=== PATIENT | female | born 1975 | race Caucasian/White ===

== ENCOUNTER → 2016-10-03 | Outpatient (CLI) | payer BC ==
[~2016-10-03] MED LIST: GLC/500 PO; LEVO88TA22 PO; LIOT5TAB9 PO; PRENTAB26
[2016-10-03 10:04] LABS: CHOLESTEROL/HDL RATIO 2.5; ESTIMATED AVERAGE GLUCOSE 100 mg/dl; HA1C FLAG Normal (Normal); THYROID STIMULATING HORMONE 3.8 uIu/ml (0.300-4.500)
== END | disposition home or self-care (01) ==
LOC: C.LAB 07:12
PROVIDERS: ATTEND Family Medicine
DX: E88.81 Metabolic syndrome and other insulin resistance (principal); E03.9 Hypothyroidism, unspecified

== ENCOUNTER → 2016-10-24 | Outpatient (CLI) | payer BC ==
--- NOTE | 2016-10-24 14:27 | MAMMOGRAPHY REPORT ---
BILATERAL FIRST EVER DIGITAL SCREENING MAMMOGRAM TOMOSYNTHESIS WITH CAD: 10/24/2016 CLINICAL HISTORY: Routine screening. Baseline exam. TECHNIQUE: Breast tomosynthesis in addition to standard 2D mammography was performed. Current study was also evaluated with a Computer Aided Detection (CAD) system. COMPARISON: No prior exams were available for comparison. BREAST COMPOSITION: The tissue of both breasts is heterogeneously dense, which may obscure small ma sses. FINDINGS: No suspicious masses, calcifications, or areas of architectural distortion are noted in e ither breast. IMPRESSION: ACR BI-RADS CATEGORY 1: NEGATIVE There is no mammographic evidence of malignancy. A 1 year screening mammogram is recommended. The p atient will receive written notification of the results. Approximately 10% of breast cancers are not detected with mammography. A negative mammographic repor t should not delay biopsy if a clinically suggestive mass is present. Mercedes Betancourt M.D. ah/:10/24/2016 10:33:57 Bus Driver: Gregory PEDRAZA(Pooja)(Boy), [facility] letter sent: Normal 1/2 BI-RADS Code: ACR BI-RADS Category 1: Negative
== END | disposition home or self-care (01) ==
LOC: C.MAMM 09:45
PROVIDERS: ATTEND Obstetrics & Gynecology
DX: Z12.31 Encounter for screening mammogram for malignant neoplasm of breast (principal)

== ENCOUNTER → 2016-11-26 | Outpatient (CLI) | payer BC ==
[2016-11-26 19:32] LABS: THYROID STIMULATING HORMONE 0.203 uIu/ml (0.300-4.500)
== END | disposition home or self-care (01) ==
LOC: C.LAB 18:13
PROVIDERS: ATTEND Family Medicine
DX: E03.9 Hypothyroidism, unspecified (principal)

== ENCOUNTER → 2017-01-28 | Outpatient (CLI) | payer BC | END | disposition home or self-care (01) | LOC: C.LAB 18:19 | PROVIDERS: ATTEND Family Medicine | DX: E03.9 Hypothyroidism, unspecified (principal) ==

== ENCOUNTER → 2017-03-29 | Outpatient (CLI) | payer BC ==
[2017-03-29 10:13] LABS: ALT/SGPT 53 U/L (12-78); AST/SGOT 25 U/L (15-37); BLOOD UREA NITROGEN 14 mg/dl (7-18); BUN/CREATININE RATIO 16.6 (10-20); CALCIUM 8.2 mg/dl (8.5-10.1); CARBON DIOXIDE 29 mmol/L (21-32); CHLORIDE 107 mmol/L (98-107); CREATININE 0.82 mg/dl (0.60-1.20); GLUCOSE 89 mg/dl (70-99); POTASSIUM 3.7 mmol/L (3.5-5.1); SODIUM 139 mmol/L (136-145)
[2017-03-29 10:22] LABS: ALKALINE PHOSPHATASE 90 U/L (45-117); CHOLESTEROL 202 mg/dl (0-200); CHOLESTEROL/HDL RATIO 2.7; HDL CHOLESTEROL 74 mg/dl; LDL CHOLESTEROL CALCULATED 116 mg/dl; THYROID STIMULATING HORMONE 0.304 uIu/ml (0.300-4.500); TRIGLYCERIDES 59 mg/dl (0-150); VERY LOW DENSITY LIPOPROT CALC 12 mg/dl
[2017-03-29 12:28] LABS: ESTIMATED AVERAGE GLUCOSE 103 mg/dl; HA1C FLAG Normal (Normal)
== END | disposition home or self-care (01) ==
LOC: C.LAB 07:28
PROVIDERS: ATTEND Family Medicine
DX: E88.81 Metabolic syndrome and other insulin resistance (principal)

== ENCOUNTER → 2017-04-04 | Outpatient (CLI) | payer BC ==
[2017-04-04 09:39] LABS: URINE APPEARANCE CLEAR (CLEAR); URINE BILIRUBIN NEG (NEG); URINE COLOR YELLOW; URINE NITRITE NEG (NEG); URINE PH 8.5 (4.5-7.5); URINE SPECIFIC GRAVITY 1.016 (1.000-1.030); UROBILINOGEN NEG (NEG)
[2017-04-04 09:50] LABS: MANUAL MICROSCOPIC REQUIRED? NO; REVIEW REQ? NO
[2017-04-09 23:56] LABS: ANTI-CENTROMERE AB <1.0 NEG AI (<1.0 NEG); ANTI-SS-A <1.0 NEG AI (<1.0 NEG); ANTI-SS-B <1.0 NEG AI (<1.0 NEG); DNA ds CRITHIDIA NEGATIVE (NEGATIVE); Sm Antibody <1.0 NEG AI (<1.0 NEG)
== END ==
LOC: C.LAB 08:07
PROVIDERS: ATTEND Family Medicine
DX: R76.8 Other specified abnormal immunological findings in serum (principal)

== ENCOUNTER → 2017-06-25 | Outpatient (CLI) | payer BC | END | disposition home or self-care (01) | LOC: C.LAB 08:30 | PROVIDERS: ATTEND Family Medicine | DX: E03.9 Hypothyroidism, unspecified (principal); M19.90 Unspecified osteoarthritis, unspecified site ==

== ENCOUNTER → 2017-08-30 | Outpatient (CLI) | payer BC | END | disposition home or self-care (01) | LOC: C.PAPS 15:17 | PROVIDERS: ATTEND Obstetrics & Gynecology | DX: Z01.419 Encounter for gynecological examination (general) (routine) without abnormal findings (principal) ==

== ENCOUNTER → 2017-10-18 | Outpatient (CLI) | payer BC, OTHER | END | disposition home or self-care (01) | LOC: C.LAB 07:45 | PROVIDERS: ATTEND Family Medicine | DX: E03.9 Hypothyroidism, unspecified (principal); E55.9 Vitamin D deficiency, unspecified ==

== ENCOUNTER → 2017-11-28 | Outpatient (CLI) | payer BC ==
--- NOTE | 2017-12-02 08:06 | MAMMOGRAPHY REPORT ---
BILATERAL DIGITAL SCREENING MAMMOGRAM TOMOSYNTHESIS WITH CAD: 11/28/2017 CLINICAL HISTORY: Routine screening. Patient has no complaints. TECHNIQUE: Breast tomosynthesis in addition to standard 2D mammography was performed. Current study was also evaluated with a Computer Aided Detection (CAD) system. COMPARISON: Comparison is made to exam dated: 10/24/2016 mammogram - [facility]. BREAST COMPOSITION: The tissue of both breasts is heterogeneously dense, which may obscure small mas ses. FINDINGS: There are two adjacent partially circumscribed and partially obscured 5 mm masses seen with in the left medial breast on the CC tomosynthesis images, not clearly evident on the MLO views. Tony mmend ultrasound and possible additional spot compression views for further evaluation. These may re present cysts or intramammary lymph nodes. The remainder of both breasts demonstrate no suspicious ma sses, calcifications, or areas of architectural distortion. IMPRESSION: ACR BI-RADS CATEGORY 0: INCOMPLETE EVALUATION: NEED ADDITIONAL IMAGING EVALUATION Two medial left breast masses, for which additional imaging evaluation is recommended. The patient w ill be called to schedule an appointment. Approximately 10% of breast cancers are not detected with mammography. A negative mammographic report should not delay biopsy if a clinically suggestive mass is present. Mercedes Betancourt M.D. ah/:11/28/2017 16:28:46 Public Address Systems Mechanic: Pooja Small M, [facility] letter sent: Addl Imaging 0 BI-RADS Code: ACR BI-RADS Category 0: Incomplete Evaluation: Need Additional Imaging Evaluation
== END | disposition home or self-care (01) ==
LOC: C.MAMM 11:25
PROVIDERS: ATTEND Obstetrics & Gynecology
DX: Z12.31 Encounter for screening mammogram for malignant neoplasm of breast (principal); N63.20 Unspecified lump in the left breast, unspecified quadrant

== ENCOUNTER → 2017-12-10 | Outpatient (CLI) | payer BC ==
--- NOTE | 2017-12-10 12:47 | MAMMOGRAPHY REPORT ---
UNILATERAL LEFT DIGITAL DIAGNOSTIC MAMMOGRAM TOMOSYNTHESIS AND TARGETED LEFT ULTRASOUND: 12/10/2017 CLINICAL HISTORY: 42-year-old woman called back from screening mammography for 2 medial breast masses measuring 5 mm. TECHNIQUE: Spot compression left CC and MLO tomosynthesis images were obtained. COMPARISON: Comparison is made to exams dated: 11/28/2017 mammogram and 10/24/2016 mammogram - [facility]. BREAST COMPOSITION: The tissue of the left breast is extremely dense, which lowers the sensitivity o f mammography. FINDINGS: The spot compression tomosynthesis left CC view demonstrates 1 persistent oval circumscribe d 5.7 x 3.6 mm mass in the medial, middle one third of the breast. The other nodularity in the middl e to anterior medial breast may correspond with tortuous blood vessels, which are best appreciated on the tomosynthesis images. There is no evidence of a spiculated or irregular mass, area of solution architect ural distortion or suspicious calcifications. Further evaluation with ultrasound was performed throu ghout the medial left breast. Targeted ultrasound was performed throughout the medial left breast. There are numerous anechoic hanna ign cysts seen throughout the upper inner quadrant. No suspicious solid or cystic mass is seen throu ghout the left lower inner quadrant. The largest benign simple cysts are seen in the 9:00 left breas t, 3 cm from the nipple, measuring 6.1 x 3.3 x 4.9 mm. This cyst is thought to correspond with the pe rsistent circumscribed 5 mm mammographic mass. In the 11:00 left breast, 5 cm from the nipple, measur ing 6.5 x 3.8 x 5.9 mm, and in the 10:00 left breast, 2 cm from the nipple, measuring 5.8 mm. No sánchez picious solid mass is definitely seen. IMPRESSION: ACR BI-RADS CATEGORY 2: BENIGN, TARGETED ULTRASOUND ACR BI-RADS CATEGORY 2: BENIGN The spot compression tomosynthesis images of the left breast demonstrate only one definitive oval cir cumscribed 5 mm mass in the medial, middle one third of the left breast, thought to correlate with a benign simple cyst on ultrasound. Additional mammographic nodularity could represent tortuous and ec tatic vascular structures. Targeted ultrasound performed throughout the medial left breast demonstra farhan numerous benign cysts compatible with fibrocystic changes. There is no mammographic or targeted sonographic evidence of malignancy in the left breast. Recommend routine screening tomosynthesis joan mography in 1 year. Approximately 10% of breast cancers are not detected with mammography. A negative mammographic report should not delay biopsy if a clinically suggestive mass is present. Nery Deshpande M.D. ay/:12/10/2017 12:13:53 Inspector Tubes: Sheridan PACHECO)(Boy), [facility] letter sent: Normal 1/2 BI-RADS Code: ACR BI-RADS Category 2: Benign Ultrasound BI-RADS: ACR BI-RADS Category 2: Benign
== END | disposition home or self-care (01) ==
LOC: C.MAMM 11:11
PROVIDERS: ATTEND Obstetrics & Gynecology
DX: N63.20 Unspecified lump in the left breast, unspecified quadrant (principal); N60.02 Solitary cyst of left breast

== ENCOUNTER 2023-01-09 21:41 | Inpatient (IN) ==
[2023-01-09] MEDS ORDERED: SODIUM CHLORIDE 0.9% 1000ML 1,000 ML IV SCH ×2 (22:00→23:15)
--- NOTE | 2023-01-09 22:06 | Emergency Department Note ---
History of Present Illness General Chief complaint: Tachycardia Stated complaint: FAST HEART RATE, Time Seen by Provider: 01/09/23 21:49 History of Present Illness Maximum Pain Intensity: 4 This is a 47-year-old female presenting to the emergency department for evaluation of elevated heart rate for the past 2 days. Patient has a complicated medical history including breast cancer. She is on chemotherapy, and has been on treatment for roughly 2 years. She previously has undergone ra diation treatment. There is history of thyroid disease as well. The patient has not had known fevers or chills. No chest pain or chest tightness. She feels like she is using the bathroom as normal. She has had some intermittent palpitations throughout her cancer experience, but never to this extent and for this length of time. She has been drinking increased water. She does not have any URI or distinct fever. She may have had chills the other day. She does have a port available for access rates her current discomfort a 4/10. There is an old history of DVT, and she is not currently on any blood thinners. Home Medications Medication Instructions Recorded Confirmed Type venlafaxine 150 mg 150 mg PO QAM 02/06/19 01/09/23 History capsule,extended release 24 hr albuterol sulfate 90 mcg/actuation 2 puffs inhalation Q4H PRN 02/08/20 01/09/23 Rx aerosol inhaler shortness of breath or wheezing #1 g cholecalciferol (vitamin D3) 125 5,000 units PO DAILY 02/08/20 01/09/23 History mcg (5,000 unit) tablet meloxicam 15 mg tablet 15 mg PO DAILY PRN pain #30 tabs 02/08/20 01/09/23 Rx AMINO ACID SUPREME 1 tab PO QAM 12/29/20 01/09/23 History YOLANDE MAG 1 tab PO QAM 12/29/20 01/09/23 History PROBIOTIC SUPREME 1 tab PO QAM 12/29/20 01/09/23 History THYROMIN 1 tab PO QAM 12/29/20 01/09/23 History cetirizine 10 mg tablet 10 mg PO DAILY 12/29/20 01/09/23 History sertraline 50 mg tablet 75 mg PO QAM 11/07/21 01/09/23 History medical marijuana 1 dose inhalation DIRECTED PRN 03/19/22 01/09/23 History NEEDED xpowwhdcod-[id number]-skklycet 1 tab PO Q4H PRN migraine headache 04/24/22 01/09/23 History 50 mg-325 mg-40 mg tablet loratadine 10 mg tablet (Claritin) 10 mg PO DAILY 04/24/22 01/09/23 History pantoprazole 40 mg tablet,delayed 40 mg PO DAILY 04/24/22 01/09/23 History release anastrozole 1 mg tablet 1 mg PO DAILY 10/05/22 01/09/23 History multivitamin 1 tab PO DAILY 10/05/22 01/09/23 History ondansetron HCl 8 mg tablet 8 mg PO Q8H PRN NAUSEA/VOMITING 10/05/22 01/09/23 History prochlorperazine maleate 10 mg 10 mg PO Q6H PRN NAUSEA/VOMITING 10/05/22 01/09/23 History tablet (Compazine) sennosides 8.6 mg tablet (Senokot) 8.6 mg PO DAILY 10/05/22 01/09/23 History levothyroxine 100 mcg tablet 100 mcg PO DAILY #30 tabs 12/19/22 01/09/23 Rx liothyronine 5 mcg tablet 5 mcg PO QAM #90 tabs 01/08/23 01/09/23 Rx goserelin 3.6 mg subcutaneous 0 mg subcut MONTHLY 01/09/23 01/09/23 History implant (Zoladex) Allergies Allergy/AdvReac Type Severity Reaction Status Date / Time animal dander Allergy Intermediate NASAL Verified 01/09/23 22:50 CONGESTION house dust AdvReac Intermediate NASAL Verified 01/09/23 22:50 CONGESTION Past Med/Surg History Medical History Allergic rhinitis TAMERA positive mixed connective disorder Arthritis Depression, major DVT (deep venous thrombosis) Right subclavian 11/2021 Dysmetabolic syndrome X GERD without esophagitis Jagjit's thyroiditis Hiatal hernia Hypercholesterolemia Hyperlipidemia Hypothyroidism Irregular menstrual cycle Low back pain Migraine headache Multilevel degenerative disc disease Psoriasis Raynaud's disease Reactive airway disease Tinnitus Surgical History H/O bilateral mastectomy (04/03/22) w/ reconstruction H/O dilation and curettage 2010 History of History of eye surgery History of wisdom tooth extraction Port-A-Cath in place (11/20/21) Port placement with fluoroscopy. Dr. Hebert 11/20/2021 Family History Mother Hypertension Dyslipidemia Grandfather Cancer Colorectal cancer Grandfather (Maternal) Myocardial infarction Prostate cancer Heart disease Stroke Father Hypertension Grandfather (Paternal) Pancreatic cancer Other Environmental allergies No family history of adverse response to anesthesia No family history of bleeding disorder Denies family history of Ovarian cancer Breast cancer Social History Smoking Status: Never smoker Second Hand Exposure: No; Do You Dip or Chew Tobacco: No; Hx Alcohol Use: No (no alcohol for year and a half) Hx Substance Use: No Preferred Language: Burundian Communication Ability: Effective Visual Impairment: No Limitations Hearing Ability: Normal Commercial Lending Assistant Required: No Beliefs That Will Affect Care: None marital status: Current Living Situation: Spouse current occupational status: employed 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 How many Children do You have: 4 Feels Safe at Home: Yes Childhood Exposure to Second-Hand Smoke: Yes Diet Comment: paleo diet caffeine: Yes during the past year weight has: remained stable Dental Care, Regularly: Yes Physical Activity Frequency: Daily Seatbelt Use: always Sunscreen Use: Yes Assistive Devices: Glasses Review of Systems A total of 10 systems reviewed and were otherwise negative Physical Exam Vital Signs Vital Signs - 24 hr 01/10/23 00:00 01/10/23 00:30 01/10/23 00:55 Pulse Rate 107 H 98 H Pulse Rate from SpO2 Sensor 106 H 98 H Respiratory Rate 14 23 Blood Pressure 106/66 Blood Pressure Mean 79 Pulse Oximetry 94 94 96 Oxygen Delivery Method Room Air Room Air Room Air 01/10/23 01:00 Pulse Rate 92 H Pulse Rate from SpO2 Sensor 93 H Respiratory Rate 18 Blood Pressure 91/61 L Blood Pressure Mean 71 Pulse Oximetry 94 Oxygen Delivery Method Room Air VITALS: Vitals are noted on the nurse's note and reviewed by myself. Vital sig ns with notable tachycardia. GENERAL: Well-developed, well-nourished, white female, who is in no acute distress and resting comfortably. Patient is cooperative with the examination. HEAD: Normocephalic atraumatic. NECK: Supple without nuchal rigidity. No lymphadenopathy. No thyromegaly. Cervical spine is nontender. HEART: Tachycardic rate with regular rhythm LUNGS: Clear to auscultation bilaterally without wheezes, rales or rhonchi. No retractions or accessory muscle use. ABDOMEN: Positive normal bowel sounds x 4. Soft, nontender, without masses or organomegaly. No guarding or rebound tenderness. MUSCULOSKELETAL: No muscle atrophy, erythema, or edema noted. Full range of motion in all extremities. NEURO: Patient was alert and oriented to person place and time. CN II through XII grossly intact. No focal neurological deficits. GCS 15. Course Administered Medications Acetaminophen (Acetaminophen 325 Mg Tab) 650 mg PO Q4H PRN PRN Reason: Pain or Fever Stop: 02/09/23 02:18 Last Admin: 01/10/23 20:44 Dose: 650 mg Documented By: Admin: 01/10/23 16:27 Dose: 650 mg Documented By: Admin: 01/10/23 11:54 Dose: 650 mg Documented By: ALENA Anastrozole (Anastrozole 1 Mg Tab) 1 mg PO DAILY [facility] Stop: 02/09/23 08:59 Last Admin: 01/10/23 08:05 Dose: 1 mg Documented By: ALENA Co-signed By: Aspirin (Aspirin 81 Mg Ectab) [facility] [place]: 01/11/23 09:01 Last Admin: 01/10/23 09:43 Dose: 81 mg Documented By: ALENA Heparin Sodium (Porcine) (Heparin Sod 5,000 Unit/0.5 Ml Vial) 5,000 units SQ Q12 [facility] Stop: 02/09/23 08:59 Last Admin: 01/10/23 19:57 Dose: 5,000 units Documented By: Admin: 01/10/23 08:06 Dose: 5,000 units Documented By: ALENA Vancomycin HCl 1,000 mg/ (Sodium Chloride) 270 mls @ 200 mls/hr IV Q12H [facility]; Protocol Stop: 01/12/23 04:59 Last Infusion: 01/10/23 17:48 Dose: 0 mls/hr Documented By: Admin: 01/10/23 16:27 Dose: 200 mls/hr Documented By: Infusion: 01/10/23 06:52 Dose: 0 mls/hr Documented By: Admin: 01/10/23 05:31 Dose: 200 mls/hr Documented By: LUCERO Lactobacillus Acidophilus (Advanced Probiotic 1250 Mg Capsule) 2 cap PO QAM [facility] Stop: 02/09/23 08:59 Last Admin: 01/10/23 08:06 Dose: 2 cap Documented By: ALENA Levothyroxine Sodium (Levothyroxine Sodium 100 Mcg Tablet) 100 mcg PO DAILYBB LES Stop: 02/09/23 06:29 Last Admin: 01/10/23 05:29 Dose: 100 mcg Documented By: LUCERO Liothyronine Sodium (Liothyronine Sodium 5 Mcg Tab) 5 mcg PO DAILYBB LES Stop: 02/09/23 06:29 Last Admin: 01/10/23 05:29 Dose: 5 mcg Documented By: LUCERO Multivitamins (Multivitamin Tab) 1 tab PO DAILY [facility] Stop: 02/09/23 08:59 Last Admin: 01/10/23 08:06 Dose: 1 tab Documented By: ALENA Pantoprazole Sodium (Pantoprazole 40 Mg Tab) 40 mg PO DAILY [facility] Stop: 02/09/23 08:59 Last Admin: 01/10/23 09:43 Dose: 40 mg Documented By: ALENA Sennosides (Senna 8.6 Mg Tab) 8.6 mg PO DAILY [facility]ES Stop: 02/09/23 08:59 Last Admin: 01/10/23 08:06 Dose: 8.6 mg Documented By: ALENA Sertraline HCl (Sertraline Hcl 50 Mg Tablet) 75 mg PO QAM LES Stop: 02/09/23 08:59 Last Admin: 01/10/23 08:05 Dose: 75 mg Documented By: ALENA Venlafaxine HCl (Venlafaxine Hcl Xr 150 Mg Capxr) 150 mg PO QAM LES Stop: 02/09/23 08:59 Last Admin: 01/10/23 08:05 Dose: 150 mg Documented By: ALENA Vitamin D (Cholecalciferol 5,000 Units 125 Mcg Tab) 5,000 units PO DAILY LES Stop: 02/09/23 08:59 Last Admin: 01/10/23 08:05 Dose: 5,000 units Documented By: ALENA Discontinued Medications Acetaminophen (Acetaminophen 500 Mg Tab) 1,000 mg PO NOW STA Stop: 01/09/23 22:57 Last Admin: 01/09/23 23:23 Dose: 1,000 mg Documented By: IVON Sodium Chloride (Nss 1000ml) 1,000 mls @ 999 mls/hr IV .Q1H1M LES Stop: 01/09/23 23:00 Last Infusion: 01/10/23 00:45 Dose: 0 mls/hr Documented By: Admin: 01/09/23 23:25 Dose: 999 mls/hr Documented By: IVON Sodium Chloride (Nss 1000ml) 1,000 mls @ 999 mls/hr IV .Q1H1M LES Stop: 01/10/23 00:15 Last Infusion: 01/10/23 00:45 Dose: 0 mls/hr Documented By: Admin: 01/09/23 23:28 Dose: 999 mls/hr Documented By: IVON Vancomycin HCl 1,250 mg/ (Sodium Chloride) 525 mls @ 200 mls/hr IV NOW ONE Stop: 01/10/23 01:38 Last Admin: 01/10/23 00:37 Dose: 200 mls/hr Documented By: IVON Piperacillin Sod/Tazobactam Sod (Zosyn) 4.5 gm in 120 mls @ 240 mls/hr IV NOW ONE Stop: 01/09/23 23:30 Last Infusion: 01/10/23 00:18 Dose: 0 mls/hr Documented By: Admin: 01/09/23 23:28 Dose: 240 mls/hr Documented By: IVON Pantoprazole Sodium 40 mg/ (Syringe) 10 mls @ 5 mls/min IV NOW ONE Stop: 01/10/23 00:24 Last Admin: 01/10/23 00:40 Dose: 5 mls/min Documented By: IVON Sodium Chloride (Nss 1000ml) 1,000 mls @ 100 mls/hr IV .Q10H LES Stop: 01/10/23 10:59 Last Infusion: 01/10/23 10:59 Dose: 0 mls/hr Documented By: Admin: 01/10/23 01:47 Dose: 100 mls/hr Documented By: IVON Piperacillin Sod/Tazobactam (Sod 4.5 gm/ Dextrose) 120 mls @ 30 mls/hr IV Q8H LES; Protocol Stop: 01/12/23 05:59 Last Infusion: 01/10/23 14:28 Dose: 0 mls/hr Documented By: Admin: 01/10/23 13:49 Dose: 30 mls/hr Documented By: Infusion: 01/10/23 09:30 Dose: 0 mls/hr Documented By: Admin: 01/10/23 05:30 Dose: 30 mls/hr Documented By: LUCERO Ibuprofen (Ibuprofen 600 Mg Tab) 600 mg PO NOW STA Stop: 01/09/23 22:57 Last Admin: 01/09/23 23:23 Dose: 600 mg Documented By: IVON Ioversol (Optiray 320 500ml) 125 ml IV ONCE ONE Stop: 01/09/23 23:51 Last Admin: 01/09/23 23:51 Dose: 112 ml Documented By: KENNY Potassium Chloride (Potassium Chloride Crtab 20 Meq Tabcr) 20 meq PO NOW STA Stop: 01/10/23 18:15 Last Admin: 01/10/23 18:42 Dose: 20 meq Documented By: ALENA Medical Decision Making Differential Diagnosis Differential diagnosis includes, but is not limited to: Myocardial infarction, dysrhythmia, pericarditis, pneumothorax, aortic aneurysm/dissection, DVT/PE, anxiety, GERD, PUD, electrolyte imbalance, thyroid disorder, pneumonia, bronchitis, pancreatitis, and others Laboratory Data 01/09/23 22:24 01/10/23 08:41 Lab Results 01/09/23 01/09/23 01/09/23 Range/Units 22:24 22:24 22:24 WBC 7.06 (4.8-10.8) K/ul RBC 4.14 L (4.20-5.40) M/uL Hgb 12.0 (12.0-16.0) g/dl Hct 34.7 L (37.0-47.0) % MCV 83.8 (80.0-100.0) fL MCH 29.0 (25.0-34.0) pg MCHC 34.6 (32.0-36.0) g/dL RDW Std Deviation 44.5 (36.4-46.3) fL RDW Coeff of Nichole 14.6 H (11.5-14.5) % Plt Count 72 L (130-400) K/uL MPV 10.2 (9.4-12.4) fL Immature Gran % (Auto) 0.6 % Neut % (Auto) 88.9 % Lymph % (Auto) 3.8 % Weston % (Auto) 6.4 % Eos % (Auto) 0.0 % Baso % (Auto) 0.3 % Neut # (Auto) 6.28 (1.40-6.50) K/uL Lymph # (Auto) 0.27 L (1.2-3.4) K/uL Weston # (Auto) 0.45 (0.11-0.59) K/uL Eos # (Auto) 0.00 (0-0.50) K/uL Baso # (Auto) 0.02 (0-0.2) K/uL Immature Gran # (Auto) 0.04 (0.01-0.20) K/uL Platelet Estimate Decreased L (Normal) Polychromasia 1+ PT 10.6 (9.0-12.0) Seconds INR 1.0 (0.9-1.1) APTT 29.4 (21.0-31.0) Seconds PTT Ratio 1.0 Sodium 128 L (136-145) mmol/L Potassium 3.7 (3.5-5.1) mmol/L Chloride 93 L (98-107) mmol/L Carbon Dioxide 26 (21-32) mmol/L Anion Gap 9 (3-11) BUN 12 (6-23) mg/dl Creatinine 0.79 (0.6-1.2) mg/dl Est Cr Clr Drug Dosing 77.3 ml/min Est GFR ( Amer) 104.0 ml/min Est GFR (Non-Af Amer) 89.8 ml/min BUN/Creatinine Ratio 15.2 (10-20) Glucose 126 H (70-99(Fasting)) mg/dl Lactate (0.4-2.0) mmol/L Calcium 8.4 L (8.6-10.3) mg/dl Total Bilirubin 0.6 (0.2-1.0) mg/dl AST 291 H (13-39) U/L ALT 171 H (7-52) U/L Alkaline Phosphatase 538 H (34-104) U/L Troponin I High Sens 25.7 H (0-14) pg/ml Total Protein 7.3 (6.0-8.3) gm/dl Albumin 3.5 (3.4-5.0) gm/dl Globulin 3.8 (2.5-4.0) gm/dl Albumin/Globulin Ratio 0.9 (0.9-2) Lipase 14 (11-82) U/L TSH (0.300-4.500) uIu/ml Urine Color Urine Appearance (Clear) Urine pH (4.5-7.5) Ur Specific [place] (1.000-1.030) Urine Protein (Negative) Urine Glucose (UA) (Negative) Urine Ketones (Negative) Urine Blood (Negative) Urine Nitrite (Negative) Urine Bilirubin (Negative) Urine Urobilinogen (Negative) Ur Leukocyte Esterase (Negative) Urine WBC (Auto) (0-5) /hpf Urine RBC (Auto) (0-4) /hpf U Hyaline Cast (Auto) (0-5) /lpf U Epithel Cells (Auto) (0-5) /lpf Urine Bacteria (Auto) (Negative) Adenovirus (PCR) (NotDetected) B. pertussis DNA (PCR) (NotDetected) B.parapertussis DNA PCR (NotDetected) C. pneumoniae DNA (PCR) (NotDetected) Coronavirus OC43 (PCR) (NotDetected) Coronavirus HKU1 (PCR) (NotDetected) Coronavirus 229E (PCR) (NotDetected) SARS-CoV-2 (PCR) (NotDetected) Coronavirus NL63 (PCR) (NotDetected) Human Metapneumovir PCR (NotDetected) Influenza Type A (PCR) (NotDetected) Influenza Type B (PCR) (NotDetected) M. pneumoniae (PCR) (NotDetected) Parainfluenza 1 (PCR) (NotDetected) Parainfluenza 2 (PCR) (NotDetected) Parainfluenza 3 (PCR) (NotDetected) Parainfluenza 4 (PCR) (NotDetected) RSV (PCR) (NotDetected) Entero/Rhino (PCR) (NotDetected) Streptococcus sp PCR (NotDetected) Bld Cult ID Panel PCR (NotDetected) 01/09/23 01/09/23 01/09/23 Range/Units 22:24 22:24 22:24 WBC (4.8-10.8) K/ul RBC (4.20-5.40) M/uL Hgb (12.0-16.0) g/dl Hct (37.0-47.0) % MCV (80.0-100.0) fL MCH (25.0-34.0) pg MCHC (32.0-36.0) g/dL RDW Std Deviation (36.4-46.3) fL RDW Coeff of Nichole (11.5-14.5) % Plt Count (130-400) K/uL MPV (9.4-12.4) fL Immature Gran % (Auto) % Neut % (Auto) % Lymph % (Auto) % Weston % (Auto) % Eos % (Auto) % Baso % (Auto) % Neut # (Auto) (1.40-6.50) K/uL Lymph # (Auto) (1.2-3.4) K/uL Weston # (Auto) (0.11-0.59) K/uL Eos # (Auto) (0-0.50) K/uL Baso # (Auto) (0-0.2) K/uL Immature Gran # (Auto) (0.01-0.20) K/uL Platelet Estimate (Normal) Polychromasia PT (9.0-12.0) Seconds INR (0.9-1.1) APTT (21.0-31.0) Seconds PTT Ratio Sodium (136-145) mmol/L Potassium (3.5-5.1) mmol/L Chloride (98-107) mmol/L Carbon Dioxide (21-32) mmol/L Anion Gap (3-11) BUN (6-23) mg/dl Creatinine (0.6-1.2) mg/dl Est Cr Clr Drug Dosing ml/min Est GFR ( Amer) ml/min Est GFR (Non-Af Amer) ml/min BUN/Creatinine Ratio (10-20) Glucose (70-99(Fasting)) mg/dl Lactate 3.1 H* (0.4-2.0) mmol/L Calcium (8.6-10.3) mg/dl Total Bilirubin (0.2-1.0) mg/dl AST (13-39) U/L ALT (7-52) U/L Alkaline Phosphatase (34-104) U/L Troponin I High Sens (0-14) pg/ml Total Protein (6.0-8.3) gm/dl Albumin (3.4-5.0) gm/dl Globulin (2.5-4.0) gm/dl Albumin/Globulin Ratio (0.9-2) Lipase (11-82) U/L TSH 1.052 (0.300-4.500) uIu/ml Urine Color Urine Appearance (Clear) Urine pH (4.5-7.5) Ur Specific [place] (1.000-1.030) Urine Protein (Negative) Urine Glucose (UA) (Negative) Urine Ketones (Negative) Urine Blood (Negative) Urine Nitrite (Negative) Urine Bilirubin (Negative) Urine Urobilinogen (Negative) Ur Leukocyte Esterase (Negative) Urine WBC (Auto) (0-5) /hpf Urine RBC (Auto) (0-4) /hpf U Hyaline Cast (Auto) (0-5) /lpf U Epithel Cells (Auto) (0-5) /lpf Urine Bacteria (Auto) (Negative) Adenovirus (PCR) (NotDetected) B. pertussis DNA (PCR) (NotDetected) B.parapertussis DNA PCR (NotDetected) C. pneumoniae DNA (PCR) (NotDetected) Coronavirus OC43 (PCR) (NotDetected) Coronavirus HKU1 (PCR) (NotDetected) Coronavirus 229E (PCR) (NotDetected) SARS-CoV-2 (PCR) (NotDetected) Coronavirus NL63 (PCR) (NotDetected) Human Metapneumovir PCR (NotDetected) Influenza Type A (PCR) (NotDetected) Influenza Type B (PCR) (NotDetected) M. pneumoniae (PCR) (NotDetected) Parainfluenza 1 (PCR) (NotDetected) Parainfluenza 2 (PCR) (NotDetected) Parainfluenza 3 (PCR) (NotDetected) Parainfluenza 4 (PCR) (NotDetected) RSV (PCR) (NotDetected) Entero/Rhino (PCR) (NotDetected) Streptococcus sp PCR DETECTED A (NotDetected) Bld Cult ID Panel PCR See PCR Comment (NotDetected) 01/09/23 01/10/23 01/10/23 Range/Units 23:50 00:42 00:50 WBC (4.8-10.8) K/ul RBC (4.20-5.40) M/uL Hgb (12.0-16.0) g/dl Hct (37.0-47.0) % MCV (80.0-100.0) fL MCH (25.0-34.0) pg MCHC (32.0-36.0) g/dL RDW Std Deviation (36.4-46.3) fL RDW Coeff of Nichole (11.5-14.5) % Plt Count (130-400) K/uL MPV (9.4-12.4) fL Immature Gran % (Auto) % Neut % (Auto) % Lymph % (Auto) % Weston % (Auto) % Eos % (Auto) % Baso % (Auto) % Neut # (Auto) (1.40-6.50) K/uL Lymph # (Auto) (1.2-3.4) K/uL Weston # (Auto) (0.11-0.59) K/uL Eos # (Auto) (0-0.50) K/uL Baso # (Auto) (0-0.2) K/uL Immature Gran # (Auto) (0.01-0.20) K/uL Platelet Estimate (Normal) Polychromasia PT (9.0-12.0) Seconds INR (0.9-1.1) APTT (21.0-31.0) Seconds PTT Ratio Sodium (136-145) mmol/L Potassium (3.5-5.1) mmol/L Chloride (98-107) mmol/L Carbon Dioxide (21-32) mmol/L Anion Gap (3-11) BUN (6-23) mg/dl Creatinine (0.6-1.2) mg/dl Est Cr Clr Drug Dosing ml/min Est GFR ( Amer) ml/min Est GFR (Non-Af Amer) ml/min BUN/Creatinine Ratio (10-20) Glucose (70-99(Fasting)) mg/dl Lactate 1.0 (0.4-2.0) mmol/L Calcium (8.6-10.3) mg/dl Total Bilirubin (0.2-1.0) mg/dl AST (13-39) U/L ALT (7-52) U/L Alkaline Phosphatase (34-104) U/L Troponin I High Sens (0-14) pg/ml Total Protein (6.0-8.3) gm/dl Albumin (3.4-5.0) gm/dl Globulin (2.5-4.0) gm/dl Albumin/Globulin Ratio (0.9-2) Lipase (11-82) U/L TSH (0.300-4.500) uIu/ml Urine Color Yellow Urine Appearance Clear (Clear) Urine pH 7.5 (4.5-7.5) Ur Specific [place] > 1.045 H (1.000-1.030) Urine Protein 2+ H (Negative) Urine Glucose (UA) Negative (Negative) Urine Ketones Negative (Negative) Urine Blood 1+ H (Negative) Urine Nitrite Negative (Negative) Urine Bilirubin Negative (Negative) Urine Urobilinogen Negative (Negative) Ur Leukocyte Esterase Negative (Negative) Urine WBC (Auto) 1-5 (0-5) /hpf Urine RBC (Auto) 10-30 H (0-4) /hpf U Hyaline Cast (Auto) 1-5 (0-5) /lpf U Epithel Cells (Auto) 5-10 H (0-5) /lpf Urine Bacteria (Auto) Negative (Negative) Adenovirus (PCR) Not Detected (NotDetected) B. pertussis DNA (PCR) Not Detected (NotDetected) B.parapertussis DNA PCR Not Detected (NotDetected) C. pneumoniae DNA (PCR) Not Detected (NotDetected) Coronavirus OC43 (PCR) Not Detected (NotDetected) Coronavirus HKU1 (PCR) Not Detected (NotDetected) Coronavirus 229E (PCR) Not Detected (NotDetected) SARS-CoV-2 (PCR) Not Detected (NotDetected) Coronavirus NL63 (PCR) Not Detected (NotDetected) Human Metapneumovir PCR Not Detected (NotDetected) Influenza Type A (PCR) Not Detected (NotDetected) Influenza Type B (PCR) Not Detected (NotDetected) M. pneumoniae (PCR) Not Detected (NotDetected) Parainfluenza 1 (PCR) Not Detected (NotDetected) Parainfluenza 2 (PCR) Not Detected (NotDetected) Parainfluenza 3 (PCR) Not Detected (NotDetected) Parainfluenza 4 (PCR) Not Detected (NotDetected) RSV (PCR) Not Detected (NotDetected) Entero/Rhino (PCR) Not Detected (NotDetected) Streptococcus sp PCR (NotDetected) Bld Cult ID Panel PCR (NotDetected) ECG Data Attestation: I personally reviewed and interpreted this ECG as follows: Indication: + tachycardia Additional Comments: Sinus tachycardia @[address] and T wave abnormality Anterior leads Abnormal ECG No previous ECGs available MDM Narrative Physical exam and history were performed. Nursing notes, EMR, and Medication List were personally reviewed. No social concerns were identified as barriers to patients care. Patient appears to have elevated heart rate symptoms for the past 2 days bringing her to the ER. Her medical history is complicated as she has breast cancer and is on chemotherapy. She has had difficulty with recurrent left breast infections and had to have her spacers removed relatively recently. She is afebrile here in the department. IV access was established and labs were obtained. She was hydrated with 2 L normal saline. Blood cultures and lactic were performed. An order was placed for continuous cardiac monitoring. The monitor shows a rate of 98 with normal sinus rhythm after 2 L normal saline. Patient's blood work is as above and was reviewed. She does not have a significantly elevated white blood cell count, gross anemia, bandemia, or significant electrolyte imbalance. Her LFTs are elevated of unknown etiology. Lactic is 3.1 concerning for sepsis. She was empirically started on vancomycin and Zosyn as we are unsure of the source. Urine is not with obvious infection. Because of the elevated LFTs and tachycardia with likely sepsis CT scans of the chest and belly were performed. CT scans were reviewed by myself and radiology showing no acute process. Case was discussed with the on-call hospitalist team for ongoing care. Patient is hemodynamically stable and vital signs have started to normalize after fluids and antibiotics. She does have a port which may be possible source. The patient was comfortable with staying in the hospital. Bio fire was negative. Please see the hospitalist team dictations for ongoing care and evaluation. The chart was completed utilizing [employer] Speech Voice Recognition Software. Grammatical errors, random word insertions, pronoun errors, and incomplete sentences are an occasional consequence of this system due to software limit ations, ambient noise, and hardware issues. Any formal questions or concerns about the content, text, or information contained within the body of this dictation should be directly addressed to the provider for clarification. . Impression & Plan Sepsis, Tachycardia, Immunocompromised state Discharge Plan Visit Data Chief Complaint: Tachycardia Stated Complaint: FAST HEART RATE, ED Provider: Alfredo Palacio ED Midlevel Provider: Mohan Brink Discharge Problem: Sepsis, Tachycardia, Immunocompromised state Patient Disposition: Admitted As Inpatient Discharge Instructions Interventions: ED Discharge Assessment Last Done: 01/10/23 02:19
[2023-01-09] MEDS ORDERED: ACETAMINOPHEN 500 MG TAB PO STA (22:56)
[2023-01-09] MEDS ORDERED: IBUPROFEN 600 MG TAB PO STA (22:56)
[2023-01-09] MEDS ORDERED: VANCOMYCIN HCL 1,250 MG in SODIUM CHLORIDE 0.9% 500 ML IV ONE (23:01)
[2023-01-09] MEDS ORDERED: PIPERACILLIN/TAZOBACTAM 4.5 GM/120 ML BAG IV ONE (23:01)
[2023-01-09] MEDS ORDERED: VANCOMYCIN CONSULT ACTIVE PRN (23:01)
[2023-01-09 23:19] LABS: Albumin Globulin Ratio 0.9 (0.9-2); Albumin Level 3.5 gm/dl (3.4-5.0); BUN Creatinine Ratio 15.2 (10-20); Bilirubin,Total 0.6 mg/dl (0.2-1.0); Calcium 8.4 mg/dl (8.6-10.3); Creatinine Clr Calc Pharmacy 77.3 ml/min; Est GFR (Non-African American) 89.8 ml/min; Globulin 3.8 gm/dl (2.5-4.0); Potassium 3.7 mmol/L (3.5-5.1); Total Protein 7.3 gm/dl (6.0-8.3)
[2023-01-09 23:24] LABS: Troponin I High Sensitivity 25.7 pg/ml (0-14)
[2023-01-09 23:41] LABS: Basophils # (auto) 0.02 K/uL (0-0.2); Basophils % (auto) 0.3 %; Hematocrit (blood only) 34.7 % (37.0-47.0); Immature Granulocytes # (auto) 0.04 K/uL (0.01-0.20); Immature Granulocytes % (auto) 0.6 %; Lymphocytes # (auto) 0.27 K/uL (1.2-3.4); Lymphocytes % (auto) 3.8 %; Mean Corpuscular Hgb Conc 34.6 g/dL (32.0-36.0); Mean Corpuscular Volume 83.8 fL (80.0-100.0); Mean Platelet Volume 10.2 fL (9.4-12.4); Monocytes # (auto) 0.45 K/uL (0.11-0.59); Monocytes % (auto) 6.4 %; Neutrophils # (auto) 6.28 K/uL (1.40-6.50); Neutrophils % (auto) 88.9 %; Platelet Count 72 K/uL (130-400); Platelet Estimate Decreased (Normal); Polychromasia 1+; RDW Coefficient of Variation 14.6 % (11.5-14.5); RDW Standard Deviation 44.5 fL (36.4-46.3); Red Blood Count 4.14 M/uL (4.20-5.40); White Blood Count 7.06 K/ul (4.8-10.8)
[2023-01-09] MEDS ORDERED: OPTIRAY 320 500ml IV ONE (23:50)
[2023-01-09 23:51] LABS: Partial Thromboplastin Time 29.4 Seconds (21.0-31.0); Prothrombin Time 10.6 Seconds (9.0-12.0)
--- NOTE | 2023-01-10 00:16 | CT Scan Report ---
Exam(s): CTA CHEST IV Amt: 112 ml optiray 320 EXAM: CT Angiography Chest With Intravenous Contrast CLINICAL HISTORY: Reason for exam: Tachy, Hx Breast Ca. TECHNIQUE: Axial computed tomographic angiography images of the chest with intravenous contrast. CTDI is 15.8 mGy and DLP is 502.2 mGy-cm. Automated exposure control was utilized for the study. A dose lowering technique was utilized adhering to the principles of ALARA. MIP reconstructed images were created and reviewed. COMPARISON: No relevant prior studies available. FINDINGS: Pulmonary arteries: Unremarkable. No pulmonary embolism. Aorta: No acute findings. No thoracic aortic aneurysm. Lungs: There is mild to moderate peribronchial thickening of the central and peripheral bronchi. No mass. No consolidation. Pleural space: Unremarkable. No significant effusion. No pneumothorax. Heart: Unremarkable. No cardiomegaly. No significant pericardial effusion. No evidence of RV dysfunction. Bones/joints: No acute fracture. No dislocation. Soft tissues: Splenomegaly. Hepatic steatosis. Status post left mastectomy with expected postsurgical changes. There is a right subclavian approach Port-A-Cath in the right chest wall. Lymph nodes: Prominent mediastinal and hilar left nodes. IMPRESSION: No evidence of pulmonary emboli. Findings concerning for bronchitis, which may be of infectious or inflammatory etiologies. Prominent mediastinal and hilar left nodes. No consolidation. Splenomegaly. Hepatic steatosis. Status post left mastectomy with expected postsurgical changes. Electronically signed by: Dari Hernandez MD 01/10/23 00:15 AM
--- NOTE | 2023-01-10 00:21 | CT Scan Report ---
Exam(s): CT ABDOMEN + PELVIS With Contrast IV Amt: 112 ml optiray 320 EXAM: CT Abdomen and Pelvis With Intravenous Contrast CLINICAL HISTORY: Reason for exam: Sepsis, cancer pt, elevated lft's. TECHNIQUE: Axial computed tomography images of the abdomen and pelvis with intravenous contrast. CTDI is 10.75 mGy and DLP is 529.73 mGy-cm. Automated exposure control was utilized for the study. A dose lowering technique was utilized adhering to the principles of ALARA. CONTRAST: Patient received 112 ml optiray 320 of IV contrast COMPARISON: Comparison made to prior CT scan of abdomen pelvis from November 16, 2021. FINDINGS: Lung bases: Unremarkable. No mass. No consolidation. ABDOMEN: Liver: Hepatic steatosis. No mass. Gallbladder and bile ducts: Unremarkable. No calcified stones. No ductal dilation. Pancreas: Unremarkable. No mass. No ductal dilation. Spleen: Splenomegaly. Adrenals: Unremarkable. No mass. Kidneys and ureters: Unremarkable. No solid mass. No hydronephrosis. Stomach and bowel: There is thickening and edema of the gastric antrum. PELVIS: Appendix: No findings to suggest acute appendicitis. Bladder: Unremarkable. No mass. Reproductive: Unremarkable as visualized. ABDOMEN and PELVIS: Intraperitoneal space: Unremarkable. No free air. No significant fluid collection. Bones/joints: There is a single sclerotic lesion within the L1 vertebral body. No acute fracture. No dislocation. Soft tissues: Unremarkable. Vasculature: Unremarkable. No abdominal aortic aneurysm. Lymph nodes: Unremarkable. No enlarged lymph nodes. IMPRESSION: Findings concerning for gastritis. Splenomegaly. Hepatic steatosis. Electronically signed by: Dari Hernandez MD 01/10/23 00:20 AM
[2023-01-10] MEDS ORDERED: PANTOprazole 40 MG in SYRINGE 0 ML IV ONE (00:23)
[2023-01-10 00:55] LABS: Adenovirus PCR Not Detected (NotDetected); Bordetella parapertussis PCR Not Detected (NotDetected); Bordetella pertussis PCR Not Detected (NotDetected); Chlamydia pneumoniae PCR Not Detected (NotDetected); Coronavirus 229E PCR Not Detected (NotDetected); Coronavirus CoV-2 (COVID19)PCR Not Detected (NotDetected); Coronavirus HKU1 PCR Not Detected (NotDetected); Coronavirus NL63 PCR Not Detected (NotDetected); Coronavirus OC43PCR Not Detected (NotDetected); Human Metapneumovirus PCR Not Detected (NotDetected); Influenza A PCR Not Detected (NotDetected); Influenza B PCR Not Detected (NotDetected); Mycoplasma pneumoniae PCR Not Detected (NotDetected); Parainfluenza Virus 1 PCR Not Detected (NotDetected); Parainfluenza Virus 2 PCR Not Detected (NotDetected); Parainfluenza Virus 3 PCR Not Detected (NotDetected); Parainfluenza Virus 4 PCR Not Detected (NotDetected); Respiratory Syncytial VirusPCR Not Detected (NotDetected); Rhinovirus/Enterovirus PCR Not Detected (NotDetected)
[2023-01-10] MEDS ORDERED: SODIUM CHLORIDE 0.9% 1000ML 1,000 ML IV SCH (01:00)
[2023-01-10 01:36] LABS: Appearance Urine Clear (Clear); Bacteria Urine Automated Negative (Negative); Bilirubin Urine Negative (Negative); Blood Urine 1+ (Negative); Color Urine Yellow; Glucose Urine UA Negative (Negative); Ketones Urine Negative (Negative); Leukocyte Esterase Urine Negative (Negative); Nitrite Urine Negative (Negative); Specific Gravity Urine > 1.045 (1.000-1.030); Urobilinogen Urine Negative (Negative); pH Urine 7.5 (4.5-7.5)
[2023-01-10 01:47] LABS: Protein Urine 2+ (Negative)
[2023-01-10] MEDS ORDERED: BUTALBITAL/ACETAMIN/CAFFEINE TAB PO PRN (02:19)
[2023-01-10] MEDS ORDERED: POLYETHYLENE (MIRALAX) 17 GM PACK PO PRN (02:19)
[2023-01-10] MEDS ORDERED: ALBUTEROL HFA 8 GM INHALER INH PRN (02:19)
[2023-01-10] MEDS ORDERED: GOSERELIN 3.6 MG SQ SCH (02:19)
[2023-01-10] MEDS ORDERED: ONDANSETRON 4 MG OD TAB PO PRN (02:47)
[2023-01-10] MEDS: LIOTHYRONINE SODIUM 5 MCG TAB PO SCH (05:29)
[2023-01-10] MEDS: LEVOTHYROXINE SODIUM 100 MCG TABLET PO SCH (05:29)
[2023-01-10] MEDS: PIPERACILLIN/TAZOBACTAM 4.5 GM CI (over 4 hours) IV SCH ×2 (05:30→13:49)
[2023-01-10] MEDS: VANCOMYCIN HCL 1,000 MG in SODIUM CHLORIDE 0.9% 250 ML IV SCH ×2 (05:31→16:27)
--- NOTE | 2023-01-10 05:39 | History & Physical Report ---
Date of Service January 10, 2023 Assessment & Plan (1) Lactic acidosis: Plan: Patient presents to ED with complaints of sustained palpitations has been present over the past 2 days. Patient also found to have elevated lactic acid of 3.1 in the ED. Presently on chemotherapy regimen for invasive ductal breast cancer patient is immunosuppressed Hence started on IV fluid bolus along with empiric antibiotic coverage with vancomycin and Zosyn in the ED Follow blood culture results and adjust antibiotics based on sensitivity results Follow lactic acid level and CBC in a.m. UA pending (2) Abnormal LFTs: Plan: Patient found to have elevated AST level of 291 and ALT 171 along with elevated alk phos levels recheck LFTs in a.m. and if remains elevated consider abdominal ultrasound/CT to rule out biliary cause. Obtain heme-onc input to see if LFT abnormality is a side effect of the present chemotherapy regimen (3) Palpitations: Plan: Patient presents with complaints of palpitations over the past 2 days Initial high sensitive troponin 25.7. Will follow trend No acute ST changes reported in ED Patient also presently on levothyroxine and Cytomel for thyroid supplementation. Check TSH level Patient also takes thyronine that is qlkx-klj-dzbiyja thyroid supplementation that could interfere with the thyroid function. Check transthoracic echo (4) Hyponatremia: Plan: Serum sodium level 129 in the ED Patient appears slightly dehydrated . Monitor I's and O's closely Check urine studies including urine sodium and osmolality Recheck sodium level in a.m. (5) Malignant neoplasm of lower-outer quadrant of left breast of female, estrogen receptor positive: Plan: Patient diagnosed with invasive ductal breast cancer presently on Kadcyla and anastrozole Zoladex combination chemotherapy regimen Patient reported to be ER/[place] and HER2 positive Followed by Dr. lyn and presently on chemotherapy regimen. Obtain oncology input (6) Hypothyroidism: Plan: Patient with history of Jagjit thyroiditis and being treated with levothyroxine and Cytomel for thyroid replacement. Patient also takes awsl-usi-rhwvptn supplement thyronine -and these could interfere with the thyroid studies check TSH level and free T4 level to see if this plays a role in patient's presenting symptoms. Admission and Anticipated Discharge Date Admission Date: January 10, 2023 History of Present Illness Chief Complaint: Patient presents to ED with complaints of palpitations Primary Care Provider: Meghann Fraire, This is a 47-year-old female with past medical history significant history of invasive ductal breast cancer on active chemotherapy regimen with anastrozole and Zoladex, hypothyroidism on thyroid replacement therapy, DVT of right subclavian vein treated with a 6-month course of Eliquis who presents to the emergency department with complaints of intermittent palpitation over the past 2 days. Patient reports that she was able to feel better heart rate was elevated over the past 2 days but she denies any chest pain or shortness of breath. Patient reports that she had experienced episodes of palpitations during her chemotherapy regimen over the past 2 years intermittently but this episode patient feels has been more sustained and hence patient became concerned and presents to ED for further evaluation. Patient otherwise denies any fevers but reports possible chills few days ago. Patient has a Mediport for access for chemotherapy regimen. Patient has a prior history of DVT of right subclavian vein treated with a course of Eliquis for 6 months and this has been discontinued. Patient has seen her oncologist Dr Lyn about 2 weeks ago. Patient evaluated in ED and noted labs indicate that her white count was not elevated, sodium level is 128 and a lactate level was elevated at 3.1. Patient also found to have elevated transaminases with AST being 291 and ALT being 171 and alk phos was elevated at 538 Given the elevated lactic acid level patient was started on IV fluids and has been admitted for further management given underlying immunocompromise state as patient is on active chemotherapy. Patient was given a dose of IV vancomycin and Zosyn in the ED for empiric coverage Allergies Allergy/AdvReac Type Severity Reaction Status Date / Time animal dander Allergy Intermediate NASAL Verified 01/09/23 22:50 CONGESTION house dust AdvReac Intermediate NASAL Verified 01/09/23 22:50 CONGESTION Home Medications Medication Instructions Recorded Confirmed Type venlafaxine 150 mg 150 mg PO QAM 02/06/19 01/09/23 History capsule,extended release 24 hr albuterol sulfate 90 mcg/actuation 2 puffs inhalation Q4H PRN 02/08/20 01/09/23 Rx aerosol inhaler shortness of breath or wheezing #1 g cholecalciferol (vitamin D3) 125 5,000 units PO DAILY 02/08/20 01/09/23 History mcg (5,000 unit) tablet meloxicam 15 mg tablet 15 mg PO DAILY PRN pain #30 tabs 02/08/20 01/09/23 Rx AMINO ACID SUPREME 1 tab PO QAM 12/29/20 01/09/23 History YOLANDE MAG 1 tab PO QAM 12/29/20 01/09/23 History PROBIOTIC SUPREME 1 tab PO QAM 12/29/20 01/09/23 History THYROMIN 1 tab PO QAM 12/29/20 01/09/23 History cetirizine 10 mg tablet 10 mg PO DAILY 12/29/20 01/09/23 History sertraline 50 mg tablet 75 mg PO QAM 11/07/21 01/09/23 History medical marijuana 1 dose inhalation DIRECTED PRN 03/19/22 01/09/23 History NEEDED mkpietjhom-tyowpaqzyiyxx-jbiriusd 1 tab PO Q4H PRN migraine headache 04/24/22 01/09/23 History 50 mg-325 mg-40 mg tablet loratadine 10 mg tablet (Claritin) 10 mg PO DAILY 04/24/22 01/09/23 History pantoprazole 40 mg tablet,delayed 40 mg PO DAILY 04/24/22 01/09/23 History release anastrozole 1 mg tablet 1 mg PO DAILY 10/05/22 01/09/23 History multivitamin 1 tab PO DAILY 10/05/22 01/09/23 History ondansetron HCl 8 mg tablet 8 mg PO Q8H PRN NAUSEA/VOMITING 10/05/22 01/09/23 History prochlorperazine maleate 10 mg 10 mg PO Q6H PRN NAUSEA/VOMITING 10/05/22 01/09/23 History tablet (Compazine) sennosides 8.6 mg tablet (Senokot) 8.6 mg PO DAILY 10/05/22 01/09/23 History levothyroxine 100 mcg tablet 100 mcg PO DAILY #30 tabs 12/19/22 01/09/23 Rx liothyronine 5 mcg tablet 5 mcg PO QAM #90 tabs 01/08/23 01/09/23 Rx goserelin 3.6 mg subcutaneous 0 mg subcut MONTHLY 01/09/23 01/09/23 History implant (Zoladex) Past Med/Surg History Medical History Allergic rhinitis TAMERA positive mixed connective disorder Arthritis Depression, major DVT (deep venous thrombosis) Right subclavian 11/2021 Dysmetabolic syndrome X GERD without esophagitis Jagjit's thyroiditis Hiatal hernia Hypercholesterolemia Hyperlipidemia Hypothyroidism Irregular menstrual cycle Low back pain Migraine headache Multilevel degenerative disc disease Psoriasis Raynaud's disease Reactive airway disease Tinnitus Surgical History H/O bilateral mastectomy (04/03/22) w/ reconstruction H/O dilation and curettage 2010 History of History of eye surgery History of wisdom tooth extraction Port-A-Cath in place (11/20/21) Port placement with fluoroscopy. Dr. Hebert 11/20/2021 Family History Mother Hypertension Dyslipidemia Grandfather Cancer Colorectal cancer Grandfather (Maternal) Myocardial infarction Prostate cancer Heart disease Stroke Father Hypertension Grandfather (Paternal) Pancreatic cancer Other Environmental allergies No family history of adverse response to anesthesia No family history of bleeding disorder Denies family history of Ovarian cancer Breast cancer Social History Smoking Status: Never smoker Second Hand Exposure: No; Do You Dip or Chew Tobacco: No; Hx Alcohol Use: No (no alcohol for year and a half) Hx Substance Use: No Preferred Language: [place] Communication Ability: Effective Visual Impairment: No Limitations Hearing Ability: Normal Stock Or Delivery Clerk Required: No Beliefs That Will Affect Care: None marital status: Current Living Situation: Spouse current occupational status: employed 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 No wheezing Cardiac-patient reports palpitations, no chest pain, GI-no nausea, vomiting, diarrhea, -no urinary retention, no urinary incontinence, Musculoskeletal-no joint pain, no muscle tenderness Skin-no bruising, no rashes, no pruritus Neuro-no isolated weakness, Physical Exam Physical Exam: Head and ENT no thyroid enlargement trachea midline Cardiovascular S1-S2 are normal no S3 Lungs bilateral air entry fair no wheezing Abdomen soft nondistended positive bowel sounds no rebound tenderness Extremity shows trace edema Neurologically no focal deficits Skin shows no rash no cyanosis Results & Data Results & Data Vital Signs (Past 12 Hours) Vital Signs Temp Pulse Pulse Resp BP BP Pulse Ox 01/10/23 03:30 86 01/10/23 03:39 36.4 C L 90 18 90/67 L 96 01/10/23 02:30 84 19 95 01/10/23 02:00 89 22 90/61 L 96 01/10/23 01:57 87 01/10/23 01:30 89 24 94 01/10/23 01:00 92 H 18 91/61 L 94 01/10/23 00:55 96 01/10/23 00:30 98 H 23 94 01/10/23 00:00 107 H 14 106/66 94 01/09/23 23:00 119 H 17 112/73 93 01/09/23 23:57 108 H 24 103/67 94 01/09/23 21:59 131 H 01/09/23 21:44 37.0 C 137 H 20 110/72 97 O2 Del Method 01/10/23 03:30 01/10/23 03:39 Room Air 01/10/23 02:30 Room Air 01/10/23 02:00 Room Air 01/10/23 01:57 01/10/23 01:30 01/10/23 01:00 Room Air 01/10/23 00:55 Room Air 01/10/23 00:30 Room Air 01/10/23 00:00 Room Air 01/09/23 23:00 Room Air 01/09/23 23:57 Room Air 01/09/23 21:59 01/09/23 21:44 Room Air Laboratory Results Short CBC 01/09/23 Range/Units 22:24 WBC 7.06 (4.8-10.8) K/ul Hgb 12.0 (12.0-16.0) g/dl Hct 34.7 L (37.0-47.0) % Plt Count 72 L (130-400) K/uL BMP 01/09/23 22:24 Sodium 128 L Potassium 3.7 Chloride 93 L Carbon Dioxide 26 BUN 12 Creatinine 0.79 Glucose 126 H Calcium 8.4 L Liver Function 01/09/23 Range/Units 22:24 Total Bilirubin 0.6 (0.2-1.0) mg/dl AST 291 H (13-39) U/L ALT 171 H (7-52) U/L Alkaline Phosphatase 538 H (34-104) U/L Albumin 3.5 (3.4-5.0) gm/dl Urine 01/10/23 Range/Units 00:50 Urine Color Yellow Urine Appearance Clear (Clear) Urine pH 7.5 (4.5-7.5) Ur Specific [place] > 1.045 H (1.000-1.030) Urine Protein 2+ H (Negative) Urine Glucose (UA) Negative (Negative) Diagnostic Findings Chest CTA 01/09/23 21:59 Exam(s): CTA CHEST IV Amt: 112 ml optiray 320 EXAM: CT Angiography Chest With Intravenous Contrast CLINICAL HISTORY: Reason for exam: Tachy, Hx Breast Ca. TECHNIQUE: Axial computed tomographic angiography images of the chest with intravenous contrast. CTDI is 15.8 mGy and DLP is 502.2 mGy-cm. Automated exposure control was utilized for the study. A dose lowering technique was utilized adhering to the principles of ALARA. MIP reconstructed images were created and reviewed. COMPARISON: No relevant prior studies available. FINDINGS: Pulmonary arteries: Unremarkable. No pulmonary embolism. Aorta: No acute findings. No thoracic aortic aneurysm. Lungs: There is mild to moderate peribronchial thickening of the central and peripheral bronchi. No mass. No consolidation. Pleural space: Unremarkable. No significant effusion. No pneumothorax. Heart: Unremarkable. No cardiomegaly. No significant pericardial effusion. No evidence of RV dysfunction. Bones/joints: No acute fracture. No dislocation. Soft tissues: Splenomegaly. Hepatic steatosis. Status post left mastectomy with expected postsurgical changes. There is a right subclavian approach Port-A-Cath in the right chest wall. Lymph nodes: Prominent mediastinal and hilar left nodes. IMPRESSION: No evidence of pulmonary emboli. Findings concerning for bronchitis, which may be of infectious or inflammatory etiologies. Prominent mediastinal and hilar left nodes. No consolidation. Splenomegaly. Hepatic steatosis. Status post left mastectomy with expected postsurgical changes. Electronically signed by: Dari Hernandez MD 01/10/23 00:15 AM Abdomen/Pelvis CT 01/09/23 23:21 Exam(s): CT ABDOMEN + PELVIS With Contrast IV Amt: 112 ml optiray 320 EXAM: CT Abdomen and Pelvis With Intravenous Contrast CLINICAL HISTORY: Reason for exam: Sepsis, cancer pt, elevated lft's. TECHNIQUE: Axial computed tomography images of the abdomen and pelvis with intravenous contrast. CTDI is 10.75 mGy and DLP is 529.73 mGy-cm. Automated exposure control was utilized for the study. A dose lowering technique was utilized adhering to the principles of ALARA. CONTRAST: Patient received 112 ml optiray 320 of IV contrast COMPARISON: Comparison made to prior CT scan of abdomen pelvis from November 16, 2021. FINDINGS: Lung bases: Unremarkable. No mass. No consolidation. ABDOMEN: Liver: Hepatic steatosis. No mass. Gallbladder and bile ducts: Unremarkable. No calcified stones. No ductal dilation. Pancreas: Unremarkable. No mass. No ductal dilation. Spleen: Splenomegaly. Adrenals: Unremarkable. No mass. Kidneys and ureters: Unremarkable. No solid mass. No hydronephrosis. Stomach and bowel: There is thickening and edema of the gastric antrum. PELVIS: Appendix: No findings to suggest acute appendicitis. Bladder: Unremarkable. No mass. Reproductive: Unremarkable as visualized. ABDOMEN and PELVIS: Intraperitoneal space: Unremarkable. No free air. No significant fluid collection. Bones/joints: There is a single sclerotic lesion within the L1 vertebral body. No acute fracture. No dislocation. Soft tissues: Unremarkable. Vasculature: Unremarkable. No abdominal aortic aneurysm. Lymph nodes: Unremarkable. No enlarged lymph nodes. IMPRESSION: Findings concerning for gastritis. Splenomegaly. Hepatic steatosis. Electronically signed by: Dari Hernandez MD 01/10/23 00:20 AM Code Status & VTE Plan VTE Prophylaxis Plan VTE Prophylaxis will be ordered: Yes PG Care Time/CCT Total # of Minutes Spent Total Time Spent with Patient: Total time spent is greater than 50% in coordination of care (as documented) at patient's floor/unit and/or counseling patient: Coding Level of Care Code 77897 INT INP/OBS CARE 2/55MIN Diagnoses Lactic acidosis E87.20 Abnormal LFTs R79.89 Palpitations R00.2 Hyponatremia E87.1 Malignant neoplasm of lower-outer quadrant of left breast of female, estrogen receptor positive C50.512; Z17.0 Hypothyroidism E03.9
[2023-01-10] MEDS: CHOLECALCIFEROL 5,000 UNITS 125 MCG TAB PO SCH (08:05)
[2023-01-10] MEDS: VENLAFAXINE HCL XR 150 MG CAPXR PO SCH (08:05)
[2023-01-10] MEDS: SERTRALINE HCL 50 MG TABLET PO SCH (08:05)
[2023-01-10] MEDS: ANASTROZOLE 1 MG TAB PO SCH (08:05)
[2023-01-10] MEDS: MULTIVITAMIN TAB PO SCH (08:06)
[2023-01-10] MEDS: ADVANCED PROBIOTIC 1250 MG CAPSULE PO SCH (08:06)
[2023-01-10] MEDS: SENNA 8.6 MG TAB PO SCH (08:06)
[2023-01-10] MEDS: HEPARIN SOD 5,000 UNIT/0.5 ML VIAL SQ SCH ×2 (08:06→19:57)
--- NOTE | 2023-01-10 08:13 | Hospitalist Progress Note ---
Date of Service January 10, 2023 Assessment & Plan (1) Lactic acidosis: Plan: Patient presents to ED with complaints of sustained palpitations has been present over the past 2 days. Cardiac evaluation is without recommendation for invasive or increased risk assessment testing Patient also found to have elevated lactic acid of 3.1 in the ED. Presently on chemotherapy regimen for invasive ductal breast cancer patient is immunosuppressed Has transaminitis without elevation of bilirubin, this can be a reaction to Kadcyla chemotherapy for breast cancer also worsened by likely sepsis and bacteremia Regarding her sepsis and bacteremia preliminarily is a gram-positive organism antibiotics streamlined to vancomycin therapy will gain additional cultures on January 11 and have her Mediport removed based upon cultures and sensitivity we may involve infectious disease versus if a fairly easily sensitive organism coordinate intravenous and outpatient antibiotic regimens (2) Palpitations: Plan: Patient presents with complaints of palpitations over the past 2 days Initial high sensitive troponin 25.7. No acute ST changes reported in ED echocardiography is without remark Patient also presently on levothyroxine and Cytomel for thyroid supplementation. Check TSH level Patient also takes thyronine that is [id number] thyroid supplementation that could interfere with the thyroid function. tsh in the ER is within normal range (3) Hyponatremia: Plan: Resolved (4) Malignant neoplasm of lower-outer quadrant of left breast of female, estrogen receptor positive: Plan: Patient diagnosed with invasive ductal breast cancer presently on Kadcyla and anastrozole Zoladex combination chemotherapy regimen Patient reported to be ER/[place] and HER2 positive Followed by Dr. haynes and presently on chemotherapy (5) Hypothyroidism: Admission and Anticipated Discharge Date Admission Date: January 10, 2023 Subjective Patient feels improved over when she came in she was hydrated and some of her transaminitis might be from her chemotherapeutic medications however we were notified that she had positive blood cultures 1 of 2 for gram-positive organism possibly in the enterococcal family. Transthoracic echocardiogram does not show any valvular abnormalities however this case was discussed with oncology and patient likely will need her Mediport removed at some point during hospital stay Physical Exam Physical Exam: Patient awake alert appropriate no apparent distress. 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 and changes from radiation therapy there is no evidence of fluctuance or active infection at this time Results & Data Results & Data Vital Signs (Past 12 Hours) Vital Signs Temp Pulse Pulse Resp BP BP Pulse Ox 01/10/23 08:07 95 H 19 102/67 97 01/10/23 07:37 81 01/10/23 03:30 86 01/10/23 03:39 97.5 F L 90 18 90/67 L 96 01/10/23 02:30 84 19 95 01/10/23 02:00 89 22 90/61 L 96 01/10/23 01:57 87 01/10/23 01:30 89 24 94 01/10/23 01:00 92 H 18 91/61 L 94 01/10/23 00:55 96 01/10/23 00:30 98 H 23 94 01/10/23 00:00 107 H 14 106/66 94 01/09/23 23:00 119 H 17 112/73 93 01/09/23 23:57 108 H 24 103/67 94 01/09/23 21:59 131 H 01/09/23 21:44 98.6 F 137 H 20 110/72 97 O2 Del Method 01/10/23 08:07 Room Air 01/10/23 07:37 01/10/23 03:30 01/10/23 03:39 Room Air 01/10/23 02:30 Room Air 01/10/23 02:00 Room Air 01/10/23 01:57 01/10/23 01:30 01/10/23 01:00 Room Air 01/10/23 00:55 Room Air 01/10/23 00:30 Room Air 01/10/23 00:00 Room Air 01/09/23 23:00 Room Air 01/09/23 23:57 Room Air 01/09/23 21:59 01/09/23 21:44 Room Air Laboratory Results Reviewed CBC reviewed chemistry reviewed culture results PG Care Time/CCT Total # of Minutes Spent Total Time Spent with Patient: Total time spent is greater than 50% in coordination of care (as documented) at patient's floor/unit and/or counseling patient: Coding Level of Care Code 80012 SUB INP/OBS CARE 2/35MIN Diagnoses Lactic acidosis E87.20 Palpitations R00.2 Hyponatremia E87.1 Malignant neoplasm of lower-outer quadrant of left breast of female, estrogen receptor positive C50.512; Z17.0 Hypothyroidism E03.9
--- NOTE | 2023-01-10 08:32 | Oncology Consultation ---
Date of Consultation January 10, 2023 Assessment & Plan (1) Gram positive sepsis: (2) Malignant neoplasm of lower-outer quadrant of left breast of female, estrogen receptor positive: (3) Abnormal LFTs: Plan Very pleasant female with triple positive breast cancer for which she is current ly on adjuvant therapy with Kadcyla infusions IV every 3 weeks (last received on 12/18/2022), she is also on AI plus ovarian suppression. Presented with palpitations and was found to have gram-positive sepsis/bacteremia (from peripheral blood draw as well as from Mediport) -Agree with broad-spectrum antibiotics pending final blood culture results/sensitivity. -Would recommend considering Mediport removal. Does not need Mediport for treatment purposes as she can receive last 2 treatments of Kadcyla peripherally -She has had elevated LFTs since September,. Discussed abdominal imaging with radiology and is no evidence suggest recurrent disease in the liver or biliary dilatation. Suspect that elevated LFTs most likely multifactorial due to Kadcyla, mild fatty liver disease as well as infection. Would recommend continued monitoring. May consider dose reducing Kadcyla depending on LFTs prior to next treatment Thank you for this consult. Oncology continue following patient while in the hospital. Please feel free to call if you have any further questions History of Present Illness Reason for Consultation: Breast cancer on chemo regimen Attending Physician: Ricardo Moya MD History of Present Illness Ms. Moffett is a pleasant 47-year-old female with history of stage Ib triple positive left breast cancer for which she is s/p neoadjuvant systemic therapy with TCHP completed on 03/09/2022 followed by bilateral mastectomy with reconstruction on 04/03/2022 with pathology revealing residual disease. She was subsequently started on adjuvant Kadcyla on 04/20/2022 which she remains on at this time. She last received Kadcyla on 12/18/2022. She is also on ovarian suppression with monthly goserelin in combination with daily anastrozole. 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 yesterday after presenting with progressively worsening palpitations. Labs obtained in the ED revealed elevated lactic acid level of 3.1, she was also noted to have transaminitis with ALT of 171, AST of 291 and alkaline phosphatase of 538. CTA chest revealed no evidence of PE but was concerning for bronchitis possibly infectious/inflammatory as well as prominent mediastinal and hilar lymph nodes. CT abdomen and pelvis was concerning for gastritis and also revealed hepatic steatosis with mild splenomegaly. Blood cultures from [facility] revealed gram- positive cocci in chains for which identification and sensitivities are pending. 2D echocardiogram obtained today revealed stable ejection fraction of 55 to 60%, mild concentric LVH, mild mitral regurgitation.She is currently on IV vancomycin States that she is doing a lot better with improvement in palpitations. Complains of mild fatigue but otherwise feels well. Denies fever, chills, weight loss or any other issues Allergies Allergy/AdvReac Type Severity Reaction Status Date / Time animal dander Allergy Intermediate NASAL Verified 01/09/23 22:50 CONGESTION house dust AdvReac Intermediate NASAL Verified 01/09/23 22:50 CONGESTION Home Medications Medication Instructions Recorded Confirmed Type venlafaxine 150 mg 150 mg PO QAM 02/06/19 01/09/23 History capsule,extended release 24 hr albuterol sulfate 90 mcg/actuation 2 puffs inhalation Q4H PRN 02/08/20 01/09/23 Rx aerosol inhaler shortness of breath or wheezing #1 g cholecalciferol (vitamin D3) 125 5,000 units PO DAILY 02/08/20 01/09/23 History mcg (5,000 unit) tablet meloxicam 15 mg tablet 15 mg PO DAILY PRN pain #30 tabs 02/08/20 01/09/23 Rx AMINO ACID SUPREME 1 tab PO QAM 12/29/20 01/09/23 History YOLANDE MAG 1 tab PO QAM 12/29/20 01/09/23 History PROBIOTIC SUPREME 1 tab PO QAM 12/29/20 01/09/23 History THYROMIN 1 tab PO QAM 12/29/20 01/09/23 History cetirizine 10 mg tablet 10 mg PO DAILY 12/29/20 01/09/23 History sertraline 50 mg tablet 75 mg PO QAM 11/07/21 01/09/23 History medical marijuana 1 dose inhalation DIRECTED PRN 03/19/22 01/09/23 History NEEDED shsubjmygy-hwmnciiriaelz-mkbdephm 1 tab PO Q4H PRN migraine headache 04/24/22 01/09/23 History 50 mg-325 mg-40 mg tablet loratadine 10 mg tablet (Claritin) 10 mg PO DAILY 04/24/22 01/09/23 History pantoprazole 40 mg tablet,delayed 40 mg PO DAILY 04/24/22 01/09/23 History release anastrozole 1 mg tablet 1 mg PO DAILY 10/05/22 01/09/23 History multivitamin 1 tab PO DAILY 10/05/22 01/09/23 History ondansetron HCl 8 mg tablet 8 mg PO Q8H PRN NAUSEA/VOMITING 10/05/22 01/09/23 History prochlorperazine maleate 10 mg 10 mg PO Q6H PRN NAUSEA/VOMITING 10/05/22 01/09/23 History tablet (Compazine) sennosides 8.6 mg tablet (Senokot) 8.6 mg PO DAILY 10/05/22 01/09/23 History levothyroxine 100 mcg tablet 100 mcg PO DAILY #30 tabs 12/19/22 01/09/23 Rx liothyronine 5 mcg tablet 5 mcg PO QAM #90 tabs 01/08/23 01/09/23 Rx goserelin 3.6 mg subcutaneous 0 mg subcut MONTHLY 01/09/23 01/09/23 History implant (Zoladex) Patient History Medical History Allergic rhinitis TAMERA positive mixed connective disorder Arthritis Depression, major DVT (deep venous thrombosis) Right subclavian 11/2021 Dysmetabolic syndrome X GERD without esophagitis Jagjit's thyroiditis Hiatal hernia Hypercholesterolemia Hyperlipidemia Hypothyroidism Irregular menstrual cycle Low back pain Migraine headache Multilevel degenerative disc disease Psoriasis Raynaud's disease Reactive airway disease Tinnitus Surgical History H/O bilateral mastectomy (04/03/22) w/ reconstruction H/O dilation and curettage 2010 History of History of eye surgery History of wisdom tooth extraction Port-A-Cath in place (11/20/21) Port placement with fluoroscopy. Dr. Hebert 11/20/2021 Family History Mother Hypertension Dyslipidemia Grandfather Cancer Colorectal cancer Grandfather (Maternal) Myocardial infarction Prostate cancer Heart disease Stroke Father Hypertension Grandfather (Paternal) Pancreatic cancer Other Environmental allergies No family history of adverse response to anesthesia No family history of bleeding disorder Denies family history of Ovarian cancer Breast cancer Social History Smoking Status: Never smoker Second Hand Exposure: No; Do You Dip or Chew Tobacco: No; Hx Alcohol Use: No (no alcohol for year and a half) Hx Substance Use: No Preferred Language: Slovak Communication Ability: Effective Visual Impairment: No Limitations Hearing Ability: Normal Superintendent Pipelines Required: No Beliefs That Will Affect Care: None marital status: Current Living Situation: Spouse current occupational status: employed 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/[employer] How many Children do You have: 4 Feels Safe at Home: Yes Childhood Exposure to Second-Hand Smoke: Yes Diet Comment: paleo diet caffeine: Yes during the past year weight has: remained stable Dental Care, Regularly: Yes Physical Activity Frequency: Daily Seatbelt Use: always Sunscreen Use: Yes Assistive Devices: Glasses Results & Data Vital Signs (Past 12 Hours) Vital Signs Temp Pulse Pulse Resp BP BP Pulse Ox 01/10/23 08:07 95 H 19 102/67 97 01/10/23 07:37 81 01/10/23 03:30 86 01/10/23 03:39 36.4 C L 90 18 90/67 L 96 01/10/23 02:30 84 19 95 01/10/23 02:00 89 22 90/61 L 96 01/10/23 01:57 87 01/10/23 01:30 89 24 94 01/10/23 01:00 92 H 18 91/61 L 94 01/10/23 00:55 96 01/10/23 00:30 98 H 23 94 01/10/23 00:00 107 H 14 106/66 94 01/09/23 23:00 119 H 17 112/73 93 01/09/23 23:57 108 H 24 103/67 94 01/09/23 21:59 131 H 01/09/23 21:44 37.0 C 137 H 20 110/72 97 O2 Del Method 01/10/23 08:07 Room Air 01/10/23 07:37 01/10/23 03:30 01/10/23 03:39 Room Air 01/10/23 02:30 Room Air 01/10/23 02:00 Room Air 01/10/23 01:57 01/10/23 01:30 01/10/23 01:00 Room Air 01/10/23 00:55 Room Air 01/10/23 00:30 Room Air 01/10/23 00:00 Room Air 01/09/23 23:00 Room Air 01/09/23 23:57 Room Air 01/09/23 21:59 01/09/23 21:44 Room Air
--- NOTE | 2023-01-10 08:56 | Electrocardiogram Report ---
Test Reason : Blood Pressure : / mmHG Vent. Rate : 134 BPM Atrial Rate : 134 BPM P-R Int : 124 ms QRS Dur : 066 ms QT Int : 280 ms P-R-T Axes : 045 066 045 degrees QTc Int : 418 ms Sinus tachycardia Nonspecific ST and T wave abnormality Anterior leads Abnormal ECG No previous ECGs available Confirmed by Werner Tolentino ([id number]) on 01/10/2023 8:56:18 AM Referred By: REFERRED SELF Confirmed By:Werner Tolentino
[2023-01-10] MEDS ORDERED: LIOTHYRONINE SODIUM 5 MCG TAB PO SCH (09:00)
[2023-01-10 09:36] LABS: Albumin Globulin Ratio 0.9 (0.9-2); BUN Creatinine Ratio 10.3 (10-20); Bilirubin,Total 0.5 mg/dl (0.2-1.0); Calcium 8.3 mg/dl (8.6-10.3); Creatinine Clr Calc Pharmacy 79.1 ml/min; Est GFR (African American) 105.7 ml/min; Est GFR (Non-African American) 91.2 ml/min; Globulin 3.5 gm/dl (2.5-4.0); Potassium 3.4 mmol/L (3.5-5.1); Total Protein 6.5 gm/dl (6.0-8.3)
[2023-01-10 09:41] LABS: Troponin I High Sensitivity 12.1 pg/ml (0-14)
[2023-01-10] MEDS: PANTOprazole 40 MG TAB PO SCH (09:43)
[2023-01-10] MEDS: ASPIRIN 81 MG ECTAB PO SCH (09:43)
--- NOTE | 2023-01-10 09:58 | Pharmacy Report ---
Pharmacy PK ABX Note - Date of Service January 10, 2023 - Assessment and Plan Assessment 47 year old F receiving vancomycin and Zosyn empirically. Immunocompromised at baseline, with elevated lactate and tachycardia. Blood cultures pending. Renal function stable. Day # 1 of antimicrobial therapy. Plan Vancomycin * Loading dose: 1250 mg IV x 1 * Maintenance dose: 1000 mg IV every 12 hours * Regimen is predicted to achieve target AUC/MARGA of 400-600 mg/L.hr * Will obtain a level after 48h of therapy if vancomycin continued. Pharmacy will continue to follow and will adjust dose/frequency as necessary. Thank you. Pharmacy has transitioned to AUC monitoring for vancomycin. AUC/MARGA is the preferred PK/PD target and is associated with decreased risk of nephrotoxicity compared to traditional trough targets.
[2023-01-10] MEDS: ACETAMINOPHEN 325 MG TAB PO PRN ×3 (11:54→20:44)
--- NOTE | 2023-01-10 12:15 | Cardiology Consultation ---
Date of Consultation January 10, 2023 Assessment & Plan (1) Palpitations: (2) Sinus tachycardia: (3) Elevated troponin: (4) Lactic acidosis: (5) Malignant neoplasm of lower-outer quadrant of left breast of female, estrogen receptor positive: Plan 47-year-old woman with history of breast carcinoma undergoing chemotherapy with Kadcyla (ado-trastuzumab emtansine), which can cause reductions in left ventricular systolic function. Her periods of palpitations seem secondary to sinus tachycardia. Gradual resolution of tachycardia weighs against a paroxysmal phenomenon, most likely she had a is having a physiologic response to mild lactic acidosis due to early sepsis syndrome or general inflammatory response related to her medical regimen. Minimal troponin elevation likely demand ischemia secondary to tachycardia with borderline hypotension in patient receiving a medication that presumably could increase susceptibility of myocardium to hemodynamic stressors. Prompt troponin return to normal level and the absence of any echocardiographic abnormalities weigh against any major pathologic phenomenon. Would be reluctant to use beta-coy to blunt a physiologic response, but if this were to be a more frequent/bothersome occurrence could try a very low dose therapy (metoprolol succinate 12.5 mg daily). Patient was reassured that her tachycardia is likely a normal response to physiologic stresses and that her cardiac function was very favorable. History of Present Illness Reason for Consultation: palpitations, pt on chemo and elevated trop Requesting Physician: Marvin Louis MD Attending Physician: Ricardo Moya MD History of Present Illness 47-year-old woman with breast cancer for which she is actively receiving chemotherapy, no significant cardiac history, admitted with mild lactic acidosis and concern for sepsis on 01/09/23, noted to have borderline troponin and complained of recent palpitations. She does note a history of tachycardia from time to time related to transient hyperthyroidism from Jagjit's disease but does not appear to have a formal diagnosis of any dysrhythmia. Over the past 2 days she noted 2 separate episodes of tachypalpitations, both of which occurred in the context of feeling a "chill" and generalized fatigue. She had some fullness or anxiety type sensation associated with the palpitations but did not experience any chest discomfort temporally from the palpitations. ECG on admission yesterday showed sinus tachycardia at 134 bpm with nonspecific anterior ST-T wave abnormalities. No prior study for comparison. Initial troponin 25.7, repeat 12.1. Echocardiogram showed mild LVH with normal wall motion and systolic function, mild mitral regurgitation. Compared with 12/04/2022 study, no significant change. Telemetry showed sinus tachycardia 130 bpm range initially, decreasing gradually to the current 90-100 bpm range. No significant ectopy and no paroxysmal dysrhythmias. At recent baseline as well as during the day today, she notes that she can walk about with no chest discomfort or dyspnea. At the time of my evaluation, she had no somatic complaints. Allergies Allergy/AdvReac Type Severity Reaction Status Date / Time animal dander Allergy Intermediate NASAL Verified 01/09/23 22:50 CONGESTION house dust AdvReac Intermediate NASAL Verified 01/09/23 22:50 CONGESTION Home Medications Medication Instructions Recorded Confirmed Type venlafaxine 150 mg 150 mg PO QAM 02/06/19 01/09/23 History capsule,extended release 24 hr albuterol sulfate 90 mcg/actuation 2 puffs inhalation Q4H PRN 02/08/20 01/09/23 Rx aerosol inhaler shortness of breath or wheezing #1 g cholecalciferol (vitamin D3) 125 5,000 units PO DAILY 02/08/20 01/09/23 History mcg (5,000 unit) tablet meloxicam 15 mg tablet 15 mg PO DAILY PRN pain #30 tabs 02/08/20 01/09/23 Rx AMINO ACID SUPREME 1 tab PO QAM 12/29/20 01/09/23 History YOLANDE MAG 1 tab PO QAM 12/29/20 01/09/23 History PROBIOTIC SUPREME 1 tab PO QAM 12/29/20 01/09/23 History THYROMIN 1 tab PO QAM 12/29/20 01/09/23 History cetirizine 10 mg tablet 10 mg PO DAILY 12/29/20 01/09/23 History sertraline 50 mg tablet 75 mg PO QAM 11/07/21 01/09/23 History medical marijuana 1 dose inhalation DIRECTED PRN 03/19/22 01/09/23 History NEEDED ihjcvzdkse-imvhdlksqutso-bhitozrc 1 tab PO Q4H PRN migraine headache 04/24/22 01/09/23 History 50 mg-325 mg-40 mg tablet loratadine 10 mg tablet (Claritin) 10 mg PO DAILY 04/24/22 01/09/23 History pantoprazole 40 mg tablet,delayed 40 mg PO DAILY 04/24/22 01/09/23 History release anastrozole 1 mg tablet 1 mg PO DAILY 10/05/22 01/09/23 History multivitamin 1 tab PO DAILY 10/05/22 01/09/23 History ondansetron HCl 8 mg tablet 8 mg PO Q8H PRN NAUSEA/VOMITING 10/05/22 01/09/23 History prochlorperazine maleate 10 mg 10 mg PO Q6H PRN NAUSEA/VOMITING 10/05/22 0 01/09/23 History tablet (Compazine) sennosides 8.6 mg tablet (Senokot) 8.6 mg PO DAILY 10/05/22 01/09/23 History levothyroxine 100 mcg tablet 100 mcg PO DAILY #30 tabs 12/19/22 01/09/23 Rx liothyronine 5 mcg tablet 5 mcg PO QAM #90 tabs 01/08/23 01/09/23 Rx goserelin 3.6 mg subcutaneous 0 mg subcut MONTHLY 01/09/23 01/09/23 History implant (Zoladex) Patient History Medical History Allergic rhinitis TAMERA positive mixed connective disorder Arthritis Depression, major DVT (deep venous thrombosis) Right subclavian 11/2021 Dysmetabolic syndrome X GERD without esophagitis Jagjit's thyroiditis Hiatal hernia Hypercholesterolemia Hyperlipidemia Hypothyroidism Irregular menstrual cycle Low back pain Migraine headache Multilevel degenerative disc disease Psoriasis Raynaud's disease Reactive airway disease Tinnitus Surgical History H/O bilateral mastectomy (04/03/22) w/ reconstruction H/O dilation and curettage 2010 History of History of eye surgery History of wisdom tooth extraction Port-A-Cath in place (11/20/21) Port placement with fluoroscopy. Dr. Hebert 11/20/2021 Family History Mother Hypertension Dyslipidemia Grandfather Cancer Colorectal cancer Grandfather (Maternal) Myocardial infarction Prostate cancer Heart disease Stroke Father Hypertension Grandfather (Paternal) Pancreatic cancer Other Environmental allergies No family history of adverse response to anesthesia No family history of bleeding disorder Denies family history of Ovarian cancer Breast cancer Social History Smoking Status: Never smoker Second Hand Exposure: No; Do You Dip or Chew Tobacco: No; Hx Alcohol Use: No (no alcohol for year and a half) Hx Substance Use: No Preferred Language: Yakut Communication Ability: Effective Visual Impairment: No Limitations Hearing Ability: Normal 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 Beliefs That Will Affect Care: None marital status: Current Living Situation: Spouse current occupational status: employed 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 BP normotensive. Pulse 108 bpm and regular. Respirations 20 but unlabored. Skin: no ecchymoses or generalized lesions. HEENT: unremarkable. Neck: JVP at the clavicle at 90 degrees, no carotid bruits. Chest wall: Xtuwho-y-Dies right subclavian region. Lungs: clear. Cardiac: regular rhythm, normal S1-2, no murmur. Abdomen: benign. Extremities: no edema, pulses intact. Neurologic: normal affect and conversation, nonfocal. Results & Data Laboratory Results Potassium 3.4, BUN 8, creatinine 0.78. Magnesium not measured. Normal WBC and hemoglobin, platelet count 72,000. TSH 1.052 with free T4 1.38. PG Care Time/CCT Total # of Minutes Spent Total Time Spent with Patient: Total time spent is greater than 50% in coordination of care (as documented) at patient's floor/unit and/or counseling patient: Coding Level of Care Code 53626 IN/OBS CONSULT LVL 3,45M Diagnoses Palpitations R00.2 Sinus tachycardia R00.0 Elevated troponin R77.8 Lactic acidosis E87.20 Malignant neoplasm of lower-outer quadrant of left breast of female, estrogen receptor positive C50.512; Z17.0
--- NOTE | 2023-01-10 13:46 | XCELERA ---
[id number]
[2023-01-10 14:05] LABS: A calco-baum cmplx NotReported Not Detected (NotDetected); Bact fragilis Not Reported Not Detected (NotDetected); C auris Not Reported Not Detected (NotDetected); Calbicans Not Reported Not Detected (NotDetected); Candida glabrata Not Reported Not Detected (NotDetected); Candida krusei Not Reported Not Detected (NotDetected); Cneoformans/gatti Not Reported Not Detected (NotDetected); Cparapsilosis Not Reported Not Detected (NotDetected); Ctropicalis Not Reported Not Detected (NotDetected); E cloacae compx Not Reported Not Detected (NotDetected); Efaecalis Not Reported Not Detected (NotDetected); Efaecium Not Reported Not Detected (NotDetected); Enterobacterales Not Reported Not Detected (NotDetected); Escherichia coli Not Reported Not Detected (NotDetected); H influenzae Not Reported Not Detected (NotDetected); K aerogenes Not Reported Not Detected (NotDetected); Koxytoca Not Reported Not Detected (NotDetected); Kpneumoniae grp Not Reported Not Detected (NotDetected); Lmonocyt Not Reported Not Detected (NotDetected); N meningitidis Not Reported Not Detected (NotDetected); P aeruginosa Not Reported Not Detected (NotDetected); Proteus spp Not Reported Not Detected (NotDetected); Salmonella spp Not Reported Not Detected (NotDetected); Smarcescens Not Reported Not Detected (NotDetected); Staph lugdunensis Not Reported Not Detected (NotDetected); Staph spp. Not Reported Not Detected (NotDetected); Staphaureus Not Reported Not Detected (NotDetected); Staphepi Not Reported Not Detected (NotDetected); Stenmaltophilia Not Reported Not Detected (NotDetected); Strep agal(GrpB) Not Reported Not Detected (NotDetected); Strep pneum Not Reported Not Detected (NotDetected); Strep pyog (GrpA) Not Reported Not Detected (NotDetected); Strep spp Not Reported DETECTED (NotDetected)
[2023-01-10 14:13] LABS: Streptococcus spp DETECTED (NotDetected)
[2023-01-10] MEDS ORDERED: POTASSIUM CHLORIDE CRTAB 20 MEQ TABCR PO STA (18:14)
[2023-01-11] MEDS: ACETAMINOPHEN 325 MG TAB PO PRN ×3 (00:59→17:37)
[2023-01-11] MEDS: LIOTHYRONINE SODIUM 5 MCG TAB PO SCH (05:02)
[2023-01-11] MEDS: LEVOTHYROXINE SODIUM 100 MCG TABLET PO SCH (05:02)
[2023-01-11] MEDS: VANCOMYCIN HCL 1,000 MG in SODIUM CHLORIDE 0.9% 250 ML IV SCH (05:03)
[2023-01-11 07:22] LABS: Hematocrit (blood only) 33.3 % (37.0-47.0); Hemoglobin 11.4 g/dl (12.0-16.0); Mean Corpuscular Hemoglobin 29.1 pg (25.0-34.0); Mean Corpuscular Hgb Conc 34.2 g/dL (32.0-36.0); Mean Corpuscular Volume 84.9 fL (80.0-100.0); Mean Platelet Volume 9.8 fL (9.4-12.4); Platelet Count 80 K/uL (130-400); RDW Standard Deviation 46.1 fL (36.4-46.3); Red Blood Count 3.92 M/uL (4.20-5.40); White Blood Count 6.32 K/ul (4.8-10.8)
[2023-01-11 07:40] LABS: Albumin Globulin Ratio 0.8 (0.9-2); Albumin Level 3.1 gm/dl (3.4-5.0); BUN Creatinine Ratio 8.2 (10-20); Bilirubin,Total 0.6 mg/dl (0.2-1.0); C Reactive Protein 15.51 mg/dl (0-0.5); Calcium 8.5 mg/dl (8.6-10.3); Creatinine Clr Calc Pharmacy 101.5 ml/min; Est GFR (Non-African American) 108.7 ml/min; Globulin 3.8 gm/dl (2.5-4.0); Potassium 3.4 mmol/L (3.5-5.1); Total Protein 6.9 gm/dl (6.0-8.3)
[2023-01-11] MEDS: ANASTROZOLE 1 MG TAB PO SCH (08:34)
[2023-01-11] MEDS: ASPIRIN 81 MG ECTAB PO SCH (08:34)
[2023-01-11] MEDS: HEPARIN SOD 5,000 UNIT/0.5 ML VIAL SQ SCH ×2 (08:35→20:02)
[2023-01-11] MEDS: CHOLECALCIFEROL 5,000 UNITS 125 MCG TAB PO SCH (08:35)
[2023-01-11] MEDS: PANTOprazole 40 MG TAB PO SCH (08:36)
[2023-01-11] MEDS: ADVANCED PROBIOTIC 1250 MG CAPSULE PO SCH (08:36)
[2023-01-11] MEDS: MULTIVITAMIN TAB PO SCH (08:36)
[2023-01-11] MEDS: SERTRALINE HCL 50 MG TABLET PO SCH (08:37)
[2023-01-11] MEDS: SENNA 8.6 MG TAB PO SCH (08:37)
[2023-01-11] MEDS: VENLAFAXINE HCL XR 150 MG CAPXR PO SCH (08:38)
[2023-01-11] MEDS: cefTRIAXone SODIUM 2,000 MG in DEXTROSE 5% 50 ML IV SCH (11:14)
--- NOTE | 2023-01-11 12:13 | Cardiology Progress Note ---
Date of Service January 11, 2023 Assessment & Plan (1) Palpitations: (2) Sinus tachycardia: (3) Elevated troponin: (4) Malignant neoplasm of lower-outer quadrant of left breast of female, estrogen receptor positive: (5) Streptococcal bacteremia: Plan As noted in consultation, feel palpitations are secondary to sinus tachycardia, which in turn is likely a response to her bacteremia/sepsis syndrome. No specific treatment, would avoid beta-blockers in the context of physiologic heart rate response to inflammatory stress. Will sign off, please contact if additional cardiac issues arise. Thank you. Admission and Anticipated Discharge Date Admission Date: January 10, 2023 Subjective Uneventful night. Does have gram-positive bacteremia. Denies any chest pain, dyspnea, recurrence of palpitations. Rhythm remains sinus/mild sinus tachycardia (range 90-120 bpm). Physical Exam Physical Exam: No distress. BP mildly hypotensive (99/67 mmHg currently). Pulse 92 bpm and regular. Respirations 18 and unlabored. Skin: no ecchymoses or generalized lesions. HEENT: unremarkable. Neck: JVP at the clavicle at 90 degrees, no carotid bruits. Chest wall: Ekgbat-j-Asze right subclavian region. Lungs: clear. Cardiac: regular rhythm, normal S1-2, no murmur. Abdomen: benign. Extremities: no edema, pulses intact. Neurologic: normal affect and conversation, nonfocal. Results & Data Vital Signs (Past 12 Hours) Vital Signs Temp Pulse Resp BP Pulse Ox O2 Del Method 01/11/23 11:12 98.6 F 92 H 18 99/67 L 95 Room Air 01/11/23 08:10 100.1 F H 18 108/68 96 Room Air 01/11/23 04:05 98.4 F 96 H 20 104/69 96 Room Air Laboratory Results Group B beta-hemolytic strep growing from 1 blood culture. Sodium 136, potassium 3.4, BUN 5, creatinine 0.61. PG Care Time/CCT Total # of Minutes Spent Total Time Spent with Patient: Total time spent is greater than 50% in coordination of care (as documented) at patient's floor/unit and/or counseling patient: Coding Level of Care Code 05846 SUB INP/OBS CARE 1/25MIN Diagnoses Palpitations R00.2 Sinus tachycardia R00.0 Elevated troponin R77.8 Malignant neoplasm of lower-outer quadrant of left breast of female, estrogen receptor positive C50.512; Z17.0 Streptococcal bacteremia R78.81; B95.5
--- NOTE | 2023-01-11 13:22 | Surgery Consultation ---
Date of Consultation January 11, 2023 Assessment & Plan (1) Streptococcal bacteremia: This is a 47yF with a PMH of bilateral breast mastectomy 03/2022 on chemotherapy since 04/2022, hypothyroid, depression, depression, h/o DVT treated for 6mos of eliquis, who presents to the [facility] on 01/09/23 with complaints of palpitations. Upon workup she was found to have + blood cultures for group g beta strep, prompting consultation to us for possible mediport removal. Oncology recommending removal of the port as she only has two chemo treatments left to go, of which she could receive peripherally. Cardiology has signed off patient as sinus tachycardia likely related to her response to bacteremia infection. ID has been consulted for abx guidance moving forward. Today WBC 6, last lactate was normal at 1.5. She had a low grade temp of 100F this AM, otherwise vitals have been stable. We will make patient NPO at midnight and plan on mediport removal in the OR tomorrow with Dr. Hsu given recommendations for removal in the setting of + bacteremia. After ID performed their consultation we were asked to evaluate patient for R breast redness. Patient reports it has been there since she was admitted. She endorses no tenderness in the area. She has a history of seroma's/infection of the L breast resulting multiple I&D's and ultimately removal of the L tissue collar closer lockstitch [address] chest on admission without noted abnormalities of R breast. May consider US for further evaluation. For now recommend ongoing abx per ID. If any fluid collections noted may need to consider aspiration at our breast center and if anything more invasive regarding tissue collar closer lockstitch is needed be referred to her surgeons at [facility]. My attending will evaluate her tomorrow for further recs. History of Present Illness Attending Physician: Ricardo Moya MD History of Present Illness This is a 47yF with a PMH of bilateral breast mastectomy 03/2022 on chemotherapy since 04/2022, hypothyroid, depression, depression, h/o DVT treated for 6mos of eliquis, who presents to the [facility] on 01/09/23 with complaints of palpitations. Upon workup she was found to have + blood cultures for group g beta strep, prompting consultation to us for possible mediport removal. She denies any fevers/chills, CP/SOB, or issues with her port currently. It was placed back in 11/[address] Hebert. She has been seen by both cardiology and oncology in consultation and is now awaiting ID's recommendations for abx guidance going forward. Allergies Allergy/AdvReac Type Severity Reaction Status Date / Time animal dander Allergy Intermediate NASAL Verified 01/09/23 22:50 CONGESTION house dust AdvReac Intermediate NASAL Verified 01/09/23 22:50 CONGESTION Home Medications Medication Instructions Recorded Confirmed Type venlafaxine 150 mg 150 mg PO QAM 02/06/19 01/09/23 History capsule,extended release 24 hr albuterol sulfate 90 mcg/actuation 2 puffs inhalation Q4H PRN 02/08/20 01/09/23 Rx aerosol inhaler shortness of breath or wheezing #1 g cholecalciferol (vitamin D3) 125 5,000 units PO DAILY 02/08/20 01/09/23 History mcg (5,000 unit) tablet meloxicam 15 mg tablet 15 mg PO DAILY PRN pain #30 tabs 02/08/20 01/09/23 Rx AMINO ACID SUPREME 1 tab PO QAM 12/29/20 01/09/23 History YOLANDE MAG 1 tab PO QAM 12/29/20 01/09/23 History PROBIOTIC SUPREME 1 tab PO QAM 12/29/20 01/09/23 History THYROMIN 1 tab PO QAM 12/29/20 01/09/23 History cetirizine 10 mg tablet 10 mg PO DAILY 12/29/20 01/09/23 History sertraline 50 mg tablet 75 mg PO QAM 11/07/21 01/09/23 History medical marijuana 1 dose inhalation DIRECTED PRN 03/19/22 01/09/23 History NEEDED [id number]-[id number]-mprvnimh 1 tab PO Q4H PRN migraine headache 04/24/22 01/09/23 History 50 mg-325 mg-40 mg tablet loratadine 10 mg tablet (Claritin) 10 mg PO DAILY 04/24/22 01/09/23 History pantoprazole 40 mg tablet,delayed 40 mg PO DAILY 04/24/22 01/09/23 History release anastrozole 1 mg tablet 1 mg PO DAILY 10/05/22 01/09/23 History multivitamin 1 tab PO DAILY 10/05/22 01/09/23 History ondansetron HCl 8 mg tablet 8 mg PO Q8H PRN NAUSEA/VOMITING 10/05/22 01/09/23 History prochlorperazine maleate 10 mg 10 mg PO Q6H PRN NAUSEA/VOMITING 10/05/22 01/09/23 History tablet (Compazine) sennosides 8.6 mg tablet (Senokot) 8.6 mg PO DAILY 10/05/22 01/09/23 History levothyroxine 100 mcg tablet 100 mcg PO DAILY #30 tabs 12/19/22 01/09/23 Rx liothyronine 5 mcg tablet 5 mcg PO QAM #90 tabs 01/08/23 01/09/23 Rx goserelin 3.6 mg subcutaneous 0 mg subcut MONTHLY 01/09/23 01/09/23 History implant (Zoladex) Patient History Medical History Allergic rhinitis TAMERA positive mixed connective disorder Arthritis Depression, major DVT (deep venous thrombosis) Right subclavian 11/2021 Dysmetabolic syndrome X GERD without esophagitis Jagjit's thyroiditis Hiatal hernia Hypercholesterolemia Hyperlipidemia Hypothyroidism Irregular menstrual cycle Low back pain Migraine headache Multilevel degenerative disc disease Psoriasis Raynaud's disease Reactive airway disease Tinnitus Surgical History H/O bilateral mastectomy (04/03/22) w/ reconstruction H/O dilation and curettage 2010 History of History of eye surgery History of wisdom tooth extraction Port-A-Cath in place (11/20/21) Port placement with fluoroscopy. Dr. Hebert 11/20/2021 Family History Mother Hypertension Dyslipidemia Grandfather Cancer Colorectal cancer Grandfather (Maternal) Myocardial infarction Prostate cancer Heart disease Stroke Father Hypertension Grandfather (Paternal) Pancreatic cancer Other Environmental allergies No family history of adverse response to anesthesia No family history of bleeding disorder Denies family history of Ovarian cancer Breast cancer Social History Smoking Status: Never smoker Second Hand Exposure: No; Do You Dip or Chew Tobacco: No; Hx Alcohol Use: No (no alcohol for year and a half) Hx Substance Use: No Preferred Language: Brune[place] Communication Ability: Effective Visual Impairment: No Limitations Hearing Ability: Normal Home And Family Living Professor Required: No Beliefs That Will Affect Care: None marital status: Current Living Situation: Spouse current occupational status: employed 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 - [employer] How many Children do You have: 4 Feels Safe at Home: Yes Childhood Exposure to Second-Hand Smoke: Yes Diet Comment: paleo diet caffeine: Yes during the past year weight has: remained stable Dental Care, Regularly: Yes Physical Activity Frequency: Daily Seatbelt Use: always Sunscreen Use: Yes Assistive Devices: Glasses Review of Systems Constitutional: no fever and no chills Respiratory: no dyspnea Cardiovascular: no chest pain Musculoskeletal: no noticeable issues surrounding port, functioning fine Physical Exam Physical Exam: awake/alert, no distress Constitutional: well developed, well nourished and comfortable Respiratory: normal respiratory effort Cardiovascular: Heart rates ranging from 90-100s Chest (Breasts): Additional Comments: there is erythema of the R breast surrounding inferior aspect of areola extending laterally and inferiorly. non tender. no obvious fluid collections noted. L breast has radiation skin changes with some erythema superior to breast extending to chest, non tender Skin: there is opaque tape overtop of the mediport making it hard to fully evaluate area of the port, but no obvious signs of infection noted Results & Data Vital Signs (Past 12 Hours) Vital Signs Temp Pulse Resp BP Pulse Ox O2 Del Method 01/11/23 11:12 37 C 92 H 18 99/67 L 95 Room Air 01/11/23 08:10 37.8 C H 18 108/68 96 Room Air 01/11/23 04:05 36.9 C 96 H 20 104/69 96 Room Air PG Care Time/CCT Total # of Minutes Spent Total Time Spent with Patient: Total time spent is greater than 50% in coordination of care (as documented) at patient's floor/unit and/or counseling patient: Coding Level of Care Code 25269 IN/OBS CONSULT LVL 3,45M Diagnoses Streptococcal bacteremia R78.81; B95.5
--- NOTE | 2023-01-11 13:48 | Infectious Disease Consult ---
Date of Consultation January 11, 2023 Assessment & Plan (1) Streptococcal bacteremia: (2) Immunocompromised state: Plan #BHS, Group G bacteremia # Breast ca with R breast implant 47-year-old female with history of right subclavian vein treated with a 6-month course of Eliquis, stage Ib triple positive left breast ca s/p radiation and neoadjuvant systemic therapy with TCHP completed on 03/09/2022 followed by bilateral mastectomy with reconstruction on 04/03/2022 with pathology revealing residual disease. Currently on adjuvant treatment with Kadcyla. History c/b implant infection s/p removal of L breast implant (currently with R breast implant), she prev reqd multiple I&Ds with negative culture and subsequently had removal of tissue mill tender warm up on 11/17/2022 on L side. Patient admitted with palpitations to [facility]. Infectious diseases consulted for strep bacteremia Labs obtained in the ED revealed elevated lactic acid level of 3.1, transaminitis with ALT of 171, AST of 291 and alkaline phosphatase of 538. CTA chest revealed no evidence of PE but was concerning for bronchitis possibly infectious/inflammatory as well as prominent mediastinal and hilar lymph nodes. CT abdomen and pelvis was concerning for gastritis and also revealed hepatic steatosis with mild splenomegaly. 01/09 Blood cultures from [facility] revealed gram-positive cocci in chains ultimately growing Group G strep 2/2 bottles. Repeat cultures 01/10 and 01/11 in lab. 2D echocardiogram normal EF 55 to 60%, no obvious vegetation. InitiallyPatient was given a dose of IV vancomycin and Zosyn in the ED for empiric coverage, now narrowed to Ceftriaxone. Exam notable for R elbow fluid collection? R breast erythema, and L chest wall erythema Recommend C/W Ceftriaxone Follow blood cultures R elbow evaluation for infection R breast implant skin is concerning although CT Chest no sig findings there, consider ultrasound Agree with mediport removal, as blood cultures taken and source of infection unclear I spoke with Dr. Moya, please page OTW with questions, will return on Saturday. Katie Castaneda MD Infectious Diseases [facility] Consultation Information Consultation was provided via telemedicine using two-way real-time interactive telecommunication between the patient and the telemedicine provider. For the duration of the visit, the provider was performing the assessment from a different facility than the patient. This includesuse of bluetooth stethoscope forauscultationperformed by the telepresenter that the telemedicine provider can hear if described in the physical exam. Wire Cutter contact information: Please call [facility] Call Center [phone]. (Phone Number For Physician Use Only) After establishing a telemedicine visit, patient was: Patient was verified with two unique identifiers, Patient/authorized rep acknowledged consent and understanding and Gave permission to continue telehealth session Time Spent with Patient: Initial => 55 min History of Present Illness Requesting Physician: bacteremia Attending Physician: Ricardo Moya MD History of Present Illness 47-year-old female with history of right subclavian vein treated with a 6-month course of Eliquis, stage Ib triple positive left breast ca s/p radiation and neoadjuvant systemic therapy with TCHP completed on 03/09/2022 followed by bilateral mastectomy with reconstruction on 04/03/2022 with pathology revealing residual disease. Currently on adjuvant treatment with Kadcyla. History c/b implant infection s/p removal of L breast implant (currently with R breast implant), she prev reqd multiple I&Ds with negative culture and subsequently had removal of tissue mill tender warm up on 11/17/2022 on L side. Patient admitted with palpitations to [facility]. Infectious diseases consulted for strep bacteremia Labs obtained in the ED revealed elevated lactic acid level of 3.1, transaminitis with ALT of 171, AST of 291 and alkaline phosphatase of 538. CTA chest revealed no evidence of PE but was concerning for bronchitis possibly infectious/inflammatory as well as prominent mediastinal and hilar lymph nodes. CT abdomen and pelvis was concerning for gastritis and also revealed hepatic steatosis with mild splenomegaly. 01/09 Blood cultures from [facility] revealed gram-positive cocci in chains ultimately growing Group G strep /2 bottles. Repeat cultures 01/10 and 01/11 in lab. 2D echocardiogram normal EF 55 to 60%, no obvious vegetation. InitiallyPatient was given a dose of IV vancomycin and Zosyn in the ED for empiric coverage, now narrowed to Ceftriaxone. Today, still has some palpitations, somewhat improved. No diarrhea, fevers, but felt low grade temp overnight. Allergies Allergy/AdvReac Type Severity Reaction Status Date / Time animal dander Allergy Intermediate NASAL Verified 01/09/23 22:50 CONGESTION house dust AdvReac Intermediate NASAL Verified 01/09/23 22:50 CONGESTION Home Medications Medication Instructions Recorded Confirmed Type venlafaxine 150 mg 150 mg PO QAM 02/06/19 01/09/23 History capsule,extended release 24 hr albuterol sulfate 90 mcg/actuation 2 puffs inhalation Q4H PRN 02/08/20 01/09/23 Rx aerosol inhaler shortness of breath or wheezing #1 g cholecalciferol (vitamin D3) 125 5,000 units PO DAILY 02/08/20 01/09/23 History mcg (5,000 unit) tablet meloxicam 15 mg tablet 15 mg PO DAILY PRN pain #30 tabs 02/08/20 01/09/23 Rx AMINO ACID SUPREME 1 tab PO QAM 12/29/20 01/09/23 History YOLANDE MAG 1 tab PO QAM 12/29/20 01/09/23 History PROBIOTIC SUPREME 1 tab PO QAM 12/29/20 01/09/23 History THYROMIN 1 tab PO QAM 12/29/20 01/09/23 History cetirizine 10 mg tablet 10 mg PO DAILY 12/29/20 01/09/23 History sertraline 50 mg tablet 75 mg PO QAM 11/07/21 01/09/23 History medical marijuana 1 dose inhalation DIRECTED PRN 03/19/22 01/09/23 History NEEDED putinkchqm-sozneatoppjub-zgezczfx 1 tab PO Q4H PRN migraine headache 04/24/22 01/09/23 History 50 mg-325 mg-40 mg tablet loratadine 10 mg tablet (Claritin) 10 mg PO DAILY 04/24/22 01/09/23 History pantoprazole 40 mg tablet,delayed 40 mg PO DAILY 04/24/22 01/09/23 History release anastrozole 1 mg tablet 1 mg PO DAILY 10/05/22 01/09/23 History multivitamin 1 tab PO DAILY 10/05/22 01/09/23 History ondansetron HCl 8 mg tablet 8 mg PO Q8H PRN NAUSEA/VOMITING 10/05/22 01/09/23 History prochlorperazine maleate 10 mg 10 mg PO Q6H PRN NAUSEA/VOMITING 10/05/22 01/09/23 History tablet (Compazine) sennosides 8.6 mg tablet (Senokot) 8.6 mg PO DAILY 10/05/22 01/09/23 History levothyroxine 100 mcg tablet 100 mcg PO DAILY #30 tabs 12/19/22 01/09/23 Rx liothyronine 5 mcg tablet 5 mcg PO QAM #90 tabs 01/08/23 01/09/23 Rx goserelin 3.6 mg subcutaneous 0 mg subcut MONTHLY 01/09/23 01/09/23 History implant (Zoladex) Patient History Medical History Allergic rhinitis TAMERA positive mixed connective disorder Arthritis Depression, major DVT (deep venous thrombosis) Right subclavian 11/2021 Dysmetabolic syndrome X GERD without esophagitis Jagjit's thyroiditis Hiatal hernia Hypercholesterolemia Hyperlipidemia Hypothyroidism Irregular menstrual cycle Low back pain Migraine headache Multilevel degenerative disc disease Psoriasis Raynaud's disease Reactive airway disease Tinnitus Surgical History H/O bilateral mastectomy (04/03/22) w/ reconstruction H/O dilation and curettage 2010 History of History of eye surgery History of wisdom tooth extraction Port-A-Cath in place (11/20/21) Port placement with fluoroscopy. Dr. Hebert 11/20/2021 Family History Mother Hypertension Dyslipidemia Grandfather Cancer Colorectal cancer Grandfather (Maternal) Myocardial infarction Prostate cancer Heart disease Stroke Father Hypertension Grandfather (Paternal) Pancreatic cancer Other Environmental allergies No family history of adverse response to anesthesia No family history of bleeding disorder Denies family history of Ovarian cancer Breast cancer Social History Smoking Status: Never smoker Second Hand Exposure: No; Do You Dip or Chew Tobacco: No; Hx Alcohol Use: No (no alcohol for year and a half) Hx Substance Use: No Preferred Language: Occitan Communication Ability: Effective Visual Impairment: No Limitations Hearing Ability: Normal Net Washer Required: No Beliefs That Will Affect Care: None marital status: Current Living Situation: Spouse current occupational status: employed 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 Results & Data Vital Signs (Past 12 Hours) Vital Signs Temp Pulse Resp BP Pulse Ox O2 Del Method 01/11/23 11:12 37 C 92 H 18 99/67 L 95 Room Air 01/11/23 08:10 37.8 C H 18 108/68 96 Room Air 01/11/23 04:05 36.9 C 96 H 20 104/69 96 Room Air Laboratory Results Laboratory Results - last 48 hr 01/09/23 01/09/23 01/09/23 22:24 22:24 22:24 WBC 7.06 RBC 4.14 L Hgb 12.0 Hct 34.7 L MCV 83.8 MCH 29.0 MCHC 34.6 RDW Std Deviation 44.5 RDW Coeff of Nichole 14.6 H Plt Count 72 L MPV 10.2 Immature Gran % (Auto) 0.6 Neut % (Auto) 88.9 Lymph % (Auto) 3.8 [place] % (Auto) 6.4 Eos % (Auto) 0.0 Baso % (Auto) 0.3 Neut # (Auto) 6.28 Lymph # (Auto) 0.27 L [place] # (Auto) 0.45 Eos # (Auto) 0.00 Baso # (Auto) 0.02 Immature Gran # (Auto) 0.04 Platelet Estimate Decreased L Polychromasia 1+ PT 10.6 INR 1.0 APTT 29.4 PTT Ratio 1.0 Sodium 128 L Potassium 3.7 Chloride 93 L Carbon Dioxide 26 Anion Gap 9 BUN 12 Creatinine 0.79 Est Cr Clr Drug Dosing 77.3 Est GFR ( Amer) 104.0 Est GFR (Non-Af Amer) 89.8 BUN/Creatinine Ratio 15.2 Glucose 126 H Lactate Calcium 8.4 L Total Bilirubin 0.6 AST 291 H ALT 171 H Alkaline Phosphatase 538 H Troponin I High Sens 25.7 H C-Reactive Protein Total Protein 7.3 Albumin 3.5 Globulin 3.8 Albumin/Globulin Ratio 0.9 Lipase 14 TSH Free T4 Urine Color Urine Appearance Urine pH Ur Specific [place] Urine Protein Urine Glucose (UA) Urine Ketones Urine Blood Urine Nitrite Urine Bilirubin Urine Urobilinogen Ur Leukocyte Esterase Urine WBC (Auto) Urine RBC (Auto) U Hyaline Cast (Auto) U Epithel Cells (Auto) Urine Bacteria (Auto) Urine Osmolality Ur Random Creatinine Ur Random Sodium Adenovirus (PCR) B. pertussis DNA (PCR) B.parapertussis DNA PCR C. pneumoniae DNA (PCR) Coronavirus OC43 (PCR) Coronavirus HKU1 (PCR) Coronavirus 229E (PCR) SARS-CoV-2 (PCR) Coronavirus NL63 (PCR) Human Metapneumovir PCR Influenza Type A (PCR) Influenza Type B (PCR) M. pneumoniae (PCR) Parainfluenza 1 (PCR) Parainfluenza 2 (PCR) Parainfluenza 3 (PCR) Parainfluenza 4 (PCR) RSV (PCR) Entero/Rhino (PCR) Streptococcus sp PCR Bld Cult ID Panel PCR 01/09/23 01/09/23 01/09/23 22:24 22:24 22:24 WBC RBC Hgb Hct MCV MCH MCHC RDW Std Deviation RDW Coeff of Nichole Plt Count MPV Immature Gran % (Auto) Neut % (Auto) Lymph % (Auto) [place] % (Auto) Eos % (Auto) Baso % (Auto) Neut # (Auto) Lymph # (Auto) [place] # (Auto) Eos # (Auto) Baso # (Auto) Immature Gran # (Auto) Platelet Estimate Polychromasia PT INR APTT PTT Ratio Sodium Potassium Chloride Carbon Dioxide Anion Gap BUN Creatinine Est Cr Clr Drug Dosing Est GFR ( Amer) Est GFR (Non-Af Amer) BUN/Creatinine Ratio Glucose Lactate 3.1 H* Calcium Total Bilirubin AST ALT Alkaline Phosphatase Troponin I High Sens C-Reactive Protein Total Protein Albumin Globulin Albumin/Globulin Ratio Lipase TSH 1.052 Free T4 Urine Color Urine Appearance Urine pH Ur Specific [place] Urine Protein Urine Glucose (UA) Urine Ketones Urine Blood Urine Nitrite Urine Bilirubin Urine Urobilinogen Ur Leukocyte Esterase Urine WBC (Auto) Urine RBC (Auto) U Hyaline Cast (Auto) U Epithel Cells (Auto) Urine Bacteria (Auto) Urine Osmolality Ur Random Creatinine Ur Random Sodium Adenovirus (PCR) B. pertussis DNA (PCR) B.parapertussis DNA PCR C. pneumoniae DNA (PCR) Coronavirus OC43 (PCR) Coronavirus HKU1 (PCR) Coronavirus 229E (PCR) SARS-CoV-2 (PCR) Coronavirus NL63 (PCR) Human Metapneumovir PCR Influenza Type A (PCR) Influenza Type B (PCR) M. pneumoniae (PCR) Parainfluenza 1 (PCR) Parainfluenza 2 (PCR) Parainfluenza 3 (PCR) Parainfluenza 4 (PCR) RSV (PCR) Entero/Rhino (PCR) Streptococcus sp PCR DETECTED A Bld Cult ID Panel PCR See PCR Comment 01/09/23 01/10/23 01/10/23 23:50 00:42 00:50 WBC RBC Hgb Hct MCV MCH MCHC RDW Std Deviation RDW Coeff of Nichole Plt Count MPV Immature Gran % (Auto) Neut % (Auto) Lymph % (Auto) [place] % (Auto) Eos % (Auto) Baso % (Auto) Neut # (Auto) Lymph # (Auto) [place] # (Auto) Eos # (Auto) Baso # (Auto) Immature Gran # (Auto) Platelet Estimate Polychromasia PT INR APTT PTT Ratio Sodium Potassium Chloride Carbon Dioxide Anion Gap BUN Creatinine Est Cr Clr Drug Dosing Est GFR ( Amer) Est GFR (Non-Af Amer) BUN/Creatinine Ratio Glucose Lactate 1.0 Calcium Total Bilirubin AST ALT Alkaline Phosphatase Troponin I High Sens C-Reactive Protein Total Protein Albumin Globulin Albumin/Globulin Ratio Lipase TSH Free T4 Urine Color Yellow Urine Appearance Clear Urine pH 7.5 Ur Specific [place] > 1.045 H Urine Protein 2+ H Urine Glucose (UA) Negative Urine Ketones Negative Urine Blood 1+ H Urine Nitrite Negative Urine Bilirubin Negative Urine Urobilinogen Negative Ur Leukocyte Esterase Negative Urine WBC (Auto) 1-5 Urine RBC (Auto) 10-30 H U Hyaline Cast (Auto) 1-5 U Epithel Cells (Auto) 5-10 H Urine Bacteria (Auto) Negative Urine Osmolality Ur Random Creatinine Ur Random Sodium Adenovirus (PCR) Not Detected B. pertussis DNA (PCR) Not Detected B.parapertussis DNA PCR Not Detected C. pneumoniae DNA (PCR) Not Detected Coronavirus OC43 (PCR) Not Detected Coronavirus HKU1 (PCR) Not Detected Coronavirus 229E (PCR) Not Detected SARS-CoV-2 (PCR) Not Detected Coronavirus NL63 (PCR) Not Detected Human Metapneumovir PCR Not Detected Influenza Type A (PCR) Not Detected Influenza Type B (PCR) Not Detected M. pneumoniae (PCR) Not Detected Parainfluenza 1 (PCR) Not Detected Parainfluenza 2 (PCR) Not Detected Parainfluenza 3 (PCR) Not Detected Parainfluenza 4 (PCR) Not Detected RSV (PCR) Not Detected Entero/Rhino (PCR) Not Detected Streptococcus sp PCR Bld Cult ID Panel PCR 01/10/23 01/10/23 01/10/23 08:41 08:41 08:41 WBC RBC Hgb Hct MCV MCH MCHC RDW Std Deviation RDW Coeff of Nichole Plt Count MPV Immature Gran % (Auto) Neut % (Auto) Lymph % (Auto) [place] % (Auto) Eos % (Auto) Baso % (Auto) Neut # (Auto) Lymph # (Auto) [place] # (Auto) Eos # (Auto) Baso # (Auto) Immature Gran # (Auto) Platelet Estimate Polychromasia PT INR APTT PTT Ratio Sodium 138 D Potassium 3.4 L Chloride 105 Carbon Dioxide 28 Anion Gap 5 BUN 8 Creatinine 0.78 Est Cr Clr Drug Dosing 79.1 Est GFR ( Amer) 105.7 Est GFR (Non-Af Amer) 91.2 BUN/Creatinine Ratio 10.3 Glucose 112 H Lactate 1.5 Calcium 8.3 L Total Bilirubin 0.5 AST 136 H ALT 134 H Alkaline Phosphatase 408 H Troponin I High Sens 12.1 D C-Reactive Protein Total Protein 6.5 Albumin 3.0 L Globulin 3.5 Albumin/Globulin Ratio 0.9 Lipase TSH Free T4 1.38 Urine Color Urine Appearance Urine pH Ur Specific [place] Urine Protein Urine Glucose (UA) Urine Ketones Urine Blood Urine Nitrite Urine Bilirubin Urine Urobilinogen Ur Leukocyte Esterase Urine WBC (Auto) Urine RBC (Auto) U Hyaline Cast (Auto) U Epithel Cells (Auto) Urine Bacteria (Auto) Urine Osmolality Ur Random Creatinine Ur Random Sodium Adenovirus (PCR) B. pertussis DNA (PCR) B.parapertussis DNA PCR C. pneumoniae DNA (PCR) Coronavirus OC43 (PCR) Coronavirus HKU1 (PCR) Coronavirus 229E (PCR) SARS-CoV-2 (PCR) Coronavirus NL63 (PCR) Human Metapneumovir PCR Influenza Type A (PCR) Influenza Type B (PCR) M. pneumoniae (PCR) Parainfluenza 1 (PCR) Parainfluenza 2 (PCR) Parainfluenza 3 (PCR) Parainfluenza 4 (PCR) RSV (PCR) Entero/Rhino (PCR) Streptococcus sp PCR Bld Cult ID Panel PCR 01/10/23 01/10/23 01/10/23 Unknown Unknown Unknown WBC RBC Hgb Hct MCV MCH MCHC RDW Std Deviation RDW Coeff of Nichole Plt Count MPV Immature Gran % (Auto) Neut % (Auto) Lymph % (Auto) [place] % (Auto) Eos % (Auto) Baso % (Auto) Neut # (Auto) Lymph # (Auto) [place] # (Auto) Eos # (Auto) Baso # (Auto) Immature Gran # (Auto) Platelet Estimate Polychromasia PT INR APTT PTT Ratio Sodium Potassium Chloride Carbon Dioxide Anion Gap BUN Creatinine Est Cr Clr Drug Dosing Est GFR ( Amer) Est GFR (Non-Af Amer) BUN/Creatinine Ratio Glucose Lactate Calcium Total Bilirubin AST ALT Alkaline Phosphatase Troponin I High Sens C-Reactive Protein Total Protein Albumin Globulin Albumin/Globulin Ratio Lipase TSH Free T4 Urine Color Urine Appearance Urine pH Ur Specific [place] Urine Protein Urine Glucose (UA) Urine Ketones Urine Blood Urine Nitrite Urine Bilirubin Urine Urobilinogen Ur Leukocyte Esterase Urine WBC (Auto) Urine RBC (Auto) U Hyaline Cast (Auto) U Epithel Cells (Auto) Urine Bacteria (Auto) Urine Osmolality 155 L Ur Random Creatinine 23.5 Ur Random Sodium 19 Adenovirus (PCR) B. pertussis DNA (PCR) B.parapertussis DNA PCR C. pneumoniae DNA (PCR) Coronavirus OC43 (PCR) Coronavirus HKU1 (PCR) Coronavirus 229E (PCR) SARS-CoV-2 (PCR) Coronavirus NL63 (PCR) Human Metapneumovir PCR Influenza Type A (PCR) Influenza Type B (PCR) M. pneumoniae (PCR) Parainfluenza 1 (PCR) Parainfluenza 2 (PCR) Parainfluenza 3 (PCR) Parainfluenza 4 (PCR) RSV (PCR) Entero/Rhino (PCR) Streptococcus sp PCR Bld Cult ID Panel PCR 01/11/23 01/11/23 06:57 06:57 WBC 6.32 RBC 3.92 L Hgb 11.4 L Hct 33.3 L MCV 84.9 MCH 29.1 MCHC 34.2 RDW Std Deviation 46.1 RDW Coeff of Nichole 15.0 H Plt Count 80 L MPV 9.8 Immature Gran % (Auto) Neut % (Auto) Lymph % (Auto) [place] % (Auto) Eos % (Auto) Baso % (Auto) Neut # (Auto) Lymph # (Auto) [place] # (Auto) Eos # (Auto) Baso # (Auto) Immature Gran # (Auto) Platelet Estimate Polychromasia PT INR APTT PTT Ratio Sodium 136 Potassium 3.4 L Chloride 103 Carbon Dioxide 27 Anion Gap 6 BUN 5 L Creatinine 0.61 Est Cr Clr Drug Dosing 101.5 Est GFR ( Amer) 126.0 Est GFR (Non-Af Amer) 108.7 BUN/Creatinine Ratio 8.2 L Glucose 86 Lactate Calcium 8.5 L Total Bilirubin 0.6 AST 113 H ALT 134 H Alkaline Phosphatase 446 H Troponin I High Sens C-Reactive Protein 15.51 H Total Protein 6.9 Albumin 3.1 L Globulin 3.8 Albumin/Globulin Ratio 0.8 L Lipase TSH Free T4 Urine Color Urine Appearance Urine pH Ur Specific [place] Urine Protein Urine Glucose (UA) Urine Ketones Urine Blood Urine Nitrite Urine Bilirubin Urine Urobilinogen Ur Leukocyte Esterase Urine WBC (Auto) Urine RBC (Auto) U Hyaline Cast (Auto) U Epithel Cells (Auto) Urine Bacteria (Auto) Urine Osmolality Ur Random Creatinine Ur Random Sodium Adenovirus (PCR) B. pertussis DNA (PCR) B.parapertussis DNA PCR C. pneumoniae DNA (PCR) Coronavirus OC43 (PCR) Coronavirus HKU1 (PCR) Coronavirus 229E (PCR) SARS-CoV-2 (PCR) Coronavirus NL63 (PCR) Human Metapneumovir PCR Influenza Type A (PCR) Influenza Type B (PCR) M. pneumoniae (PCR) Parainfluenza 1 (PCR) Parainfluenza 2 (PCR) Parainfluenza 3 (PCR) Parainfluenza 4 (PCR) RSV (PCR) Entero/Rhino (PCR) Streptococcus sp PCR Bld Cult ID Panel PCR Microbiology 01/09/23 22:24 Blood Aerobic Blood Culture - Preliminary Group G Beta Strep 01/09/23 22:24 Blood Anaerobic Blood Culture - Preliminary Group G Beta Strep 01/10/23 00:13 Blood Aerobic Blood Culture - Preliminary No growth in Aerobic bottle after 24 hours. 01/10/23 00:13 Blood Anaerobic Blood Culture - Preliminary No growth in Anaerobic bottle after 24 hours. Medications Administered Current Inpatient Medications Acetaminophen (Acetaminophen 325 Mg Tab) 650 mg PO Q4H PRN PRN Reason: Pain or Fever Stop: 02/09/23 02:18 Last Admin: 01/11/23 07:42 Dose: 650 mg Acetaminophen/Butalbital/Caffeine (Butalbital/Acetamin/Caffeine Tab) 1 tab PO Q4H PRN PRN Reason: migraine headache Stop: 02/09/23 02:18 Albuterol (Albuterol Hfa 8 Gm Inhaler) 2 puffs INH Q4H PRN PRN Reason: shortness of breath or wheezing Stop: 02/09/23 02:18 Anastrozole (Anastrozole 1 Mg Tab) 1 mg PO DAILY [facility] Stop: 02/09/23 08:59 Last Admin: 01/11/23 08:34 Dose: 1 mg Heparin Sodium (Porcine) (Heparin Sod 5,000 Unit/0.5 Ml Vial) 5,000 units SQ Q12 LES Stop: 02/09/23 08:59 Last Admin: 01/11/23 08:35 Dose: 5,000 units Ceftriaxone Sodium 2,000 mg/ (Dextrose) 70 mls @ 140 mls/hr IV Q24H LES Stop: 01/25/23 10:59 Last Infusion: 01/11/23 11:52 Dose: Infused Lactobacillus Acidophilus (Advanced Probiotic 1250 Mg Capsule) 2 cap PO QAM LES Stop: 02/09/23 08:59 Last Admin: 01/11/23 08:36 Dose: 2 cap Levothyroxine Sodium (Levothyroxine Sodium 100 Mcg Tablet) 100 mcg PO DAILYBB [facility] Stop: 02/09/23 06:29 Last Admin: 01/11/23 05:02 Dose: 100 mcg Liothyronine Sodium (Liothyronine Sodium 5 Mcg Tab) 5 mcg PO DAILYBB LES Stop: 02/09/23 06:29 Last Admin: 01/11/23 05:02 Dose: 5 mcg Multivitamins (Multivitamin Tab) 1 tab PO DAILY LES Stop: 02/09/23 08:59 Last Admin: 01/11/23 08:36 Dose: 1 tab Ondansetron HCl (Ondansetron 4 Mg Od Tab) 8 mg PO Q8H PRN PRN Reason: Nausea And Vomiting Stop: 02/09/23 02:46 Pantoprazole Sodium (Pantoprazole 40 Mg Tab) 40 mg PO DAILY [facility] Stop: 02/09/23 08:59 Last Admin: 01/11/23 08:36 Dose: 40 mg Polyethylene Glycol (Polyethylene (Miralax) 17 Gm Pack) 17 gm PO DAILY PRN PRN Reason: Constipation Stop: 02/09/23 02:18 Sennosides (Senna 8.6 Mg Tab) 8.6 mg PO DAILY [facility] Stop: 02/09/23 08:59 Last Admin: 01/11/23 08:37 Dose: 8.6 mg Sertraline HCl (Sertraline Hcl 50 Mg Tablet) 75 mg PO QAM [facility] Stop: 02/09/23 08:59 Last Admin: 01/11/23 08:37 Dose: 75 mg Venlafaxine HCl (Venlafaxine Hcl Xr 150 Mg Capxr) 150 mg PO QAM [facility] Stop: 02/09/23 08:59 Last Admin: 01/11/23 08:38 Dose: 150 mg Vitamin D (Cholecalciferol 5,000 Units 125 Mcg Tab) 5,000 units PO DAILY [facility] Stop: 02/09/23 08:59 Last Admin: 01/11/23 08:35 Dose: 5,000 units
--- NOTE | 2023-01-11 15:57 | Orthopedic Consultation ---
Date of Consultation January 11, 2023 Assessment & Plan (1) Cellulitis of right elbow: 47 year old female with right elbow soft tissue swelling and erythema likely cellulitis X-rays of elbow ordered we will continue to follow. I benita a line of demarcation over area of erythema so we can continue to monitor. She has great ROM nearly pain-free so my suspicion for joint infection is low but we will continue to monitor symptoms worsen may need to order an MRI. Does not appear to be entirely olecranon bursitis as the area of swelling/erythema is more diffuse and more lateral to the olecranon bursa. Nothing to drain. She is currently on IV abx and I would continue these. She can be WBAT and freely move her elbow as she wishes. Recommended ice to affected area to help with swelling. 45 minutes was spent reviewing patient chart, seeing patient and conducting full exam and educating her on my findings and plan moving forward and documentation, 5 minutes was spent discussing with Dr Brown who was in agreement with this plan Present on Admission?: Yes Supervising Physician Co-Signing Physician Notes I, Dr. Brown, saw and examined the patient IDr. Brown, saw and examined the patient and discussed the management with my PA. I spent 45 minutes reviewing the chart, reading the imaging, evaluating the patient, documenting, and discussing care plan with the patient, primary service, and PA. PE: RUE: Full ROM elbow and forearm. Neurovascularly intact: Sensation to light touch is intact distally, 2+ radial pulse, motor to her median, radial, ulnar, AIN, PIN, and musculocutaneous nerves are intact. Small half dollar size pancake area of erythema over the posterior lateral elbow with minimal warmth. No fluctuance. Reviewed the radiographs 3 views of the right elbow and agree with radiologist read of no acute fracture or dislocation or bony abnormality. Unremarkable study. History of Present Illness Reason for Consultation: right elbow pain Requesting Physician: Reed Brown MD Attending Physician: Ricardo Moya MD History of Present Illness Pt is a 47 YO F who was admitted 01/10/23 with heart palpitations. She was found to have bacteremia from mediport that she has for IV chemotherapy for invasive ductal breast carcinoma. Patient is scheduled to have mediport removed tomorrow 01/12/23. Upon further exam she was found to have right elbow swelling and erythema and there was concern for elbow infection. We were consulted for further evaluation. Pt said she noticed it Saturday when she brushed it against a chair. She denies injury. Denies previous surgery or issues with her elbow. She said it somewhat painful. She isn't having issues moving it. Allergies Allergy/AdvReac Type Severity Reaction Status Date / Time animal dander Allergy Intermediate NASAL Verified 01/09/23 22:50 CONGESTION house dust AdvReac Intermediate NASAL Verified 01/09/23 22:50 CONGESTION Home Medications Medication Instructions Recorded Confirmed Type venlafaxine 150 mg 150 mg PO QAM 02/06/19 01/09/23 History capsule,extended release 24 hr albuterol sulfate 90 mcg/actuation 2 puffs inhalation Q4H PRN 02/08/20 01/09/23 Rx aerosol inhaler shortness of breath or wheezing #1 g cholecalciferol (vitamin D3) 125 5,000 units PO DAILY 02/08/20 01/09/23 History mcg (5,000 unit) tablet meloxicam 15 mg tablet 15 mg PO DAILY PRN pain #30 tabs 02/08/20 01/09/23 Rx AMINO ACID SUPREME 1 tab PO QAM 12/29/20 01/09/23 History YOLANDE MAG 1 tab PO QAM 12/29/20 01/09/23 History PROBIOTIC SUPREME 1 tab PO QAM 12/29/20 01/09/23 History THYROMIN 1 tab PO QAM 12/29/20 01/09/23 History cetirizine 10 mg tablet 10 mg PO DAILY 12/29/20 01/09/23 History sertraline 50 mg tablet 75 mg PO QAM 11/07/21 01/09/23 History medical marijuana 1 dose inhalation DIRECTED PRN 03/19/22 01/09/23 History NEEDED imyfbotxzl-oggvszwnywncc-bdmmxnhw 1 tab PO Q4H PRN migraine headache 04/24/22 01/09/23 History 50 mg-325 mg-40 mg tablet loratadine 10 mg tablet (Claritin) 10 mg PO DAILY 04/24/22 01/09/23 History pantoprazole 40 mg tablet,delayed 40 mg PO DAILY 04/24/22 01/09/23 History release anastrozole 1 mg tablet 1 mg PO DAILY 10/05/22 01/09/23 History multivitamin 1 tab PO DAILY 10/05/22 01/09/23 History ondansetron HCl 8 mg tablet 8 mg PO Q8H PRN NAUSEA/VOMITING 10/05/22 01/09/23 History prochlorperazine maleate 10 mg 10 mg PO Q6H PRN NAUSEA/VOMITING 10/05/22 01/09/23 History tablet (Compazine) sennosides 8.6 mg tablet (Senokot) 8.6 mg PO DAILY 10/05/22 01/09/23 History levothyroxine 100 mcg tablet 100 mcg PO DAILY #30 tabs 12/19/22 01/09/23 Rx liothyronine 5 mcg tablet 5 mcg PO QAM #90 tabs 01/08/23 01/09/23 Rx goserelin 3.6 mg subcutaneous 0 mg subcut MONTHLY 01/09/23 01/09/23 History implant (Zoladex) Patient History Medical History Allergic rhinitis TAMERA positive mixed connective disorder Arthritis Depression, major DVT (deep venous thrombosis) Right subclavian 11/2021 Dysmetabolic syndrome X GERD without esophagitis Jagjit's thyroiditis Hiatal hernia Hypercholesterolemia Hyperlipidemia Hypothyroidism Irregular menstrual cycle Low back pain Migraine headache Multilevel degenerative disc disease Psoriasis Raynaud's disease Reactive airway disease Tinnitus Surgical History H/O bilateral mastectomy (04/03/22) w/ reconstruction H/O dilation and curettage 2010 History of History of eye surgery History of wisdom tooth extraction Port-A-Cath in place (11/20/21) Port placement with fluoroscopy. Dr. Hebert 11/20/2021 Family History Mother Hypertension Dyslipidemia Grandfather Cancer Colorectal cancer Grandfather (Maternal) Myocardial infarction Prostate cancer Heart disease Stroke Father Hypertension Grandfather (Paternal) Pancreatic cancer Other Environmental allergies No family history of adverse response to anesthesia No family history of bleeding disorder Denies family history of Ovarian cancer Breast cancer Social History Smoking Status: Never smoker Second Hand Exposure: No; Do You Dip or Chew Tobacco: No; Hx Alcohol Use: No (no alcohol for year and a half) Hx Substance Use: No Preferred Language: [place]er Communication Ability: Effective Visual Impairment: No Limitations Hearing Ability: Normal Sex Offender Treatment Professional Required: No Beliefs That Will Affect Care: None marital status: Current Living Situation: Spouse current occupational status: employed 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 How many Children do You have: 4 Feels Safe at Home: Yes Childhood Exposure to Second-Hand Smoke: Yes Diet Comment: paleo diet caffeine: Yes during the past year weight has: remained stable Dental Care, Regularly: Yes Physical Activity Frequency: Daily Seatbelt Use: always Sunscreen Use: Yes Assistive Devices: Glasses Review of Systems Review of Systems: All systems reviewed & are unremarkable except as noted in HPI & below Physical Exam Physical Exam: General: Patient is sitting up comfortably in bed, AA&O Right elbow: She has mild swelling and erythema noted over elbow, just slightly lateral to olecranon. She is tender to touch over that area. There is no fluid filled bursa or fluctuance, or abscess appreciated. Patient has full active ROM of her elbow mostly pain free - she reports some pain towards the end of flexion but says its mostly just discomfort. Results & Data Vital Signs (Past 12 Hours) Vital Signs Temp Pulse Resp BP Pulse Ox O2 Del Method 01/11/23 15:46 37.3 C 94 H 16 105/70 95 Room Air 01/11/23 11:12 37 C 92 H 18 99/67 L 95 Room Air 01/11/23 08:10 37.8 C H 18 108/68 96 Room Air 01/11/23 04:05 36.9 C 96 H 20 104/69 96 Room Air Laboratory Results Laboratory Results WBC 6.32 K/ul (4.8-10.8) 01/11/23 06:57 RBC 3.92 M/uL (4.20-5.40) L 01/11/23 06:57 Hgb 11.4 g/dl (12.0-16.0) L 01/11/23 06:57 Hct 33.3 % (37.0-47.0) L 01/11/23 06:57 MCV 84.9 fL (80.0-100.0) 01/11/23 06:57 MCH 29.1 pg (25.0-34.0) 01/11/23 06:57 MCHC 34.2 g/dL (32.0-36.0) 01/11/23 06:57 RDW Std Deviation 46.1 fL (36.4-46.3) 01/11/23 06:57 RDW Coeff of Nichole 15.0 % (11.5-14.5) H 01/11/23 06:57 Plt Count 80 K/uL (130-400) L 01/11/23 06:57 MPV 9.8 fL (9.4-12.4) 01/11/23 06:57 Immature Gran % (Auto) 0.6 % 01/09/23 22: Neut % (Auto) 88.9 % 01/09/23 22:24 Lymph % (Auto) 3.8 % 01/09/23:24 [place] % (Auto) 6.4 % 01/09/23: Eos % (Auto) 0.0 % 01/09/23 22: Baso % (Auto) 0.3 % 01/09/23: Neut # (Auto) 6.28 K/uL (1.40-6.50) 01/09/23 22:24 Lymph # (Auto) 0.27 K/uL (1.2-3.4) L 01/09/23 22:24 [place] # (Auto) 0.45 K/uL (0.11-0.59) 01/09/23 22: Eos # (Auto) 0.00 K/uL (0-0.50) 01/09/23: Baso # (Auto) 0.02 K/uL (0-0.2) 01/09/23: Immature Gran # (Auto) 0.04 K/uL (0.01-0.20) 01/09/23: Platelet Estimate Decreased (Normal) L 01/09/23: Polychromasia 1+ 01/09/23: PT 10.6 Seconds (9.0-12.0) 01/09/23: INR 1.0 (0.9-1.1) 01/09/23: APTT 29.4 Seconds (21.0-31.0) 01/09/23: PTT Ratio 1.0 05/31/23 22:24 Sodium 136 mmol/L (136-145) 01/11/23 06:57 Potassium 3.4 mmol/L (3.5-5.1) L 01/11/23 06:57 Chloride 103 mmol/L (98-107) 01/11/23 06:57 Carbon Dioxide 27 mmol/L (21-32) 01/11/23 06:57 Anion Gap 6 (3-11) 01/11/23 06:57 BUN 5 mg/dl (6-23) L 01/11/23 06:57 Creatinine 0.61 mg/dl (0.6-1.2) 01/11/23 06:57 Est Cr Clr Drug Dosing 101.5 ml/min 01/11/23 06:57 Est GFR ( Amer) 126.0 ml/min 01/11/23 06:57 Est GFR (Non-Af Amer) 108.7 ml/min 01/11/23 06:57 BUN/Creatinine Ratio 8.2 (10-20) L 01/11/23 06:57 Glucose 86 mg/dl (70-99(Fasting)) 01/11/23 06:57 Lactate 1.5 mmol/L (0.4-2.0) 01/10/23 08:41 Calcium 8.5 mg/dl (8.6-10.3) L 01/11/23 06:57 Total Bilirubin 0.6 mg/dl (0.2-1.0) 01/11/23 06:57 AST 113 U/L (13-39) H 01/11/23 06:57 ALT 134 U/L (7-52) H 01/11/23 06:57 Alkaline Phosphatase 446 U/L (34-104) H 01/11/23 06:57 Troponin I High Sens 12.1 pg/ml (0-14) D 01/10/23 08:41 C-Reactive Protein 15.51 mg/dl (0-0.5) H 01/11/23 06:57 Total Protein 6.9 gm/dl (6.0-8.3) 01/11/23 06:57 Albumin 3.1 gm/dl (3.4-5.0) L 01/11/23 06:57 Globulin 3.8 gm/dl (2.5-4.0) 01/11/23 06:57 Albumin/Globulin Ratio 0.8 (0.9-2) L 01/11/23 06:57 Lipase 14 U/L (11-82) 01/09/23 22:24 TSH 1.052 uIu/ml (0.300-4.500) 01/09/23 22:24 Free T4 1.38 ng/dl (0.61-1.60) 01/10/23 08:41 Urine Color Yellow 01/10/23 00:50 Urine Appearance Clear (Clear) 01/10/23 00:50 Urine pH 7.5 (4.5-7.5) 01/10/23 00:50 Ur Specific [place] > 1.045 (1.000-1.030) H 01/10/23 00:50 Urine Protein 2+ (Negative) H 01/10/23 00:50 Urine Glucose (UA) Negative (Negative) 01/10/23 00:50 Urine Ketones Negative (Negative) 01/10/23 00:50 Urine Blood 1+ (Negative) H 01/10/23 00:50 Urine Nitrite Negative (Negative) 01/10/23 00:50 Urine Bilirubin Negative (Negative) 01/10/23 00:50 Urine Urobilinogen Negative (Negative) 01/10/23 00:50 Ur Leukocyte Esterase Negative (Negative) 01/10/23 00:50 Urine WBC (Auto) 1-5 /hpf (0-5) 01/10/23 00:50 Urine RBC (Auto) 10-30 /hpf (0-4) H 01/10/23 00:50 U Hyaline Cast (Auto) 1-5 /lpf (0-5) 01/10/23 00:50 U Epithel Cells (Auto) 5-10 /lpf (0-5) H 01/10/23 00:50 Urine Bacteria (Auto) Negative (Negative) 01/10/23 00:50 Urine Osmolality 155 mOsm/kg (500-800) L 01/10/23 Unknown Ur Random Creatinine 23.5 mg/dl 01/10/23 Unknown Ur Random Sodium 19 mmol/L 01/10/23 Unknown Adenovirus (PCR) Not Detected (NotDetected) 01/09/23 23:50 B. pertussis DNA (PCR) Not Detected (NotDetected) 01/09/23 23:50 B.parapertussis DNA PCR Not Detected (NotDetected) 01/09/23 23:50 C. pneumoniae DNA (PCR) Not Detected (NotDetected) 01/09/23 23:50 Coronavirus OC43 (PCR) Not Detected (NotDetected) 01/09/23 23:50 Coronavirus HKU1 (PCR) Not Detected (NotDetected) 01/09/23 23:50 Coronavirus 229E (PCR) Not Detected (NotDetected) 01/09/23 23:50 SARS-CoV-2 (PCR) Not Detected (NotDetected) 01/09/23 23:50 Coronavirus NL63 (PCR) Not Detected (NotDetected) 01/09/23 23:50 Human Metapneumovir PCR Not Detected (NotDetected) 01/09/23 23:50 Influenza Type A (PCR) Not Detected (NotDetected) 01/09/23 23:50 Influenza Type B (PCR) Not Detected (NotDetected) 01/09/23 23:50 M. pneumoniae (PCR) Not Detected (NotDetected) 01/09/23 23:50 Parainfluenza 1 (PCR) Not Detected (NotDetected) 01/09/23 23:50 Parainfluenza 2 (PCR) Not Detected (NotDetected) 01/09/23 23:50 Parainfluenza 3 (PCR) Not Detected (NotDetected) 01/09/23 23:50 Parainfluenza 4 (PCR) Not Detected (NotDetected) 01/09/23 23:50 RSV (PCR) Not Detected (NotDetected) 01/09/23 23:50 Entero/Rhino (PCR) Not Detected (NotDetected) 01/09/23 23:50 Streptococcus sp PCR DETECTED (NotDetected) A 01/09/23 22:24 Bld Cult ID Panel PCR See PCR Comment (NotDetected) 01/09/23 22:24 Impressions Chest CTA 01/09/23 21:59 Exam(s): CTA CHEST IV Amt: 112 ml optiray 320 EXAM: CT Angiography Chest With Intravenous Contrast CLINICAL HISTORY: Reason for exam: Tachy, Hx Breast Ca. TECHNIQUE: Axial computed tomographic angiography images of the chest with intravenous contrast. CTDI is 15.8 mGy and DLP is 502.2 mGy-cm. Automated exposure control was utilized for the study. A dose lowering technique was utilized adhering to the principles of ALARA. MIP reconstructed images were created and reviewed. COMPARISON: No relevant prior studies available. FINDINGS: Pulmonary arteries: Unremarkable. No pulmonary embolism. Aorta: No acute findings. No thoracic aortic aneurysm. Lungs: There is mild to moderate peribronchial thickening of the central and peripheral bronchi. No mass. No consolidation. Pleural space: Unremarkable. No significant effusion. No pneumothorax. Heart: Unremarkable. No cardiomegaly. No significant pericardial effusion. No evidence of RV dysfunction. Bones/joints: No acute fracture. No dislocation. Soft tissues: Splenomegaly. Hepatic steatosis. Status post left mastectomy with expected postsurgical changes. There is a right subclavian approach Port-A-Cath in the right chest wall. Lymph nodes: Prominent mediastinal and hilar left nodes. IMPRESSION: No evidence of pulmonary emboli. Findings concerning for bronchitis, which may be of infectious or inflammatory etiologies. Prominent mediastinal and hilar left nodes. No consolidation. Splenomegaly. Hepatic steatosis. Status post left mastectomy with expected postsurgical changes. Electronically signed by: Dari Hernandez MD 01/10/23 00:15 AM Abdomen/Pelvis CT 01/09/23 23:21 Exam(s): CT ABDOMEN + PELVIS With Contrast IV Amt: 112 ml optiray 320 EXAM: CT Abdomen and Pelvis With Intravenous Contrast CLINICAL HISTORY: Reason for exam: Sepsis, cancer pt, elevated lft's. TECHNIQUE: Axial computed tomography images of the abdomen and pelvis with intravenous contrast. CTDI is 10.75 mGy and DLP is 529.73 mGy-cm. Automated exposure control was utilized for the study. A dose lowering technique was utilized adhering to the principles of ALARA. CONTRAST: Patient received 112 ml optiray 320 of IV contrast COMPARISON: Comparison made to prior CT scan of abdomen pelvis from November 16, 2021. FINDINGS: Lung bases: Unremarkable. No mass. No consolidation. ABDOMEN: Liver: Hepatic steatosis. No mass. Gallbladder and bile ducts: Unremarkable. No calcified stones. No ductal dilation. Pancreas: Unremarkable. No mass. No ductal dilation. Spleen: Splenomegaly. Adrenals: Unremarkable. No mass. Kidneys and ureters: Unremarkable. No solid mass. No hydronephrosis. Stomach and bowel: There is thickening and edema of the gastric antrum. PELVIS: Appendix: No findings to suggest acute appendicitis. Bladder: Unremarkable. No mass. Reproductive: Unremarkable as visualized. ABDOMEN and PELVIS: Intraperitoneal space: Unremarkable. No free air. No significant fluid collection. Bones/joints: There is a single sclerotic lesion within the L1 vertebral body. No acute fracture. No dislocation. Soft tissues: Unremarkable. Vasculature: Unremarkable. No abdominal aortic aneurysm. Lymph nodes: Unremarkable. No enlarged lymph nodes. IMPRESSION: Findings concerning for gastritis. Splenomegaly. Hepatic steatosis. Electronically signed by: Dari Hernandez MD 01/10/23 00:20 AM Elbow X-Ray 01/11/23 15:51 RIGHT ELBOW 3 VIEWS CLINICAL HISTORY: Right elbow pain. FINDINGS: 3 views of the right elbow are obtained. No prior studies are available for comparison at the time of dictation. The skeletal structures are well mineralized. No fracture is seen. The joint spaces are maintained. There is no joint effusion. Mild dorsal soft tissue swelling is observed. IMPRESSION: Mild dorsal soft tissue swelling but no acute bony abnormality identified. Electronically signed by: Edgardo Olsen M.D. 01/11/2023 4:11 PM
--- NOTE | 2023-01-11 16:13 | XRay Report ---
RIGHT ELBOW 3 VIEWS CLINICAL HISTORY: Right elbow pain. FINDINGS: 3 views of the right elbow are obtained. No prior studies are available for comparison at t he time of dictation. The skeletal structures are well mineralized. No fracture is seen. The joint sp aces are maintained. There is no joint effusion. Mild dorsal soft tissue swelling is observed. IMPRESSION: Mild dorsal soft tissue swelling but no acute bony abnormality identified. Electronically signed by: Edgardo Olsen M.D. 01/11/2023 4:11 PM
--- NOTE | 2023-01-11 17:51 | Ultrasound Report ---
ULTRASOUND RIGHT BREAST LIMITED CLINICAL HISTORY: Right breast erythema. COMPARISON STUDY: Ultrasound of the breasts dated 10/25/2021. FINDINGS: Real-time grayscale and color flow sonography of the right breast is performed. The patient is status post right mastectomy with a breast implant in place. Mild subcutaneous soft tissue edema is identified the indicated site of interest. No organized/drainable fluid collection is seen. There is no significant hyperemia on color imaging. IMPRESSION: 1. Mild subcutaneous soft tissue edema there is seen at the site of interest with no organized/draina ble fluid collection identified. 2. Note that this does not constitute a dedicated cancer screening examination. Electronically signed by: Edgardo Olsen M.D. 01/11/2023 5:50 PM
--- NOTE | 2023-01-11 18:40 | Hospitalist Progress Note ---
Date of Service January 11, 2023 Assessment & Plan (1) Lactic acidosis: Plan: Patient presents to ED with complaints of sustained palpitations has been present over the past 2 days. Cardiac evaluation is without recommendation for invasive or increased risk assessment testing Patient also found to have elevated lactic acid of 3.1 in the ED. Presently on chemotherapy regimen for invasive ductal breast cancer patient is immunosuppressed Has transaminitis without elevation of bilirubin, this can be a reaction to Kadcyla chemotherapy for breast cancer also worsened by likely sepsis and strep bacteremia this is improved Regarding her sepsis and bacteremia preliminarily i group B strep transition to ceftriaxone Mediport removed based upon cultures Likely will need PICC line placed 1 blood cultures are negative for 48 hours Prescription given to case management for home infusion therapy of ceftriaxone for a duration of 2 weeks Additional areas of what appears to be cellulitis could be right elbow and possibly chest wall these need to be evaluated. Orthopedics did evaluate elbow and feels this is superficial cellulitis (2) Palpitations: Plan: Patient presents with complaints of palpitations over the past 2 days Initial high sensitive troponin 25.7. No acute ST changes reported in ED echocardiography is without remark cardiology feels no additional intervention is required Patient also presently on levothyroxine and Cytomel for thyroid supplementation. Check TSH level Patient also takes thyronine that is [id number] thyroid supplementation that could interfere with the thyroid function. tsh in the ER is within normal range (3) Hyponatremia: Plan: Resolved patient has been persistently hypokalemic we will provide oral supplementation (4) Malignant neoplasm of lower-outer quadrant of left breast of female, estrogen receptor positive: Plan: Patient diagnosed with invasive ductal breast cancer presently on Kadcyla and anastrozole Zoladex combination chemotherapy regimen Patient reported to be ER/SD and HER2 positive Followed by Dr. lyn and presently on chemotherapy after Mediport is removed Dr. Lyn feels she can complete her chemotherapy through the PICC line to be placed for antibiotic therapy Admission and Anticipated Discharge Date Admission Date: January 10, 2023 Subjective Patient not any more symptomatic palpitations. She is found to have group B strep bacteremia. Concerns with some redness of her elbow her right breast and her chest wall and general it seems that the blood culture that turns positive was drawn from her Mediport and arrangements are being made for Mediport removal Overall she feels improved Physical Exam Physical Exam: Patient had some progressive discoloration to her chest wall this is blanching and difficult to tell whether its a rash or even postradiation treatment changes. She has some redness to her right lateral elbow near the insertion of her triceps and also her right breast. 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 Card exam is regular without murmurs there is no peripheral stigmata of endocarditis Lungs are clear Results & Data Results & Data Vital Signs (Past 12 Hours) Vital Signs Temp Pulse Resp BP Pulse Ox O2 Del Method 01/11/23 15:46 99.1 F 94 H 16 105/70 95 Room Air 01/11/23 11:12 98.6 F 92 H 18 99/67 L 95 Room Air 01/11/23 08:10 100.1 F H 18 108/68 96 Room Air Laboratory Results Reviewed CBC Reviewed chemistry Reviewed liver function test Personally discussed case with infectious disease Personally this case with general surgery PG Care Time/CCT Total # of Minutes Spent Total Time Spent with Patient: Total time spent is greater than 50% in coordination of care (as documented) at patient's floor/unit and/or counseling patient: Coding Level of Care Code 35641 SUB INP/OBS CARE 3/50MIN Diagnoses Lactic acidosis E87.20 Palpitations R00.2 Hyponatremia E87.1 Malignant neoplasm of lower-outer quadrant of left breast of female, estrogen receptor positive C50.512; Z17.0
[2023-01-11] MEDS ORDERED: POTASSIUM CHLORIDE CRTAB 20 MEQ TABCR PO STA (18:51)
[2023-01-11] MEDS: MELATONIN 3 MG TAB PO PRN (22:39)
[2023-01-12 06:16] LABS: Hematocrit (blood only) 37.1 % (37.0-47.0); Hemoglobin 12.4 g/dl (12.0-16.0); Mean Corpuscular Hemoglobin 28.8 pg (25.0-34.0); Mean Corpuscular Hgb Conc 33.4 g/dL (32.0-36.0); Mean Corpuscular Volume 86.3 fL (80.0-100.0); Mean Platelet Volume 9.7 fL (9.4-12.4); Platelet Count 111 K/uL (130-400); RDW Coefficient of Variation 14.9 % (11.5-14.5); RDW Standard Deviation 47.8 fL (36.4-46.3); White Blood Count 5.31 K/ul (4.8-10.8)
[2023-01-12] MEDS: LIOTHYRONINE SODIUM 5 MCG TAB PO SCH (06:20)
[2023-01-12] MEDS: LEVOTHYROXINE SODIUM 100 MCG TABLET PO SCH (06:20)
[2023-01-12 06:30] LABS: Albumin Globulin Ratio 0.8 (0.9-2); Albumin Level 3.4 gm/dl (3.4-5.0); BUN Creatinine Ratio 11.3 (10-20); Bilirubin,Total 0.4 mg/dl (0.2-1.0); Calcium 9.5 mg/dl (8.6-10.3); Creatinine Clr Calc Pharmacy 85.2 ml/min; Est GFR (African American) 118.4 ml/min; Est GFR (Non-African American) 102.1 ml/min; Globulin 4.3 gm/dl (2.5-4.0); Potassium 3.7 mmol/L (3.5-5.1); Total Protein 7.7 gm/dl (6.0-8.3)
--- NOTE | 2023-01-12 07:16 | History & Physical Bridge Note ---
Date of Service January 12, 2023 History & Physical Bridge Note I have examined the patient, reviewed the History & Physical and in the interval since the performance of the History & Physical I have noted the following changes of clinical significance: imaging reveals no breast abcess to drain. if redness/infectious process persists will need seen by Plastic Surgery. Her plastic surgeons are in Day.
--- NOTE | 2023-01-12 08:06 | Anesthesiology Consultation ---
Date of Service January 12, 2023 Assessment & Plan Chart Review Chart Review: Acceptable Risk for Surgery and Patient NOT seen in Pre Admission Testing Consults Requested none ASA ASA3 Proposed Anesthesia Anesthesia Type: MAC History Surgery Operation Date: 01/12/23 07:30 Proposed Procedures p Monica Gunter - Jerome Hsu, Height/Weight Height: 5 ft 2 in Weight: 61.1 kg Allergies Allergy/AdvReac Type Severity Reaction Status Date / Time animal dander Allergy Intermediate NASAL Verified 01/09/23 22:50 CONGESTION house dust AdvReac Intermediate NASAL Verified 01/09/23 22:50 CONGESTION Medications Home Medications Medication Instructions Recorded Confirmed Last Taken venlafaxine 150 mg 150 mg PO QAM 02/06/19 01/09/23 01/09/23 capsule,extended release 24 hr albuterol sulfate 90 mcg/actuation 2 puffs inhalation Q4H PRN 02/08/20 01/09/23 Unknown aerosol inhaler shortness of breath or wheezing #1 g cholecalciferol (vitamin D3) 125 5,000 units PO DAILY 02/08/20 01/09/23 01/09/23 mcg (5,000 unit) tablet meloxicam 15 mg tablet 15 mg PO DAILY PRN pain #30 tabs 02/08/20 01/09/23 11/18/21 15:00 AMINO ACID SUPREME 1 tab PO QAM 12/29/20 01/09/23 01/09/23 YOLANDE MAG 1 tab PO QAM 12/29/20 01/09/23 01/09/23 PROBIOTIC SUPREME 1 tab PO QAM 12/29/20 01/09/23 01/09/23 THYROMIN 1 tab PO QAM 12/29/20 01/09/23 01/09/23 cetirizine 10 mg tablet 10 mg PO DAILY 12/29/20 01/09/23 01/09/23 sertraline 50 mg tablet 75 mg PO QAM 11/07/21 01/09/23 01/09/23 medical marijuana 1 dose inhalation DIRECTED PRN 03/19/22 01/09/23 Unknown NEEDED iqecfljosc-[id number]-[id number] 1 tab PO Q4H PRN migraine headache 04/24/22 01/09/23 Unknown 50 mg-325 mg-40 mg tablet loratadine 10 mg tablet (Claritin) 10 mg PO DAILY 04/24/22 01/09/23 01/09/23 pantoprazole 40 mg tablet,delayed 40 mg PO DAILY 04/24/22 01/09/23 01/09/23 release anastrozole 1 mg tablet 1 mg PO DAILY 10/05/22 01/09/23 01/09/23 multivitamin 1 tab PO DAILY 10/05/22 01/09/23 01/09/23 ondansetron HCl 8 mg tablet 8 mg PO Q8H PRN NAUSEA/VOMITING 10/05/22 01/09/23 Unknown prochlorperazine maleate 10 mg 10 mg PO Q6H PRN NAUSEA/VOMITING 10/05/22 01/09/23 Unknown tablet (Compazine) sennosides 8.6 mg tablet (Senokot) 8.6 mg PO DAILY 10/05/22 01/09/23 01/09/23 levothyroxine 100 mcg tablet 100 mcg PO DAILY #30 tabs 12/19/22 01/09/23 01/09/23 liothyronine 5 mcg tablet 5 mcg PO QAM #90 tabs 01/08/23 01/09/23 01/09/23 goserelin 3.6 mg subcutaneous 0 mg subcut MONTHLY 01/09/23 01/09/23 Unknown implant (Zoladex) Active Medications Generic Name Dose Route Start Last Admin Trade Name Ryneq PRN Reason Stop Dose Admin Acetaminophen 650 mg 01/10/23 02:19 01/11/23 17:37 Acetaminophen 325 Mg Tab PO 02/09/23 02:18 650 mg Q4H PRN Administration Pain or Fever Anastrozole 1 mg 01/10/23 09:00 01/11/23 08:34 Anastrozole 1 Mg Tab PO 02/09/23 08:59 1 mg DAILY LES Administration Heparin Sodium (Porcine) 5,000 units 01/10/23 09:00 01/11/23 20:02 Heparin Sod 5,000 Unit/0.5 Ml Vial SQ 02/09/23 08:59 5,000 units Q12 LES Administration Ceftriaxone Sodium 2,000 mg/ 70 mls @ 140 mls/hr 01/11/23 11:00 01/11/23 11:52 Dextrose IV 01/25/23 10:59 Infused Q24H LES Infusion Lactobacillus Acidophilus 2 cap 01/10/23 09:00 01/11/23 08:36 Advanced Probiotic 1250 Mg Capsule PO 02/09/23 08:59 2 cap QAM LES Administration Levothyroxine Sodium 100 mcg 01/10/23 06:30 01/12/23 06:20 Levothyroxine Sodium 100 Mcg Tablet PO 02/09/23 06:29 100 mcg DAILYBB LES Administration Liothyronine Sodium 5 mcg 01/10/23 06:30 01/12/23 06:20 Liothyronine Sodium 5 Mcg Tab PO 02/09/23 06:29 5 mcg DAILYBB LES Administration Melatonin 6 mg 01/11/23 22:18 01/11/23 22:39 Melatonin 3 Mg Tab PO 02/10/23 22:17 6 mg HS PRN Administration Sleep Multivitamins 1 tab 01/10/23 09:00 01/11/23 08:36 Multivitamin Tab PO 02/09/23 08:59 1 tab DAILY LES Administration Pantoprazole Sodium 40 mg 01/10/23 09:00 01/11/23 08:36 Pantoprazole 40 Mg Tab PO 02/09/23 08:59 40 mg DAILY LES Administration Sennosides 8.6 mg 01/10/23 09:00 01/11/23 08:37 Senna 8.6 Mg Tab PO 02/09/23 08:59 8.6 mg DAILY LES Administration Sertraline HCl 75 mg 01/10/23 09:00 01/11/23 08:37 Sertraline Hcl 50 Mg Tablet PO 02/09/23 08:59 75 mg QAM LES Administration Venlafaxine HCl 150 mg 01/10/23 09:00 01/11/23 08:38 Venlafaxine Hcl Xr 150 Mg Capxr PO 02/09/23 08:59 150 mg QAM LES Administration Vitamin D 5,000 units 01/10/23 09:00 01/11/23 08:35 Cholecalciferol 5,000 Units 125 Mcg Tab PO 02/09/23 08:59 5,000 units DAILY LES Administration Past Medical History Medical History Allergic rhinitis TAMERA positive mixed connective disorder Arthritis Depression, major DVT (deep venous thrombosis) Right subclavian 11/2021 Dysmetabolic syndrome X GERD without esophagitis Jagjit's thyroiditis Hiatal hernia Hypercholesterolemia Hyperlipidemia Hypothyroidism Irregular menstrual cycle Low back pain Migraine headache Multilevel degenerative disc disease Psoriasis Raynaud's disease Reactive airway disease Tinnitus Exercise / Class Metabolic Activity II 4-5 Yardwork/Stairs/Walk up hill Past Family History Family History Mother Hypertension Dyslipidemia Grandfather Cancer Colorectal cancer Grandfather (Maternal) Myocardial infarction Prostate cancer Heart disease Stroke Father Hypertension Grandfather (Paternal) Pancreatic cancer Other Environmental allergies No family history of adverse response to anesthesia No family history of bleeding disorder Denies family history of Ovarian cancer Breast cancer Past Surgical History Surgical History H/O bilateral mastectomy (04/03/22) w/ reconstruction H/O dilation and curettage 2010 History of History of eye surgery History of wisdom tooth extraction Port-A-Cath in place (11/20/21) Port placement with fluoroscopy. Dr. Hebert 11/20/2021 Past Anesthesia History No Hx of Anesthesia Complications and No Family Hx of Anesthesia Complications History of PONV No Hx of PONV and No Hx of Motion Sickness Social History Smoking Status: Never smoker Do You Dip or Chew Tobacco: No Hx Alcohol Use: No (no alcohol for year and a half) Alcohol type: wine alcohol intake frequency: holidays/special occasions only Hx Substance Use: No substance use type: marijuana Last Used Substance Other:: a week ago Physical Exam Vital Signs Last Vital Signs Temp 36.7 C 01/12/23 03:43 Pulse 98 H 01/12/23 03:43 Resp 18 01/12/23 03:43 BP 114/83 01/12/23 03:43 Pulse Ox 96 01/12/23 03:43 O2 Del Method Room Air 01/12/23 03:43 Testing Laboratory Results 01/12/23 05:58 01/12/23 05:58 PT 10.6 Seconds (9.0-12.0) 01/09/23 22:24 INR 1.0 (0.9-1.1) 01/09/23 22:24 APTT 29.4 Seconds (21.0-31.0) 01/09/23 22:24 Urine Color Yellow 01/10/23 00:50 Urine Appearance Clear (Clear) 01/10/23 00:50 Urine pH 7.5 (4.5-7.5) 01/10/23 00:50 Ur Specific Pritchett > 1.045 (1.000-1.030) H 01/10/23 00:50 Urine Protein 2+ (Negative) H 01/10/23 00:50 Urine Glucose (UA) Negative (Negative) 01/10/23 00:50 Urine Ketones Negative (Negative) 01/10/23 00:50 Urine Nitrite Negative (Negative) 01/10/23 00:50 Ur Leukocyte Esterase Negative (Negative) 01/10/23 00:50 Urine WBC (Auto) 1-5 /hpf (0-5) 01/10/23 00:50 Urine RBC (Auto) 10-30 /hpf (0-4) H 01/10/23 00:50 U Hyaline Cast (Auto) 1-5 /lpf (0-5) 01/10/23 00:50 U Epithel Cells (Auto) 5-10 /lpf (0-5) H 01/10/23 00:50 Urine Bacteria (Auto) Negative (Negative) 01/10/23 00:50 01/11/23 06:48 Aerobic Blood Culture - Preliminary Blood No growth in Aerobic bottle after 24 hours. Anaerobic Blood Culture - Preliminary No growth in Anaerobic bottle after 24 hours. 01/09/23 22:24 Aerobic Blood Culture - Preliminary Blood Group G Beta Strep Anaerobic Blood Culture - Preliminary Group G Beta Strep 01/10/23 00:13 Aerobic Blood Culture - Preliminary Blood No growth in Aerobic bottle after 48 hours. Anaerobic Blood Culture - Preliminary No growth in Anaerobic bottle after 48 hours. Electrocardiogram Date: 01/09/23 Findings: + NSST changes and + ST @ (@ 134) Echocardiogram Date: 01/10/23 EF: 55% LV Function: normal Other Findings: + LVH (mild) Valvular Disease: + MR (mild)
--- NOTE | 2023-01-12 08:11 | Hospitalist Progress Note ---
Date of Service January 12, 2023 Assessment & Plan (1) Cellulitis of right elbow: Plan: Seen by orthopedics yesterday and again today. Cellulitis as demonstrated by less erythema as defined by line of demarcation. Patient is afebrile Streptococcal bacteremia as below. Patient does have a Mediport. This was successfully removed by surgery today Continue to monitor for erythema and warmth (2) Streptococcal bacteremia: Plan: Mediport removal by general surgery. Tip was sent for culture and sensitivity Patient continues on ceftriaxone 2 g daily (day #3) Bacteremia with group G beta strep from blood cultures 01/09/2023 Symptomatically patient is improving. Await culture from tip of central catheter Infectious disease consulted -recommend continuing with ceftriaxone (3) Sepsis: Plan: Group G beta strep bacteremia Patient is now improving Afebrile Day #3 of IV antibiotics (4) Tachycardia: Plan: Patient continues to have some runs of supraventricular tachycardia No chest pain or tightness Most likely secondary to sepsis and bacteremia Cardiology consulted. Advised against beta-blockers at this time Continue to monitor on telemetry (5) Abnormal LFTs: Plan: Most likely secondary to chemotherapy using Kadcyla Continue to trend May need dose reduction of chemotherapy for next treatment. Will defer to oncology (6) Lactic acidosis: Plan: Resolved. Secondary to bacteremia Continue IV antibiotics (7) Malignant neoplasm of lower-outer quadrant of left breast of female, estrogen receptor positive: Plan: Currently follows with oncology Triple positive breast cancer for which she is currently on adjuvant therapy with Kadcyla infusions IV every 3 weeks (last received on 12/18/2022), she is also on AI plus ovarian suppression. Mediport removal for bacteremia History of inflected left implant with removal of left implant Consider plastic surgery consultation as an outpatient after treatment for bacteremia (8) Depression, major: Plan: Appropriate in the setting of multiple comorbidities including malignancy Affect is appropriate today. Patient with very positive outlook Continue venlafaxine (9) Jagjit's thyroiditis: Plan: Continue with levothyroxine 100 mcg daily Free T4 is 1.38 Continue outpatient management Admission and Anticipated Discharge Date Admission Date: January 10, 2023 Subjective Attending: Dr. Syed This is a 47-year-old female with past medical history significant history of invasive ductal breast cancer on active chemotherapy regimen with anastrozole and Zoladex, hypothyroidism on thyroid replacement therapy, DVT of right subclavian vein treated with a 6-month course of Eliquis who presened to the emergency department with complaints of intermittent palpitation. Patient was admitted with elevated lactic acid levels and was given vancomycin and Zosyn in the emergency department. Blood cultures on 01/09/2023 revealed group G beta strep. Currently there is no leukocytosis and lactic acid has returned to normal values. C-reactive protein remained elevated yesterday at 15.51. Patient also has transaminitis with AST of 80, ALT of 122, and alkaline phosphatase of 479. Currently patient is on ceftriaxone 2 g daily. Previous history of DVT of the right subclavian vein. This was treated with Eliquis for 6 months. Chronic anticoagulation has been stopped. Patient follows with Dr. Lyn. Patient also appears to have an area of cellulitis of the right elbow. Orthopedics was consulted and patient was seen by Dr. Brown. At this time continue with antibiotic treatment. No indication for surgical intervention right now. Patient reports no significant discomfort from Mediport removal. She reports that she has 2 more courses of chemotherapy and has talked to Dr. Quiles and will have both of these done through peripheral IV. Still some redness and tenderness around right elbow but patient states is significantly improved. She denies any fever, chills, sweats, rigors. Appetite is improving. No other acute complaints at this time. Review of Systems Review of Systems: A total of 10 systems was reviewed and is negative other than as listed in the HPI Physical Exam Physical Exam: GENERAL : No acute distress EYES: No icterus, gaze conjugate NOSE: No evidence of epistaxis MOUTH: No lesions or candidiasis NECK: Supple LUNGS: CTA B/L, no wheezes, rales or rhonchi CHEST: Dressing dry and intact at area of right subclavian Mediport removal. No further rash on chest. HEART: Regular, rate controlled ABDOMEN: Soft, NT, ND, BS Present EXTREMITIES: No LE edema, pedal pulses intact. Erythema is well within the line of demarcation at elbow. No warmth to palpation but area is continuing to remain tender. NEURO: A&OX3 Results & Data Results & Data Vital Signs (Past 12 Hours) Vital Signs Temp Pulse Pulse Resp BP Pulse Ox O2 Del Method 01/12/23 03:43 36.7 C 98 H 18 114/83 96 Room Air 01/11/23 22:00 88 01/11/23 22:00 36.9 C 83 18 110/71 97 Room Air 01/11/23 20:36 36.6 C 88 18 103/60 98 Room Air Critical Care Results & Data Vital Signs (Past 12 Hours) Vital Signs Temp Pulse Pulse Resp BP Pulse Ox O2 Del Method 01/12/23 03:43 36.7 C 98 H 18 114/83 96 Room Air 01/11/23 22:00 88 01/11/23 22:00 36.9 C 83 18 110/71 97 Room Air 01/11/23 20:36 36.6 C 88 18 103/60 98 Room Air Lab & Micro Results (Past 24 Hours) RBC 4.30 M/uL (4.20-5.40) 01/12/23 WBC 5.31 K/ul (4.8-10.8) 01/12/23 Hgb 12.4 g/dl (12.0-16.0) 01/12/23 Hct 37.1 % (37.0-47.0) 01/12/23 MCV 86.3 fL (80.0-100.0) 01/12/23 MCH 28.8 pg (25.0-34.0) 01/12/23 MCHC 33.4 g/dL (32.0-36.0) 01/12/23 RDW Standard Deviation 47.8 fL (36.4-46.3) H 01/12/23 RDW Coefficient of Variation 14.9 % (11.5-14.5) H 01/12/23 Plt Count 111 K/uL (130-400) L 01/12/23 MPV 9.7 fL (9.4-12.4) 01/12/23 Na 138 mmol/L (136-145) 01/12/23 K 3.7 mmol/L (3.5-5.1) 01/12/23 Cl 102 mmol/L (98-107) 01/12/23 CO2 29 mmol/L (21-32) 01/12/23 Anion Gap 7 (3-11) 01/12/23 BUN 8 mg/dl (6-23) 01/12/23 Creatinine 0.71 mg/dl (0.6-1.2) 01/12/23 Estimated GFR ( Amer) 118.4 ml/min 01/12/23 Estimated GFR (Non-Af Amer) 102.1 ml/min 01/12/23 BUN/Creatinine Ratio 11.3 (10-20) 01/12/23 Glu 92 mg/dl (70-99(Fasting)) 01/12/23 Ca 9.5 mg/dl (8.6-10.3) 01/12/23 Total Bilirubin 0.4 mg/dl (0.2-1.0) 01/12/23 AST 80 U/L (13-39) H 01/12/23 ALT 122 U/L (7-52) H 01/12/23 Alkaline Phosphatase 479 U/L (34-104) H 01/12/23 TP 7.7 gm/dl (6.0-8.3) 01/12/23 Albumin 3.4 gm/dl (3.4-5.0) 01/12/23 Globulin 4.3 gm/dl (2.5-4.0) H 01/12/23 Albumin/Globulin Ratio 0.8 (0.9-2) L 01/12/23 Calcium Level 9.5 mg/dl (8.6-10.3) 01/12/23 05:58 Microbiology 01/09/23 22:24 Aerobic Blood Culture - Final Blood Group G Beta Strep Anaerobic Blood Culture - Final Group G Beta Strep 01/11/23 06:48 Aerobic Blood Culture - Preliminary Blood No growth in Aerobic bottle after 24 hours. Anaerobic Blood Culture - Preliminary No growth in Anaerobic bottle after 24 hours. 01/10/23 00:13 Aerobic Blood Culture - Preliminary Blood No growth in Aerobic bottle after 48 hours. Anaerobic Blood Culture - Preliminary No growth in Anaerobic bottle after 48 hours. Diagnostic Findings (Past 24 Hours) Breast Ultrasound 01/11/23 15:32 ULTRASOUND RIGHT BREAST LIMITED CLINICAL HISTORY: Right breast erythema. COMPARISON STUDY: Ultrasound of the breasts dated 10/25/2021. FINDINGS: Real-time grayscale and color flow sonography of the right breast is performed. The patient is status post right mastectomy with a breast implant in place. Mild subcutaneous soft tissue edema is identified the indicated site of interest. No organized/drainable fluid collection is seen. There is no significant hyperemia on color imaging. IMPRESSION: 1. Mild subcutaneous soft tissue edema there is seen at the site of interest with no organized/drainable fluid collection identified. 2. Note that this does not constitute a dedicated cancer screening examination. Electronically signed by: Edgardo Olsen M.D. 01/11/2023 5:50 PM Elbow X-Ray 01/11/23 15:51 RIGHT ELBOW 3 VIEWS CLINICAL HISTORY: Right elbow pain. FINDINGS: 3 views of the right elbow are obtained. No prior studies are available for comparison at the time of dictation. The skeletal structures are well mineralized. No fracture is seen. The joint spaces are maintained. There is no joint effusion. Mild dorsal soft tissue swelling is observed. IMPRESSION: Mild dorsal soft tissue swelling but no acute bony abnormality identified. Electronically signed by: Edgardo Olsen M.D. 01/11/2023 4:11 PM I & O Totals 24 Hours 01/11/23 01/12/23 01/13/23 06:59 06:59 06:59 Intake Total 3919.5 / 3919.5 550 / 550 Output Total 6101 / 6101 4150 / 4150 Balance -2181.5 / -2181.5 -3600 / -3600 Cumulative 01/09/23 21:41 thru 01/12/23 08:06 Intake Total 6979.5 Output Total 22618 Balance -4121.5 RT Ventilator Mngmt (Last Documented) Ventilator Ordered Settings Respiratory Rate 18 01/12/23 03:43 Ventilator - PT Measurements Respiratory Rate 18 PG Care Time/CCT Total # of Minutes Spent Total Time Spent with Patient: Total time spent is greater than 50% in coordination of care (as documented) at patient's floor/unit and/or counseling patient:20 Coding Level of Care Code 44555 SUB INP/OBS CARE /25MIN Diagnoses Cellulitis of right elbow L03.113 Streptococcal bacteremia R78.81; B95.5 Sepsis A41.9 Tachycardia R00.0 Abnormal LFTs R79.89 Lactic acidosis E87.20 Malignant neoplasm of lower-outer quadrant of left breast of female, estrogen receptor positive C50.512; Z17.0 Depression, major F32.9 Jagjit's thyroiditis E06.3 Time Spent (min) 25
[2023-01-12] MEDS ORDERED: BUPIVACAINE/EPINEPHRINE 0.5% MPF 1:200,000 30 ML VIAL ONE (08:14)
[2023-01-12] MEDS ORDERED: ONDANSETRON INJ 2 MG/ML 2 ML VIAL IV PRN (08:48)
[2023-01-12] MEDS ORDERED: ATROPINE SULFATE 0.1 MG/ML 10ML SYR IV PRN (08:48)
[2023-01-12] MEDS ORDERED: FLUMAZENIL 0.1 MG/1 ML 10 ML VIAL IV PRN (08:48)
[2023-01-12] MEDS ORDERED: fentaNYL citrate PF 100 MCG/2 ML VIAL IV PRN (08:48)
[2023-01-12] MEDS ORDERED: NALOXONE HCL 0.4 MG/1 ML VIAL/CARP IV PRN (08:48)
[2023-01-12] MEDS ORDERED: PROMETHAZINE HCL 12.5 MG in SODIUM CHLORIDE 0.9% 50 ML IV PRN (08:48)
[2023-01-12] MEDS ORDERED: ePHEDrine sulfate 50 MG/ML AMP IV PRN (08:48)
[2023-01-12] MEDS ORDERED: fentaNYL citrate PF 100 MCG/2 ML VIAL ONE (09:10)
[2023-01-12] MEDS ORDERED: LIDOCAINE 2% 2 ML VIAL/AMP(20MG/ML) INFIL ONE (09:10)
[2023-01-12] MEDS ORDERED: MIDAZOLAM HCL 1 MG/ML 2ML VIAL ONE (09:10)
[2023-01-12] MEDS ORDERED: PROPOFOL IV EMULSION 10 MG/ML 20 ML VIAL IV ONE (09:10)
--- NOTE | 2023-01-12 09:52 | Operative Report ---
PG Post Operative Report Pre & Post Diagnosis Operation Date: 01/12/23 07:30 Pre-Op Diagnosis: Streptococcal bacteremia Post-Op Diagnosis: Streptococcal bacteremia I identified the patient and participated in the time-out.: Yes Procedure Operation Date: 01/12/23 07:30 Actual Procedures p Right subclavian Mediport Removal(Right) - Jerome Hsu DO Surgeon Jerome Hsu DO Suture Polisher Meci, MS2 Estimated Blood Loss 3 Findings Consistent with Post-Op Diagnosis Specimens portion of catheter for culture Description of Procedure After informed consent was obtained the patient was taken the operating room and placed in supine position. IV sedation was administered by anesthesia and titrated to effect. The upper chest was sterilely prepped and draped in usual fashion. I began by using Marcaine with epinephrine to create a skin wheal around the palpable right subclavian access port. A horizontal incision was made directly over it. Cautery was used to come down through the soft tissue as well as to open the capsule. There were 3 Prolene sutures which I cut using Metzenbaum scissors. I was then able to easily remove the catheter without difficulty. It appeared to be intact. The distal 2 to 3 cm were cut and sent for culture. All of the visible sutures were removed. The wound was thoroughly irrigated and closed in a single layer using 3-0 Prolene in simple interrupted fashion. A sterile dressing was applied. The patient was awakened and transferred to recovery in stable condition I attest to the content of the Intraoperative Record and any orders documented therein. Any exceptions are noted below.
--- NOTE | 2023-01-12 10:17 | Anesthesiology Progress Note ---
Date of Service January 12, 2023 Anesthesia Post Procedure Vital Signs Vital Signs: Temp Pulse Pulse Resp BP Pulse Ox O2 Del Method 01/12/23 10:05 84 20 103/68 94 Room Air 01/12/23 09:55 86 17 110/87 97 Room Air 01/12/23 09:49 36.1 C L 87 21 97/67 L 96 Oxymask 01/12/23 08:12 36.8 C 83 17 107/66 98 Room Air 01/12/23 03:43 36.7 C 98 H 18 114/83 96 Room Air 01/11/23 22:00 88 01/11/23 22:00 36.9 C 83 18 110/71 97 Room Air 01/11/23 20:36 36.6 C 88 18 103/60 98 Room Air 01/11/23 15:46 37.3 C 94 H 16 105/70 95 Room Air 01/11/23 11:12 37 C 92 H 18 99/67 L 95 Room Air O2 Flow Rate 01/12/23 10:05 01/12/23 09:55 01/12/23 09:49 6 01/12/23 08:12 01/12/23 03:43 01/11/23 22:00 01/11/23 22:00 01/11/23 20:36 01/11/23 15:46 01/11/23 11:12 Pain Intensity Head: Pain Intensity: 7 Transfer of Care Handoff Completed per policy Notes Mental Status: alert / awake / arousable Patient Amnestic to Procedure: Yes Nausea / Vomiting: adequately controlled Pain: adequately controlled Airway Patency, RR, SpO2: stable & adequate BP & HR: stable & adequate Hydration State: stable & adequate Anesthetic Complications: no major complications apparent
[2023-01-12] MEDS: ANASTROZOLE 1 MG TAB PO SCH (10:44)
[2023-01-12] MEDS: HEPARIN SOD 5,000 UNIT/0.5 ML VIAL SQ SCH ×2 (10:45→21:05)
[2023-01-12] MEDS: CHOLECALCIFEROL 5,000 UNITS 125 MCG TAB PO SCH (10:45)
[2023-01-12] MEDS: MULTIVITAMIN TAB PO SCH (10:46)
[2023-01-12] MEDS: ADVANCED PROBIOTIC 1250 MG CAPSULE PO SCH (10:46)
[2023-01-12] MEDS: SENNA 8.6 MG TAB PO SCH (10:47)
[2023-01-12] MEDS: PANTOprazole 40 MG TAB PO SCH (10:47)
[2023-01-12] MEDS: VENLAFAXINE HCL XR 150 MG CAPXR PO SCH (10:48)
[2023-01-12] MEDS: SERTRALINE HCL 50 MG TABLET PO SCH (10:48)
[2023-01-12] MEDS: cefTRIAXone SODIUM 2,000 MG in DEXTROSE 5% 50 ML IV SCH (10:51)
--- NOTE | 2023-01-12 11:05 | Orthopedic Progress Note ---
Date of Service January 12, 2023 Assessment & Plan (1) Cellulitis of right elbow: Plan: 47 year old female with right elbow soft tissue swelling and erythema likely cellulitis, unlikely olecranon bursitis Improving line of demarcation yesterday's erythema, is showing decrease affected area. Will continue to monitor. Nothing to drain. Continue IV abx and will defer to ID. WBAT and freely move her elbow as tolerated. RICE Continue care per primary service. Admission and Anticipated Discharge Date Admission Date: January 10, 2023 Subjective Feeling a little better. Physical Exam Physical Exam: Just returned from OR or port removal RUE: Neurovascularly intact. Right elbow: She has decreased mild swelling and erythema noted over elbow, just slightly lateral to olecranon. She is tender to touch over that area, improved. There is no fluid filled bursa or fluctuance, or abscess appreciated. Patient has full active ROM of her elbow mostly pain free - she reports minimal pain towards the end of flexion. Results & Data Vital Signs (Past 12 Hours) Vital Signs Temp Pulse Resp BP Pulse Ox O2 Del Method O2 Flow Rate 01/12/23 10:05 84 20 103/68 94 Room Air 01/12/23 09:55 86 17 110/87 97 Room Air 01/12/23 10:15 36.3 C L 89 20 104/66 94 Room Air 01/12/23 09:49 36.1 C L 87 21 97/67 L 96 Oxymask 6 01/12/23 08:12 36.8 C 83 17 107/66 98 Room Air 01/12/23 03:43 36.7 C 98 H 18 114/83 96 Room Air Laboratory Results 01/12/23 01/12/23 Range/Units 05:58 05:58 WBC 5.31 (4.8-10.8) K/ul RBC 4.30 (4.20-5.40) M/uL Hgb 12.4 (12.0-16.0) g/dl Hct 37.1 (37.0-47.0) % MCV 86.3 (80.0-100.0) fL MCH 28.8 (25.0-34.0) pg MCHC 33.4 (32.0-36.0) g/dL RDW Std Deviation 47.8 H (36.4-46.3) fL RDW Coeff of Nichole 14.9 H (11.5-14.5) % Plt Count 111 L (130-400) K/uL MPV 9.7 (9.4-12.4) fL Sodium 138 (136-145) mmol/L Potassium 3.7 (3.5-5.1) mmol/L Chloride 102 (98-107) mmol/L Carbon Dioxide 29 (21-32) mmol/L Anion Gap 7 (3-11) BUN 8 (6-23) mg/dl Creatinine 0.71 (0.6-1.2) mg/dl Est Cr Clr Drug Dosing 85.2 ml/min Est GFR ( Amer) 118.4 ml/min Est GFR (Non-Af Amer) 102.1 ml/min BUN/Creatinine Ratio 11.3 (10-20) Glucose 92 (70-99(Fasting)) mg/dl Calcium 9.5 (8.6-10.3) mg/dl Total Bilirubin 0.4 (0.2-1.0) mg/dl AST 80 H (13-39) U/L ALT 122 H (7-52) U/L Alkaline Phosphatase 479 H (34-104) U/L Total Protein 7.7 (6.0-8.3) gm/dl Albumin 3.4 (3.4-5.0) gm/dl Globulin 4.3 H (2.5-4.0) gm/dl Albumin/Globulin Ratio 0.8 L (0.9-2)
[2023-01-12] MEDS: ACETAMINOPHEN 325 MG TAB PO PRN ×2 (15:53→21:04)
[2023-01-12] MEDS: MELATONIN 3 MG TAB PO PRN (21:04)
[2023-01-13] MEDS: ACETAMINOPHEN 325 MG TAB PO PRN ×5 (04:36→22:04)
[2023-01-13] MEDS: LEVOTHYROXINE SODIUM 100 MCG TABLET PO SCH (06:06)
[2023-01-13] MEDS: LIOTHYRONINE SODIUM 5 MCG TAB PO SCH (06:06)
[2023-01-13 06:28] LABS: Hematocrit (blood only) 36.4 % (37.0-47.0); Hemoglobin 12.5 g/dl (12.0-16.0); Mean Corpuscular Hemoglobin 29.1 pg (25.0-34.0); Mean Corpuscular Hgb Conc 34.3 g/dL (32.0-36.0); Mean Corpuscular Volume 84.7 fL (80.0-100.0); Mean Platelet Volume 9.5 fL (9.4-12.4); Platelet Count 148 K/uL (130-400); RDW Standard Deviation 45.9 fL (36.4-46.3); White Blood Count 5.25 K/ul (4.8-10.8)
[2023-01-13 06:41] LABS: Albumin Globulin Ratio 0.8 (0.9-2); Albumin Level 3.4 gm/dl (3.4-5.0); BUN Creatinine Ratio 15.9 (10-20); Bilirubin,Total 0.3 mg/dl (0.2-1.0); Calcium 9.3 mg/dl (8.6-10.3); Creatinine Clr Calc Pharmacy 88.9 ml/min; Est GFR (Non-African American) 104.4 ml/min; Globulin 4.4 gm/dl (2.5-4.0); Potassium 3.6 mmol/L (3.5-5.1); Total Protein 7.8 gm/dl (6.0-8.3)
[2023-01-13] MEDS: VENLAFAXINE HCL XR 150 MG CAPXR PO SCH (08:36)
[2023-01-13] MEDS: PANTOprazole 40 MG TAB PO SCH (08:36)
[2023-01-13] MEDS: CHOLECALCIFEROL 5,000 UNITS 125 MCG TAB PO SCH (08:36)
[2023-01-13] MEDS: MULTIVITAMIN TAB PO SCH (08:36)
[2023-01-13] MEDS: ADVANCED PROBIOTIC 1250 MG CAPSULE PO SCH (08:36)
[2023-01-13] MEDS: SENNA 8.6 MG TAB PO SCH (08:36)
[2023-01-13] MEDS: ANASTROZOLE 1 MG TAB PO SCH (08:36)
[2023-01-13] MEDS: SERTRALINE HCL 50 MG TABLET PO SCH (08:36)
[2023-01-13] MEDS: HEPARIN SOD 5,000 UNIT/0.5 ML VIAL SQ SCH ×2 (09:28→20:46)
--- NOTE | 2023-01-13 09:52 | Surgery Progress Note ---
Date of Service January 13, 2023 Assessment & Plan (1) Gram positive sepsis: Plan: Doing well. No further surgical needs at this point in time. Follow-up in the office in 10 to 14 days for suture removal. Admission and Anticipated Discharge Date Admission Date: January 10, 2023 Subjective As above. Feeling well. No complaints Physical Exam Physical Exam: Surgical site looks clean and dry with no drainage. Breast erythema improving Right elbow erythema improving Results & Data Vital Signs (Past 12 Hours) Vital Signs Temp Pulse Pulse Resp BP Pulse Ox O2 Del Method 01/13/23 07:43 36.6 C 90 17 107/74 95 Room Air 01/13/23 03:18 36.5 C 84 18 100/66 97 Room Air 01/12/23 21:59 90 01/12/23 23:16 36.8 C 88 18 101/67 96 Room Air PG Care Time/CCT Total # of Minutes Spent Total Time Spent with Patient: Total time spent is greater than 50% in coordination of care (as documented) at patient's floor/unit and/or counseling patient: Coding Level of Care Code 84657 Post Operative Follow-Up Diagnoses Gram positive sepsis A41.89
[2023-01-13] MEDS: cefTRIAXone SODIUM 2,000 MG in DEXTROSE 5% 50 ML IV SCH (11:05)
--- NOTE | 2023-01-13 11:30 | Orthopedic Progress Note ---
Date of Service January 13, 2023 Assessment & Plan (1) Cellulitis of right elbow: Plan: 47 year old female with right elbow soft tissue swelling and erythema likely cellulitis, unlikely olecranon bursitis Improving line of demarcation yesterday's erythema, is showing decrease affected area. Will continue to monitor. Nothing to drain. Continue abx and will defer to ID. WBAT and freely move her elbow as tolerated. RICE Continue care per primary service. Follow up as an out patient in Dr. Brown's office in 1-2 weeks. Admission and Anticipated Discharge Date Admission Date: January 10, 2023 Subjective Feeling better, feels near normal Review of Systems Review of Systems: All systems reviewed & are unremarkable except as noted in HPI & below Physical Exam Physical Exam: RUE: Neurovascularly intact. Right elbow: Near complete resolution of swelling and erythema noted over elbow, just slightly lateral to olecranon. Minimal tenderness to touch over that area, much improved. There is no fluid filled bursa or fluctuance, or abscess appreciated. Patient has full active ROM of her elbow pain free. Results & Data Vital Signs (Past 12 Hours) Vital Signs Temp Pulse Resp BP Pulse Ox O2 Del Method 01/13/23 07:43 36.6 C 90 17 107/74 95 Room Air 01/13/23 03:18 36.5 C 84 18 100/66 97 Room Air Laboratory Results 01/13/23 01/13/23 Range/Units 06:02 06:02 WBC 5.25 (4.8-10.8) K/ul RBC 4.30 (4.20-5.40) M/uL Hgb 12.5 (12.0-16.0) g/dl Hct 36.4 L (37.0-47.0) % MCV 84.7 (80.0-100.0) fL MCH 29.1 (25.0-34.0) pg MCHC 34.3 (32.0-36.0) g/dL RDW Std Deviation 45.9 (36.4-46.3) fL RDW Coeff of Nichole 15.0 H (11.5-14.5) % Plt Count 148 (130-400) K/uL MPV 9.5 (9.4-12.4) fL Sodium 139 (136-145) mmol/L Potassium 3.6 (3.5-5.1) mmol/L Chloride 102 (98-107) mmol/L Carbon Dioxide 29 (21-32) mmol/L Anion Gap 8 (3-11) BUN 11 (6-23) mg/dl Creatinine 0.69 (0.6-1.2) mg/dl Est Cr Clr Drug Dosing 88.9 ml/min Est GFR ( Amer) 121.0 ml/min Est GFR (Non-Af Amer) 104.4 ml/min BUN/Creatinine Ratio 15.9 (10-20) Glucose 112 H (70-99(Fasting)) mg/dl Calcium 9.3 (8.6-10.3) mg/dl Total Bilirubin 0.3 (0.2-1.0) mg/dl AST 70 H (13-39) U/L ALT 111 H (7-52) U/L Alkaline Phosphatase 630 H (34-104) U/L Total Protein 7.8 (6.0-8.3) gm/dl Albumin 3.4 (3.4-5.0) gm/dl Globulin 4.4 H (2.5-4.0) gm/dl Albumin/Globulin Ratio 0.8 L (0.9-2)
--- NOTE | 2023-01-13 13:22 | Hospitalist Progress Note ---
Date of Service January 13, 2023 Assessment & Plan (1) Cellulitis of right elbow: Plan: Much improved Orthopedics on board. Recommends follow-up in 1 to 2 weeks. Cellulitis almost resolved Patient is afebrile Streptococcal bacteremia as below. Patient does have a Mediport. This was successfully removed by surgery 01/12 Continue to monitor for erythema and warmth (2) Streptococcal bacteremia: Plan: Mediport removal by general surgery 01/12. Tip was sent for culture and sensitivity, preliminary group G beta strep Patient continues on ceftriaxone 2 g daily Bacteremia with group G beta strep from blood cultures 01/09/2023 Symptomatically patient is improving. Infectious disease consulted -recommend continuing with ceftriaxone TTE on 01/10 negative for vegetation (3) Sepsis: Plan: Group G beta strep bacteremia Patient is now improving Afebrile (4) Tachycardia: Plan: Patient continues to have some runs of supraventricular tachycardia No chest pain or tightness No sensation of palpitation anymore Most likely secondary to sepsis and bacteremia Cardiology advised against beta-blockers at this time Continue to monitor on telemetry (5) Abnormal LFTs: Plan: Most likely secondary to chemotherapy using Kadcyla Continue to trend May need dose reduction of chemotherapy for next treatment. Will defer to oncology (6) Lactic acidosis: Plan: Resolved. Secondary to bacteremia Continue IV antibiotics (7) Malignant neoplasm of lower-outer quadrant of left breast of female, estrogen receptor positive: Plan: Currently follows with oncology Triple positive breast cancer for which she is currently on adjuvant therapy with Kadcyla infusions IV every 3 weeks (last received on 12/18/2022), she is also on AI plus ovarian suppression. Mediport removed for bacteremia History of inflected left implant with removal of left implant Consider plastic surgery consultation as an outpatient after treatment for bacteremia (8) Depression, major: Plan: Appropriate in the setting of multiple comorbidities including malignancy Affect is appropriate today. Patient with very positive outlook Continue venlafaxine (9) Jagjit's thyroiditis: Plan: Continue with levothyroxine 100 mcg daily Free T4 is 1.38 Continue outpatient management Admission and Anticipated Discharge Date Admission Date: January 10, 2023 Subjective Patient feels better overall. Denies chest pain or shortness of breath. The right elbow feels well as well. Review of Systems Review of Systems: All systems reviewed & are unremarkable except as noted in Subjective Physical Exam Physical Exam: General: Awake, conversant Heart: S1, S2/regular rate and rhythm, no murmur rubs or gallops Lungs: Clear to auscultation bilaterally. Normal effort. Dressing on the right upper chest where the Mediport was. Abdomen: Soft/nontender/nondistended. No hepatosplenomegaly Extremities: No clubbing/cyanosis. No edema. Right elbow is not red, swollen or inflamed anymore. Behavior: Appropriate, cooperative Results & Data Results & Data Vital Signs (Past 12 Hours) Vital Signs Temp Pulse Resp BP Pulse Ox O2 Del Method 01/13/23 12:13 36.8 C 73 18 91/65 L 98 Room Air 01/13/23 07:43 36.6 C 90 17 107/74 95 Room Air 01/13/23 03:18 36.5 C 84 18 100/66 97 Room Air PG Care Time/CCT Total # of Minutes Spent Total Time Spent with Patient: Total time spent is greater than 50% in coordination of care (as documented) at patient's floor/unit and/or counseling patient: Coding Level of Care Code 14784 SUB INP/OBS CARE 2/35MIN Diagnoses Cellulitis of right elbow L03.113 Streptococcal bacteremia R78.81; B95.5 Sepsis A41.9 Tachycardia R00.0 Abnormal LFTs R79.89 Lactic acidosis E87.20 Malignant neoplasm of lower-outer quadrant of left breast of female, estrogen receptor positive C50.512; Z17.0 Depression, major F32.9 Jagjit's thyroiditis E06.3
[2023-01-13] MEDS: MELATONIN 3 MG TAB PO PRN (22:06)
[2023-01-14] MEDS: LEVOTHYROXINE SODIUM 100 MCG TABLET PO SCH (06:24)
[2023-01-14] MEDS: LIOTHYRONINE SODIUM 5 MCG TAB PO SCH (06:24)
[2023-01-14 07:14] LABS: Hematocrit (blood only) 39.2 % (37.0-47.0); Hemoglobin 12.8 g/dl (12.0-16.0); Mean Corpuscular Hemoglobin 28.7 pg (25.0-34.0); Mean Corpuscular Hgb Conc 32.7 g/dL (32.0-36.0); Mean Corpuscular Volume 87.9 fL (80.0-100.0); Mean Platelet Volume 9.4 fL (9.4-12.4); Platelet Count 208 K/uL (130-400); RDW Coefficient of Variation 15.1 % (11.5-14.5); RDW Standard Deviation 48.4 fL (36.4-46.3); Red Blood Count 4.46 M/uL (4.20-5.40); White Blood Count 5.58 K/ul (4.8-10.8)
[2023-01-14] MEDS: ACETAMINOPHEN 325 MG TAB PO PRN ×2 (07:41→13:38)
[2023-01-14] MEDS: ADVANCED PROBIOTIC 1250 MG CAPSULE PO SCH (08:19)
[2023-01-14] MEDS: ANASTROZOLE 1 MG TAB PO SCH (08:19)
[2023-01-14] MEDS: CHOLECALCIFEROL 5,000 UNITS 125 MCG TAB PO SCH (08:19)
[2023-01-14] MEDS: PANTOprazole 40 MG TAB PO SCH (08:20)
[2023-01-14] MEDS: SERTRALINE HCL 50 MG TABLET PO SCH (08:20)
[2023-01-14] MEDS: HEPARIN SOD 5,000 UNIT/0.5 ML VIAL SQ SCH (08:20)
[2023-01-14] MEDS: VENLAFAXINE HCL XR 150 MG CAPXR PO SCH (08:20)
[2023-01-14] MEDS: SENNA 8.6 MG TAB PO SCH (08:20)
[2023-01-14] MEDS: MULTIVITAMIN TAB PO SCH (08:20)
--- NOTE | 2023-01-14 09:13 | Infectious Disease Progress Nt ---
Date of Service January 14, 2023 Assessment & Plan (1) Streptococcal bacteremia: (2) Immunocompromised state: Plan #BHS, Group G bacteremia # Breast ca with R breast implant #Port removal on 01/12, port tip positive #R Elbow cellulitis? 47-year-old female with history of right subclavian vein treated with a 6-month course of Eliquis, stage Ib triple positive left breast ca s/p radiation and neoadjuvant systemic therapy with TCHP completed on 03/09/2022 followed by bilateral mastectomy with reconstruction on 04/03/2022 with pathology revealing residual disease. Currently on adjuvant treatment with Kadcyla. History c/b implant infection s/p removal of L breast implant (currently with R breast implant), she prev reqd multiple I&Ds with negative culture and subsequently had removal of tissue spectacle truer on 11/17/2022 on L side. Patient admitted with palpitations to [facility]. Infectious diseases consulted for strep bacteremia Labs obtained in the ED revealed elevated lactic acid level of 3.1, transaminitis with ALT of 171, AST of 291 and alkaline phosphatase of 538. CTA chest revealed no evidence of PE but was concerning for bronchitis possibly infectious/inflammatory as well as prominent mediastinal and hilar lymph nodes. CT abdomen and pelvis was concerning for gastritis and also revealed hepatic steatosis with mild splenomegaly. 01/09 Blood cultures from [facility] revealed gram-positive cocci in chains ultimately growing Group G strep /2 bottles. Repeat cultures 01/10 and 01/11 in lab. 2D echocardiogram normal EF 55 to 60%, no obvious vegetation. InitiallyPatient was given a dose of IV vancomycin and Zosyn in the ED for empiric coverage, now narrowed to Ceftriaxone. Port removed on 01/12 with tip growth of BHS, Group G. Orthopaedics following for R elbow erythema and suspect this is likely cellulitis, unlikely olecranon bursitis, this is also consistent with elbow xray "he joint spaces are maintained. There is no joint effusion. Mild dorsal soft tissue swelling is observed." 01/11 R breast ultrasound Mild subcutaneous soft tissue edema there is seen at the site of interest with no organized/drainable fluid collection identified. Recommend C/W Ceftriaxone, suspect port is source Given her immunosuppression and chronic issues, R elbow cellulitis, and chest erythema, I would favor 14 day course of ceftriaxone from port removal Can place midline and anticipate abx Ceftriaxone 2G IV daily through 01/26/23 with weekly CBC w/diff, CMP labs sent to PCP and close monitoring of R breast, Chest wall and R elbow Katie Catsaneda MD Infectious Diseases [facility] Admission and Anticipated Discharge Date Admission Date: January 10, 2023 Subjective Subsequent visit was provided via telemedicine using two-way real-time interactive telecommunication between the patient and the telemedicine provider. For the duration of the visit, the provider was performing the assessment from a different facility than the patient. This includesuse of bluetooth stethoscope forauscultationperformed by the telepresenter that the telemedicine provider can hear if described in the physical exam. Flight Engineer contact information: Please call [facility] Call Center [phone]. (Phone Number For Physician Use Only) After establishing a telemedicine visit, patient was: Patient was verified with two unique identifiers, Patient/authorized rep acknowledged consent and understanding and Gave permission to continue telehealth session Time Spent with Patient: Subsequent => 35 min Physical Exam Physical Exam: NAD L chest erythema resolved R breast erythema resolved R elbow full ROM Results & Data Vital Signs (Past 12 Hours) Vital Signs Temp Pulse Resp BP Pulse Ox O2 Del Method 01/14/23 07:51 36.4 C L 84 14 110/80 96 Room Air Laboratory Results Laboratory Results - last 48 hr 01/13/23 01/13/23 01/14/23 06:02 06:02 06:37 WBC 5.25 5.58 RBC 4.30 4.46 Hgb 12.5 12.8 Hct 36.4 L 39.2 MCV 84.7 87.9 MCH 29.1 28.7 MCHC 34.3 32.7 RDW Std Deviation 45.9 48.4 H RDW Coeff of Nichole 15.0 H 15.1 H Plt Count 148 208 MPV 9.5 9.4 Sodium 139 Potassium 3.6 Chloride 102 Carbon Dioxide 29 Anion Gap 8 BUN 11 Creatinine 0.69 Est Cr Clr Drug Dosing 88.9 Est GFR ( Amer) 121.0 Est GFR (Non-Af Amer) 104.4 BUN/Creatinine Ratio 15.9 Glucose 112 H Calcium 9.3 Total Bilirubin 0.3 AST 70 H ALT 111 H Alkaline Phosphatase 630 H Total Protein 7.8 Albumin 3.4 Globulin 4.4 H Albumin/Globulin Ratio 0.8 L Microbiology 01/11/23 09:20 Blood Aerobic Blood Culture - Preliminary No growth in Aerobic bottle after 48 hours. 01/11/23 09:20 Blood Anaerobic Blood Culture - Preliminary No growth in Anaerobic bottle after 48 hours. 01/12/23 09:35 Catheter Tip, A-port Catheter Tip Culture - Preliminary Group G Beta Strep 01/11/23 06:48 Blood Aerobic Blood Culture - Preliminary No growth in Aerobic bottle after 48 hours. 01/11/23 06:48 Blood Anaerobic Blood Culture - Preliminary No growth in Anaerobic bottle after 48 hours. 01/09/23 22:24 Blood Aerobic Blood Culture - Final Group G Beta Strep 01/09/23 22:24 Blood Anaerobic Blood Culture - Final Group G Beta Strep 01/10/23 00:13 Blood Aerobic Blood Culture - Preliminary No growth in Aerobic bottle after 48 hours. 01/10/23 00:13 Blood Anaerobic Blood Culture - Preliminary No growth in Anaerobic bottle after 48 hours. Medications Administered Current Inpatient Medications Acetaminophen (Acetaminophen 325 Mg Tab) 650 mg PO Q4H PRN PRN Reason: Pain or Fever Stop: 02/09/23 02:18 Last Admin: 01/14/23 07:41 Dose: 650 mg Acetaminophen/Butalbital/Caffeine (Butalbital/Acetamin/Caffeine Tab) 1 tab PO Q4H PRN PRN Reason: migraine headache Stop: 02/09/23 02:18 Albuterol (Albuterol Hfa 8 Gm Inhaler) 2 puffs INH Q4H PRN PRN Reason: shortness of breath or wheezing Stop: 02/09/23 02:18 Anastrozole (Anastrozole 1 Mg Tab) 1 mg PO DAILY [facility] Stop: 02/09/23 08:59 Last Admin: 01/14/23 08:19 Dose: 1 mg Heparin Sodium (Porcine) (Heparin Sod 5,000 Unit/0.5 Ml Vial) 5,000 units SQ Q12 LES Stop: 02/09/23 08:59 Last Admin: 01/14/23 08:20 Dose: 5,000 units Ceftriaxone Sodium 2,000 mg/ (Dextrose) 70 mls @ 140 mls/hr IV Q24H LES Stop: 01/25/23 10:59 Last Infusion: 01/13/23 11:40 Dose: Infused Lactobacillus Acidophilus (Advanced Probiotic 1250 Mg Capsule) 2 cap PO QAM LES Stop: 02/09/23 08:59 Last Admin: 01/14/23 08:19 Dose: 2 cap Levothyroxine Sodium (Levothyroxine Sodium 100 Mcg Tablet) 100 mcg PO DAILYBB [facility] Stop: 02/09/23 06:29 Last Admin: 01/14/23 06:24 Dose: 100 mcg Liothyronine Sodium (Liothyronine Sodium 5 Mcg Tab) 5 mcg PO DAILYBB LES Stop: 02/09/23 06:29 Last Admin: 01/14/23 06:24 Dose: 5 mcg Melatonin (Melatonin 3 Mg Tab) 6 mg PO HS PRN PRN Reason: Sleep Stop: 02/10/23 22:17 Last Admin: 01/13/23 22:06 Dose: 6 mg Multivitamins (Multivitamin Tab) 1 tab PO DAILY [facility] Stop: 02/09/23 08:59 Last Admin: 01/14/23 08:20 Dose: 1 tab Ondansetron HCl (Ondansetron 4 Mg Od Tab) 8 mg PO Q8H PRN PRN Reason: Nausea And Vomiting Stop: 02/09/23 02:46 Pantoprazole Sodium (Pantoprazole 40 Mg Tab) 40 mg PO DAILY [facility] Stop: 02/09/23 08:59 Last Admin: 01/14/23 08:20 Dose: 40 mg Polyethylene Glycol (Polyethylene (Miralax) 17 Gm Pack) 17 gm PO DAILY PRN PRN Reason: Constipation Stop: 02/09/23 02:18 Sennosides (Senna 8.6 Mg Tab) 8.6 mg PO DAILY [facility] Stop: 02/09/23 08:59 Last Admin: 01/14/23 08:20 Dose: 8.6 mg Sertraline HCl (Sertraline Hcl 50 Mg Tablet) 75 mg PO QAM [facility] Stop: 02/09/23 08:59 Last Admin: 01/14/23 08:20 Dose: 75 mg Venlafaxine HCl (Venlafaxine Hcl Xr 150 Mg Capxr) 150 mg PO QAM [facility] Stop: 02/09/23 08:59 Last Admin: 01/14/23 08:20 Dose: 150 mg Vitamin D (Cholecalciferol 5,000 Units 125 Mcg Tab) 5,000 units PO DAILY [facility] Stop: 02/09/23 08:59 Last Admin: 01/14/23 08:19 Dose: 5,000 units
--- NOTE | 2023-01-14 09:26 | Orthopedic Progress Note ---
Date of Service January 14, 2023 Assessment & Plan (1) Cellulitis of right elbow: Plan: The patient was educated regarding today's findings. Conservative care measures were discussed. She is doing well. Redness has resolved. She has excellent motion. She did have some minor increase in discomfort overnight, but overall looks very good. Continue with her antibiotics. Okay for discharge from an orthopedic standpoint. Follow-up appointment in the office has been made for January 22. Call before then with any acute changes or concerns. Admission and Anticipated Discharge Date Admission Date: January 10, 2023 Subjective This 47-year-old female is seen today in her room. She currently denies any fevers or chills. She states there was some discomfort in her elbow overnight, but overall it is improved. She notes that the redness has resolved. No other complaints at this point. Physical Exam Physical Exam: General: Well-developed, well-nourished, middle-aged female, in no acute distress. Sitting in bed. Alert and oriented. She has finished her breakfast. She is afebrile. Skin: Warm and dry with good turgor. No rashes. No ecchymosis or erythema present over the right elbow. She may have some mild edema present laterally. It is minimal if any. No open wounds. Musculoskeletal: Right elbow has full terminal extension. Full flexion. Full supination and pronation. She has some very mild discomfort with palpation over the lateral aspect of the elbow. No pain with palpation over the medial epicondyle or olecranon. No pain with palpation over the forearm or wrist. She has full range of motion of her wrist and digits. Neurologic: Gross sensation is intact across the right arm by soft touch. Peripheral pulses are 2+. Results & Data Vital Signs (Past 12 Hours) Vital Signs Temp Pulse Resp BP Pulse Ox O2 Del Method 01/14/23 07:51 36.4 C L 84 14 110/80 96 Room Air Laboratory Results CBC obtained today shows a white count of 5.58. Normal H&H. Normal platelets.
[2023-01-14] MEDS: cefTRIAXone SODIUM 2,000 MG in DEXTROSE 5% 50 ML IV SCH (11:40)
[2023-01-14 14:56] VITALS: BP 105/72; TEMP 98.1; O2SAT 94
--- NOTE | 2023-01-14 15:45 | Discharge Summary ---
Date of Service January 14, 2023 Admission HPI Per Admitting Provider This is a 47-year-old female with past medical history significant history of invasive ductal breast cancer on active chemotherapy regimen with anastrozole and Zoladex, hypothyroidism on thyroid replacement therapy, DVT of right subclavian vein treated with a 6-month course of Eliquis who presents to the emergency department with complaints of intermittent palpitation over the past 2 days. Patient reports that she was able to feel better heart rate was elevated over the past 2 days but she denies any chest pain or shortness of breath. Patient reports that she had experienced episodes of palpitations during her c hemotherapy regimen over the past 2 years intermittently but this episode patient feels has been more sustained and hence patient became concerned and presents to ED for further evaluation. Patient otherwise denies any fevers but reports possible chills few days ago. Patient has a Mediport for access for chemotherapy regimen. Patient has a prior history of DVT of right subclavian vein treated with a course of Eliquis for 6 months and this has been discontinued. Patient has seen her oncologist Dr Lyn about 2 weeks ago. Patient evaluated in ED and noted labs indicate that her white count was not elevated, sodium level is 128 and a lactate level was elevated at 3.1. Patient also found to have elevated transaminases with AST being 291 and ALT being 171 and alk phos was elevated at 538 Given the elevated lactic acid level patient was started on IV fluids and has been admitted for further management given underlying immunocompromise state as patient is on active chemotherapy. Patient was given a dose of IV vancomycin and Zosyn in the ED for empiric coverage Admission Exam Per Admitting Provider Head and ENT no thyroid enlargement trachea midline Cardiovascular S1-S2 are normal no S3 Lungs bilateral air entry fair no wheezing Abdomen soft nondistended positive bowel sounds no rebound tenderness Extremity shows trace edema Neurologically no focal deficits Skin shows no rash no cyanosis Principal Diagnosis Streptococcus bacteremia secondary to infected Mediport Sepsis Discharge Exam General: Awake, conversant Heart: S1, S2/regular rate and rhythm, no murmur rubs or gallops Lungs: Clear to auscultation bilaterally. Normal effort. Dressing on the right upper chest where the Mediport was. Abdomen: Soft/nontender/nondistended. No hepatosplenomegaly Extremities: No clubbing/cyanosis. No edema. Right elbow is not red, swollen or inflamed anymore. Behavior: Appropriate, cooperative Discharge Data Allergies Allergy/AdvReac Type Severity Reaction Status Date / Time animal dander Allergy Intermediate NASAL Verified 01/09/23 22:50 CONGESTION house dust AdvReac Intermediate NASAL Verified 01/09/23 22:50 CONGESTION Consultations 01/10/23 00:48 ED Decision to Admit Stat 01/10/23 08:10 Consult Oncology Routine 01/10/23 08:12 Consult Cardiology Routine 01/11/23 12:29 Consult General Surgery Routine Consult Infectious Diseases Routine 01/11/23 14:26 Consult Orthopedic Surgery Routine 01/13/23 13:17 Consult [facility] nurse [facility] Routine 01/13/23 13:19 Consult [facility] nurse [facility] Routine Procedures Performed Operation Date: 01/12/23 07:30 Actual Procedures p Right subclavian Mediport Removal(Right) - Jerome Hsu, Ordered Studies 01/09/23 21:59 CT angio chest PE protocol Stat 01/09/23 23:21 CT abd pelvis IV con only Stat 01/11/23 15:32 US breast RT limited Routine Hospital Course (1) Streptococcal bacteremia: Mediport removal by general surgery 01/12. Tip was sent for culture and sensitivity, preliminary group G beta strep Patient continues on ceftriaxone 2 g daily Bacteremia with group G beta strep from blood cultures 01/09/2023 Symptomatically patient is improving. Infectious disease recommends continuing with ceftriaxone 2 g daily until January 26 Recommends weekly CBC and CMP while on ceftriaxone, to be sent to PCP Midline inserted today TTE on 01/10 negative for vegetation (2) Cellulitis of right elbow: Much improved Orthopedics on board. Recommends follow-up in 1 to 2 weeks. Cellulitis resolved Patient is afebrile Streptococcal bacteremia as below. Mediport was successfully removed by surgery 01/12 (3) Sepsis: Group G beta strep bacteremia Resolved Afebrile (4) Tachycardia: Resolved No chest pain or tightness No sensation of palpitation anymore Most likely secondary to sepsis and bacteremia Cardiology advised against beta-blockers at this time Continue to monitor on telemetry (5) Abnormal LFTs: Most likely secondary to chemotherapy using Kadcyla Continue to trend May need dose reduction of chemotherapy for next treatment. Will defer to oncology (6) Lactic acidosis: Resolved. Secondary to bacteremia Continue IV antibiotics (7) Malignant neoplasm of lower-outer quadrant of left breast of female, estrogen receptor positive: Currently follows with oncology Triple positive breast cancer for which she is currently on adjuvant therapy with Kadcyla infusions IV every 3 weeks (last received on 12/18/2022), she is also on AI plus ovarian suppression. Mediport removed for bacteremia History of inflected left implant with removal of left implant Consider plastic surgery consultation as an outpatient after treatment for bacteremia (8) Depression, major: Appropriate in the setting of multiple comorbidities including malignancy Affect is appropriate today. Patient with very positive outlook Continue venlafaxine (9) Jagjit's thyroiditis: Continue with levothyroxine 100 mcg daily Free T4 is 1.38 Continue outpatient management Total Time Total Time Spent Total Time Spent (In Minutes): 35 Discharge Plan Discharge Items Patient Disposition: Home - Home Health Services Reason For Visit: PALPITATIONS, LACTIC ACIDOSIS Discharge Diagnosis: Streptococcal bacteremia due to infected Mediport Sepsis Activity: Resume your previous activity Non-emergency contact: Primary Care Provider Call non-emergency contact if: you have any medication questions and your symptoms worsen Follow-up/Referrals: Meghann Fraire DO [Primary Care Provider] - 01/28/23 9:20 am Jerome Hsu DO [Surgeon] - 01/22/23 10:00 am (Follow up in 10-14 days for suture removal) Mary Jane Benitez PA-C [Physician Flight Service Agent] - 01/22/23 8:00 am Diet: Regular Addtl Attending Provider Instructions: Follow-up with [facility] on January 22 for reevaluation of the elbow. Continue your antibiotics as directed Tylenol 650 mg every 6 hours as needed for discomfort Continue your meloxicam daily You will need weekly labs CBC with diff, CMP to be sent to your PCP Pending Studies at Discharge: No Stand-Alone Forms: My [facility] Medications and DC Order Prescriptions: New ceftriaxone 2 gram recon soln 2 g IV DAILY Qty: 25 0RF Continued ondansetron HCl 8 mg tablet 8 mg PO Q8H PRN (Reason: NAUSEA/VOMITING) prochlorperazine maleate [Compazine] 10 mg tablet 10 mg PO Q6H PRN (Reason: NAUSEA/VOMITING) anastrozole 1 mg tablet 1 mg PO DAILY sennosides [Senokot] 8.6 mg tablet 8.6 mg PO DAILY qjejhhjikt-hkwxxeilyuivc-mxmu 50-325-40 mg tablet 1 tab PO Q4H PRN (Reason: migraine headache) Patient Comments: on hold while taking Eliquis pantoprazole 40 mg tablet,delayed release (DR/EC) 40 mg PO DAILY loratadine [Claritin] 10 mg tablet 10 mg PO DAILY levothyroxine 100 mcg tablet 100 mcg PO DAILY Qty: 30 2RF liothyronine 5 mcg tablet 5 mcg PO QAM Qty: 90 1RF albuterol sulfate 90 mcg/actuation HFA aerosol inhaler 2 puffs inhalation Q4H PRN (Reason: shortness of breath or wheezing) Qty: 1 0RF meloxicam 15 mg tablet 15 mg PO DAILY PRN (Reason: pain) Qty: 30 2RF Hold Instructions: On Eliquis medical marijuana 1 dose inhalation DIRECTED PRN (Reason: NEEDED) THYROMIN 1 tab PO QAM YOLANDE MAG 1 tab PO QAM Patient Comments: TID (CALCIUM MAGNESIUM) PROBIOTIC SUPREME 1 tab PO QAM AMINO ACID SUPREME 1 tab PO QAM cetirizine 10 mg tablet 10 mg PO DAILY multivitamin Tablet 1 tab PO DAILY venlafaxine 150 mg capsule,extended release 24hr 150 mg PO QAM cholecalciferol (vitamin D3) 125 mcg (5,000 unit) tablet 5,000 units PO DAILY sertraline 50 mg Tablet 75 mg PO QAM Zoladex 3.6 mg Implant 0 mg SUBCUT MONTHLY Rx Instructions: PT UNSURE OF DOSE, UNABLE TO VERIFY. Discharge Orders: Discharge Order (Routine); Ordered 01/14/23 Ordered By: Louie Franklin Admission Data Admit Date/Time: 01/10/23 01:10 Attending Provider: Louie Franklin Admit Provider: Marvin Louis Primary Care Provider: Meghann Fraire Other Providers: Kelsie Segura ; [facility] ; Marvin Louis ; Kasey Lyn ; Bimal Marcus ; Werner Tolentino ; Jacky Roach ; Mohan Collado ; Rubens Rushing ; August Santiago Jr ; Rusty Mercer ; Tamar Kay ; Nery Thompson ; Jarod Ramirez ; Anastacio Delgado ; Adria Ashford ; Lizet Worthington ; Odalys Doyle ; Minh Carrera ; Vidal Hayes ; Mohan Peterson V. ; Cristiano Enrique ; Nani Aguilar ; Jose Mcknight ; Sari Gray ; Beny Martinez ; Silvia Reddy ; Katie Castaneda ; Tracie Marin ; Nam Oropeza ; Carly Swanson ; Wilfrido Brown ; [facility] Coding Level of Care Code 61102 INP/OBS DISCH >30 MIN Diagnoses Streptococcal bacteremia R78.81; B95.5 Cellulitis of right elbow L03.113 Sepsis A41.9 Tachycardia R00.0 Abnormal LFTs R79.89 Lactic acidosis E87.20 Malignant neoplasm of lower-outer quadrant of left breast of female, estrogen receptor positive C50.512; Z17.0 Depression, major F32.9 Jagjit's thyroiditis E06.3
[2023-01-14 16:10] VITALS: PULSE 84
== END 2023-01-14 16:50 | disposition home health service (06) | DRG 314 ==
LOC: ED 21:41 → EDINP 01-10 01:10 → SUATTDRO 01-10 01:10 → 2E 01-10 02:19 → 3W 01-13 17:43

== ENCOUNTER 2023-12-10 17:50 | Inpatient (IN) ==
[2023-12-10] MEDS: CEFEPIME 2,000 MG/20 ML VIAL IV STA (18:21)
[2023-12-10] MEDS: SODIUM CHLORIDE 0.9% 1,000 ML IV SCH (18:22)
[2023-12-10] MEDS: ONDANSETRON INJ 2 MG/ML 2 ML VIAL IV STA (18:36)
[2023-12-10] MEDS: MoRPHine SULFATE 4 MG/ML 1 ML CARP\\VIAL IV STA (18:38)
--- NOTE | 2023-12-10 18:45 | Emergency Department Note ---
Impression & Plan Sepsis, Leukocytosis, Cellulitis, Status post surgery ED Provider Note NAME: ISABELLA MARIE AGE: 48 SEX: F : 1975 ARRIVES VIA: Walk-In INFORMANT: [Patient] ED PROVIDER(S): [Edgardo Cornell MD] CHIEF COMPLAINT: Infection HISTORY OF PRESENT ILLNESS: The patient is a 48-year-old female who presents to the ED with fever, body aches and nausea. She felt poorly this morning and things quickly escalated. The patient did have breast flap surgery done on the left about 1.5 weeks ago. This was done at [facility]. She still has [address] This afternoon, the drainage became cloudy. She is not short of breath. No cough. No urinary complaints, no diarrhea, no vaginal complaints. She is certainly concerned that she has an infection. PMHx/PSHx/Social Hx: See Below PHYSICAL EXAM: GENERAL: Patient is in no acute distress. HEENT: No acute trauma, normocephalic atraumatic, mucous membranes moist, no nasal congestion. NECK: No stridor, no adenopathy, no meningismus, trachea is midline. LUNGS: Clear to auscultation bilaterally, no wheeze, no rhonchi, breath sounds equal. HEART: Mildly tachycardic, regular rhythm, no murmurs. Chest: The patient has evidence for recent surgery to the left side of the chest and left posterior thorax. There is erythema along the anterior lateral aspect of the surgical site. Warmth is present. [address] and there is some cloudy red drainage in the collection bulbs. ABDOMEN: Soft, nontender, no peritonitis. EXTREMITIES: No cyanosis, full range of motion of all the joints without pain or difficulty. NEUROLOGIC: Oriented x 3, no acute motor or sensory deficits, no focal weakness. SKIN: No jaundice, no diaphoresis. DIFFERENTIAL DIAGNOSIS: Sepsis, bacteremia, cellulitis, abscess, viral illness, dehydration, electrolyte imbalance, among others. EMERGENCY DEPARTMENT PROCEDURES: MEDICAL DECISION MAKING: There is a marked leukocytosis which would be consistent with infection. There was a normal hemoglobin and platelet count. Sodium and potassium were both slightly low but not in need of emergent correction. There was no renal failure. Lactic acid level was elevated consistent with sepsis/infection. There were some liver enzyme elevations although, the bilirubin was normal. ECG showed a sinus tachycardia, no ischemia or dysrhythmia. Cardiac enzyme testing x 1 was not consistent with acute cardiac injury. Urinalysis did not show infection. Chest film did not show pneumonia or CHF. Chest CT did not show any abscess across the chest wall. On exam, there was some erythema and warmth to the left chest wall surgical site. The patient was tachycardic. The patient received IV saline. She was given 2250 cc of IV fluid. This did meet the 30 cc/kg saline protocol for sepsis. Patient received IV cefepime and IV daptomycin. She received IV morphine for pain, IV Zofran for nausea. The patient does seem to be feeling better. Her tachycardia has resolved, she seems to be more comfortable. I did speak with the patient's plastic surgeon at [facility]. There is no reason for transfer back to their facility. She can stay at our hospital on IV antibiotic therapy. I spoke with the patient and case management, the on-call hospitalist was consulted. Prior/Outside records/notes reviewed: None ECG per my interpretation: Indication was possible sepsis. The ECG shows a sinus tachycardia with a rate of 109. There is diffuse nonspecific ST change. There is no ST elevation, no PVCs. The QTc is 476. Continuous Cardiac Monitoring per my interpretation: An order was placed for continuous cardiac monitoring. The monitor shows a rate of 105 with sinus tachycardia. Imaging/x-ray results per my interpretation: Chest x-ray does not show mediastinal widening, pneumonia or pneumothorax. Chronic Medical/Social conditions affecting care: Care/Management discussed with: Case management, the on-call hospitalist. I did speak with the patient's plastic surgeon at [facility]-Dr. Estrada Level of care consideration(s): After review of the information above and other included data: --I believe the patient requires escalation of care to admission Critical Care Note: I have personally spent 49 minutes of critical care time in the direct management of this patient. This includes bedside care, interpretation of diagnostic studies, and testing, discussion with consultants, patient, and family members, and other required patient management activities. This 49 minutes is in excess of all separately billable procedures. DISPOSITION: Admission Past Med/Surg History Medical History Vertigo Streptococcal bacteremia (01/2023) DVT (deep venous thrombosis) Right subclavian 11/2021 Hypercholesterolemia Tinnitus Hyperlipidemia TAMERA positive mixed connective disorder Allergic rhinitis Arthritis Depression, major Dysmetabolic syndrome X GERD without esophagitis Jagjit's thyroiditis Hiatal hernia Hypothyroidism Irregular menstrual cycle Low back pain Migraine headache Multilevel degenerative disc disease Psoriasis Raynaud's disease Reactive airway disease Surgical History History of removal of Port-a-Cath (01/12/23) H/O dilation and curettage H/O bilateral mastectomy (04/03/22) Port-A-Cath in place (11/20/21) History of History of wisdom tooth extraction History of eye surgery Family History Mother Hypertension Dyslipidemia Grandfather Cancer Colorectal cancer Grandfather (Maternal) Myocardial infarction Prostate cancer Heart disease Stroke Father Hypertension Grandfather (Paternal) Pancreatic cancer Other Environmental allergies No family history of adverse response to anesthesia No family history of bleeding disorder Denies family history of Ovarian cancer Breast cancer Social History Smoking Status: Never smoker Second Hand Exposure: No; Do You Dip or Chew Tobacco: No; Hx Alcohol Use: No (no alcohol for year and a half) Hx Substance Use: No Preferred Language: Amharic Communication Ability: Effective Visual Impairment: No Limitations Hearing Ability: Normal Criminal Research Specialist Required: No Beliefs That Will Affect Care: None marital status: Current Living Situation: Spouse current occupational status: employed 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 How many Children do You have: 4 Feels Safe at Home: Yes Childhood Exposure to Second-Hand Smoke: Yes Diet Comment: paleo diet caffeine: Yes during the past year weight has: remained stable Dental Care, Regularly: Yes Physical Activity Frequency: 1-2 Times per Week Seatbelt Use: always Sunscreen Use: Yes Assistive Devices: Glasses Allergies Allergies Allergy/AdvReac Type Severity Reaction Status Date / Time animal dander Allergy Intermediate NASAL Verified 12/10/23 19:17 CONGESTION house dust AdvReac Intermediate NASAL Verified 12/10/23 19:17 CONGESTION Home Meds Home Medications Medication Instructions Recorded Confirmed venlafaxine 150 mg 150 mg PO QAM 02/06/19 12/10/23 capsule,extended release 24 hr PROBIOTIC SUPREME 1 tab PO QAM 12/29/20 12/10/23 THYROMIN 1 tab PO QAM 12/29/20 12/10/23 sertraline 50 mg tablet 75 mg PO QAM 11/07/21 12/10/23 medical marijuana 1 dose inhalation DIRECTED PRN 03/19/22 12/10/23 NEEDED loratadine 10 mg tablet (Claritin) 10 mg PO DAILY 04/24/22 12/10/23 anastrozole 1 mg tablet 1 mg PO DAILY 10/05/22 12/10/23 multivitamin 1 tab PO DAILY 10/05/22 12/10/23 ondansetron HCl 8 mg tablet 8 mg PO Q8H PRN NAUSEA/VOMITING 10/05/22 12/10/23 prochlorperazine maleate 10 mg 10 mg PO Q6H PRN NAUSEA/VOMITING 10/05/22 12/10/23 tablet (Compazine) goserelin 3.6 mg subcutaneous 0 mg subcut MONTHLY 01/09/23 12/10/23 implant (Zoladex) cholecalciferol (vitamin D3) 50 50 mcg PO DAILY 07/31/23 12/10/23 mcg (2,000 unit) capsule Previous Rx's Medication Instructions Recorded albuterol sulfate 90 mcg/actuation 2 puffs inhalation Q4H PRN 02/08/20 aerosol inhaler shortness of breath or wheezing #1 g liothyronine 5 mcg tablet 5 mcg PO QAM #90 tabs 07/26/23 meloxicam 15 mg tablet 15 mg PO DAILY PRN pain #30 tabs 07/31/23 levothyroxine 100 mcg tablet 100 mcg PO DAILY #90 tabs 08/14/23 [id number]-amdhleuorfcql-goqtfulo 1 tab PO Q4H PRN migraine headache 08/19/23 50 mg-325 mg-40 mg tablet #30 tabs Results & Data (ED) Vital Signs Vital Signs - 24 hr 12/10/23 17:54 12/10/23 18:52 12/10/23 19:14 Temperature 36.7 C Temperature Source Oral Pulse Rate 110 H 101 H Pulse Rate [Apical] 100 H Pulse Rhythm [Apical] Pulse Strength [Apical] Normal Respiratory Rate 17 16 Respiratory Effort / Characteristics Non-Labored Non-Labored Spontaneous Respiratory Depth Normal Normal Respiratory Pattern Regular Blood Pressure 105/71 Blood Pressure [Right Arm] 113/80 Blood Pressure Mean 82 Blood Pressure Mean [Right Arm] 91 Pulse Oximetry 96 93 Oxygen Delivery Method Room Air Room Air Sepsis Recent Fever Within 48 Hours No Sepsis New/Unexplained Change in Mental Status N/A Sepsis Action Taken by Nursing No Action Required 12/10/23 19:15 12/10/23 20:18 12/10/23 22:14 Temperature Temperature Source Pulse Rate Pulse Rate [Apical] 98 H 102 H Pulse Rhythm [Apical] Regular Pulse Strength [Apical] Normal Respiratory Rate 18 19 Respiratory Effort / Characteristics Non-Labored Spontaneous Non-Labored Spontaneous Respiratory Depth Normal Normal Respiratory Pattern Regular Regular Blood Pressure Blood Pressure [Right Arm] 104/68 108/69 Blood Pressure Mean Blood Pressure Mean [Right Arm] 80 82 Pulse Oximetry 94 99 99 Oxygen Delivery Method Room Air Room Air Room Air Sepsis Recent Fever Within 48 Hours Sepsis New/Unexplained Change in Mental Status Sepsis Action Taken by Nursing 12/10/23 22:47 Temperature Temperature Source Pulse Rate 107 H Pulse Rate [Apical] Pulse Rhythm [Apical] Pulse Strength [Apical] Respiratory Rate Respiratory Effort / Characteristics Respiratory Depth Respiratory Pattern Blood Pressure Blood Pressure [Right Arm] Blood Pressure Mean Blood Pressure Mean [Right Arm] Pulse Oximetry Oxygen Delivery Method Sepsis Recent Fever Within 48 Hours Sepsis New/Unexplained Change in Mental Status Sepsis Action Taken by Jail Medications Current Medication List: was personally reviewed by me Laboratory Data Attestation: I reviewed the patient's lab results. 12/10/23 18:25 12/10/23 18:25 Lab Results 12/10/23 12/10/23 12/10/23 Range/Units 18:25 21:12 Unknown WBC 23.28 H (4.8-10.8) K/ul RBC 4.37 (4.20-5.40) M/uL Hgb 12.9 (12.0-16.0) g/dl Hct 38.2 (37.0-47.0) % MCV 87.4 (80.0-100.0) fL MCH 29.5 (25.0-34.0) pg MCHC 33.8 (32.0-36.0) g/dL RDW Std Deviation 42.4 (36.4-46.3) fL RDW Coeff of Nichole 13.3 (11.5-14.5) % Plt Count 237 (130-400) K/uL MPV 8.5 L (9.4-12.4) fL Immature Gran % (Auto) 0.7 % Neut % (Auto) 92.5 % Lymph % (Auto) 2.8 % Woodson % (Auto) 3.7 % Eos % (Auto) 0.0 % Baso % (Auto) 0.3 % Neut # (Auto) 21.51 H (1.40-6.50) K/uL Lymph # (Auto) 0.66 L (1.20-3.40) K/uL Woodson # (Auto) 0.87 H (0.11-0.59) K/uL Eos # (Auto) 0.00 (0.00-0.50) K/uL Baso # (Auto) 0.08 (0.00-0.20) K/uL Immature Gran # (Auto) 0.16 (0.01-0.20) K/uL Polychromasia 1+ Sodium 134 L (136-145) mmol/L Potassium 3.4 L (3.5-5.1) mmol/L Chloride 99 (98-107) mmol/L Carbon Dioxide 23 (21-32) mmol/L Anion Gap 12 H (3-11) BUN 13 (6-23) mg/dl Creatinine 0.76 (0.6-1.2) mg/dl Est Cr Clr Drug Dosing 84.8 ml/min Est GFR ( Amer) 108.3 ml/min Est GFR (Non-Af Amer) 93.4 ml/min BUN/Creatinine Ratio 17.1 (10-20) Glucose 141 H (70-99(Fasting)) mg/dl Lactate 2.8 H* 2.1 H* (0.4-2.0) mmol/L Calcium 8.8 (8.6-10.3) mg/dl Magnesium 1.7 (1.7-2.4) mg/dl Total Bilirubin 0.7 (0.2-1.0) mg/dl Direct Bilirubin 0.2 (0-0.2) mg/dl AST 39 (13-39) U/L ALT 66 H (7-52) U/L Alkaline Phosphatase 149 H (34-104) U/L Troponin I High Sens 4.3 (0-14) pg/ml Total Protein 7.4 (6.0-8.3) gm/dl Albumin 4.0 (3.4-5.0) gm/dl Procalcitonin 0.46 (0-0.5) ng/ml Urine Color Yellow Urine Appearance Clear (Clear) Urine pH 7.0 (4.5-7.5) Ur Specific Hornell 1.006 (1.000-1.030) Urine Protein Negative (Negative) Urine Glucose (UA) Negative (Negative) Urine Ketones Negative (Negative) Urine Blood Negative (Negative) Urine Nitrite Negative (Negative) Urine Bilirubin Negative (Negative) Urine Urobilinogen Negative (Negative) Ur Leukocyte Esterase Negative (Negative) Administered Medications Potassium Chloride/Sodium Chloride (Normal Saline W/20 Meq Kcl) 20 meq in 1,000 mls @ 80 mls/hr IV .[id number] LES; Protocol Stop: 12/11/23 10:59 Last Admin: 12/10/23 23:00 Dose: 80 mls/hr Documented By: JACQUE Discontinued Medications Sodium Chloride (Nss) 1,000 mls @ 999 mls/hr IV .Q1H1M LES Stop: 12/10/23 19:15 Last Infusion: 12/10/23 20:52 Dose: Infused Documented By: Admin: 12/10/23 18:22 Dose: 999 mls/hr Documented By: PARISH Cefepime HCl (Maxipime) 2,000 mg in 20 mls @ 5 mls/min IV NOW STA; Protocol Stop: 12/10/23 18:16 Last Admin: 12/10/23 18:21 Dose: 5 mls/min Documented By: PARISH Daptomycin 300 mg/ Syringe 6 mls @ 3 mls/min IV NOW STA; Protocol Stop: 12/10/23 19:05 Last Admin: 12/10/23 19:43 Dose: 3 mls/min Documented By: JACQUE Sodium Chloride (Nss) 1,000 mls @ 999 mls/hr IV .Q1H1M ONE Stop: 12/10/23 20:22 Last Infusion: 12/10/23 21:16 Dose: Infused Documented By: Admin: 12/10/23 19:47 Dose: 999 mls/hr Documented By: JACQUE Sodium Chloride (Nss) 250 mls @ 999 mls/hr IV .Q16M ONE Stop: 12/10/23 19:37 Last Infusion: 12/10/23 21:16 Dose: Infused Documented By: Admin: 12/10/23 20:50 Dose: 999 mls/hr Documented By: JACQUE Ioversol (Optiray 320 100ml) 92 ml IV ONCE ONE Stop: 12/10/23 19:35 Last Admin: 12/10/23 19:35 Dose: 92 ml Documented By: EMERITA Morphine Sulfate (Morphine Sulfate 4 Mg/Ml 1 Ml Carp\Vial) 4 mg IV NOW STA Stop: 12/10/23 18:26 Last Admin: 12/10/23 18:38 Dose: 4 mg Documented By: PARISH Ondansetron HCl (Ondansetron Inj 2 Mg/Ml 2 Ml Vial) 4 mg IV NOW STA Stop: 12/10/23 18:26 Last Admin: 12/10/23 18:36 Dose: 4 mg Documented By: PARISH Saccharomyces Boulardii (Saccharomyces Boulardii 250 Mg Cap) 250 mg PO NOW STA Stop: 12/10/23 22:28 Last Admin: 12/10/23 23:00 Dose: 250 mg Documented By: JACQUE Imaging Data Radiologist's Impression: Chest X-Ray 12/10/23 18:13 XR chest 1V portable HISTORY: Sepsis COMPARISON: Chest 11/20/2021. FINDINGS: No pneumothorax. No pleural effusions. No focal lung consolidations to suggest pneumonia. No evidence for pulmonary edema. The heart is normal in size. No acute fractures identified. Bilateral breast implants are noted. There are surgical drains overlying the left chest. These are likely within the chest wall. IMPRESSION: No acute process. ACT 112: Negative or not required by law. Electronically signed by: Elias Redd M.D. 12/10/2023 7:[address] 12/10/23 18:24 Exam(s): CT CHEST With Contrast IV Amt: 92 ml opti 320 EXAM: CT Chest With Intravenous Contrast CLINICAL HISTORY: Reason for exam: left breast surgery, poss abscess. TECHNIQUE: Axial computed tomography images of the chest with intravenous contrast. CTDI is 19.32 mGy and DLP is 609.42 mGy-cm. Automated exposure control was utilized for the study. A dose lowering technique was utilized adhering to the principles of ALARA. CONTRAST: Patient received 92 ml opti 320 of IV contrast COMPARISON: 2/26/24 FINDINGS: Patient is status post bilateral mastectomies. Right breast implant appears unremarkable. Left breast implant is collapsed. There is surrounding soft tissue swelling and edema surrounding the left breast implant and extending to the posterior chest wall. Some regions of hyperdensity may represent soft tissue hematomas. There are 2 subcutaneous drainage catheters within the posterior left chest wall. Single focus of subcutaneous gas is visible lateral to the left breast implant. There is no evidence of soft tissue abscess. Heart size is normal. There is no significant coronary artery atherosclerosis or pericardial effusion. Thoracic aorta and main pulmonary artery are normal. There is no mediastinal, hilar, or axillary lymphadenopathy. There is bibasilar subsegmental atelectasis. Lungs are otherwise clear. There is no consolidation, mass, pleural effusion, or pneumothorax. Hepatomegaly is suggested. Regional skeleton appears intact. IMPRESSION: 1. Left breast implant, new from prior exam, appearing collapsed. It is unclear if this is intentional or reflects intracapsular rupture. Correlate clinically. 2. No abscess visualized. Soft tissue swelling and edema surrounding the left breast implant and extending to the posterior left chest wall, with some regions of suspected subcutaneous hematoma formation. Two subcutaneous drainage catheters are in place extending to the posterior left chest wall. Electronically signed by: Kayla Carrasco M.D. 12/10/23 20:40 PM Discharge Plan Visit Data Chief Complaint: Infection Stated Complaint: RECENT SURG, INFECTION/DRAIN TUBE/LT SIDE OF BACK ED Provider: Edgardo Cornell Discharge Problem: Sepsis, Leukocytosis, Cellulitis, Status post surgery Patient Disposition: Admitted As Inpatient Condition: Serious Discharge Instructions Interventions: ED Discharge Assessment Last Done: 12/10/23 20:40 Forms Stand Alone Forms: [facility], Important Visit Information Prescriptions Prescriptions: No Action ondansetron HCl 8 mg tablet 8 mg PO Q8H PRN (Reason: NAUSEA/VOMITING) prochlorperazine maleate [Compazine] 10 mg tablet 10 mg PO Q6H PRN (Reason: NAUSEA/VOMITING) anastrozole 1 mg tablet 1 mg PO DAILY loratadine [Claritin] 10 mg tablet 10 mg PO DAILY liothyronine 5 mcg tablet 5 mcg PO QAM Qty: 90 1RF levothyroxine 100 mcg tablet 100 mcg PO DAILY Qty: 90 1RF hmpccmnbri-ausckerhhgzwl-jqno 50-325-40 mg tablet 1 tab PO Q4H PRN (Reason: migraine headache) Qty: 30 0RF albuterol sulfate 90 mcg/actuation HFA aerosol inhaler 2 puffs inhalation Q4H PRN (Reason: shortness of breath or wheezing) Qty: 1 0RF medical marijuana 1 dose inhalation DIRECTED PRN (Reason: NEEDED) THYROMIN 1 tab PO QAM PROBIOTIC SUPREME 1 tab PO QAM multivitamin Tablet 1 tab PO DAILY cholecalciferol (vitamin D3) 50 mcg (2,000 unit) capsule 50 mcg PO DAILY meloxicam 15 mg tablet 15 mg PO DAILY PRN (Reason: pain) Qty: 30 5RF Hold Instructions: On Eliquis venlafaxine 150 mg capsule,extended release 24hr 150 mg PO QAM sertraline 50 mg Tablet 75 mg PO QAM Zoladex 3.6 mg Implant 0 mg SUBCUT MONTHLY Rx Instructions: PT UNSURE OF DOSE, UNABLE TO VERIFY. Referrals Referrals: Meghann Fraire DO [Primary Care Provider] - Discharge Problem: Sepsis Qualifiers: Sepsis type: sepsis due to unspecified organism Sepsis acute organ dysfunction status: without acute organ dysfunction Qualified Code(s): A41.9 - Sepsis, unspecified organism Leukocytosis Qualifiers: Leukocytosis type: unspecified Qualified Code(s): D72.829 - Elevated white blood cell count, unspecified Cellulitis Qualifiers: Site of cellulitis: trunk Site of cellulitis of trunk: chest wall Qualified Code(s): L03.313 - Cellulitis of chest wall
[2023-12-10 19:00] LABS: Hematocrit (blood only) 38.2 % (37.0-47.0); Hemoglobin 12.9 g/dl (12.0-16.0); Mean Corpuscular Hemoglobin 29.5 pg (25.0-34.0); Mean Corpuscular Hgb Conc 33.8 g/dL (32.0-36.0); Mean Corpuscular Volume 87.4 fL (80.0-100.0); Mean Platelet Volume 8.5 fL (9.4-12.4); Platelet Count 237 K/uL (130-400); RDW Coefficient of Variation 13.3 % (11.5-14.5); RDW Standard Deviation 42.4 fL (36.4-46.3); Red Blood Count 4.37 M/uL (4.20-5.40); White Blood Count 23.28 K/ul (4.8-10.8)
--- NOTE | 2023-12-10 19:08 | XRay Report ---
XR chest 1V portable HISTORY: Sepsis COMPARISON: Chest 11/20/2021. FINDINGS: No pneumothorax. No pleural effusions. No focal lung consolidations to suggest pneumonia. N o evidence for pulmonary edema. The heart is normal in size. No acute fractures identified. Bilateral breast implants are noted. There are surgical drains overlying the left chest. These are likely with in the chest wall. IMPRESSION: No acute process. ACT 112: Negative or not required by law. Electronically signed by: Elias Redd M.D. 12/10/2023 7:07 PM
[2023-12-10 19:15] LABS: BUN Creatinine Ratio 17.1 (10-20); Bilirubin Direct 0.2 mg/dl (0-0.2); Bilirubin,Total 0.7 mg/dl (0.2-1.0); Calcium 8.8 mg/dl (8.6-10.3); Creatinine Clr Calc Pharmacy 84.8 ml/min; Est GFR (African American) 108.3 ml/min; Est GFR (Non-African American) 93.4 ml/min; Magnesium 1.7 mg/dl (1.7-2.4); Potassium 3.4 mmol/L (3.5-5.1); Total Protein 7.4 gm/dl (6.0-8.3)
[2023-12-10 19:20] LABS: Basophils # (auto) 0.08 K/uL (0.00-0.20); Basophils % (auto) 0.3 %; Immature Granulocytes # (auto) 0.16 K/uL (0.01-0.20); Immature Granulocytes % (auto) 0.7 %; Lymphocytes # (auto) 0.66 K/uL (1.20-3.40); Lymphocytes % (auto) 2.8 %; Monocytes # (auto) 0.87 K/uL (0.11-0.59); Monocytes % (auto) 3.7 %; Neutrophils # (auto) 21.51 K/uL (1.40-6.50); Neutrophils % (auto) 92.5 %; Polychromasia 1+; Troponin I High Sensitivity 4.3 pg/ml (0-14)
[2023-12-10] MEDS: OPTIRAY 320 100ml IV ONE (19:35)
[2023-12-10] MEDS: DAPTOmycin 300 MG in SYRINGE 0 ML IV STA (19:43)
[2023-12-10 19:44] LABS: Appearance Urine Clear (Clear); Bilirubin Urine Negative (Negative); Blood Urine Negative (Negative); Color Urine Yellow; Glucose Urine UA Negative (Negative); Ketones Urine Negative (Negative); Leukocyte Esterase Urine Negative (Negative); Nitrite Urine Negative (Negative); Protein Urine Negative (Negative); Specific Gravity Urine 1.006 (1.000-1.030); Urobilinogen Urine Negative (Negative)
[2023-12-10] MEDS: SODIUM CHLORIDE 0.9% 1,000 ML IV ONE (19:47)
--- NOTE | 2023-12-10 20:41 | CT Scan Report ---
Exam(s): CT CHEST With Contrast IV Amt: 92 ml opti 320 EXAM: CT Chest With Intravenous Contrast CLINICAL HISTORY: Reason for exam: left breast surgery, poss abscess. TECHNIQUE: Axial computed tomography images of the chest with intravenous contrast. CTDI is 19.32 mGy and DLP is 609.42 mGy-cm. Automated exposure control was utilized for the study. A dose lowering technique was utilized adhering to the principles of ALARA. CONTRAST: Patient received 92 ml opti 320 of IV contrast COMPARISON: 10/07/23 FINDINGS: Patient is status post bilateral mastectomies. Right breast implant appears unremarkable. Left breast implant is collapsed. There is surrounding soft tissue swelling and edema surrounding the left breast implant and extending to the posterior chest wall. Some regions of hyperdensity may represent soft tissue hematomas. There are 2 subcutaneous drainage catheters within the posterior left chest wall. Single focus of subcutaneous gas is visible lateral to the left breast implant. There is no evidence of soft tissue abscess. Heart size is normal. There is no significant coronary artery atherosclerosis or pericardial effusion. Thoracic aorta and main pulmonary artery are normal. There is no mediastinal, hilar, or axillary lymphadenopathy. There is bibasilar subsegmental atelectasis. Lungs are otherwise clear. There is no consolidation, mass, pleural effusion, or pneumothorax. Hepatomegaly is suggested. Regional skeleton appears intact. IMPRESSION: 1. Left breast implant, new from prior exam, appearing collapsed. It is unclear if this is intentional or reflects intracapsular rupture. Correlate clinically. 2. No abscess visualized. Soft tissue swelling and edema surrounding the left breast implant and extending to the posterior left chest wall, with some regions of suspected subcutaneous hematoma formation. Two subcutaneous drainage catheters are in place extending to the posterior left chest wall. Electronically signed by: Kayla Carrasco M.D. 12/10/23 20:40 PM
[2023-12-10] MEDS: SODIUM CHLORIDE 0.9% 250 ML IV ONE (20:50)
--- NOTE | 2023-12-10 22:29 | History & Physical Report ---
Date of Service December 10, 2023 Assessment & Plan (1) Immunocompromised state: (2) Malignant neoplasm of lower-outer quadrant of left breast of female, estrogen receptor positive: (3) Sepsis: (4) Hypercholesterolemia: (5) Vitamin D deficiency: (6) GERD without esophagitis: (7) Hypothyroidism: (8) Reactive airway disease: (9) TAMERA positive: (10) Depression, major: Plan Sepsis due to infection status post flap surgery/history of left breast malignancy- Continue daptomycin 3 mg IV every 24 hours and cefepime 2 g IV every 12 hours Follow drainage culture and sensitivity Follow blood cultures and sensitivities Patient was briefly hypotensive, with persistent tachycardia and febrile at home Leukocytosis with left shift Status post 2 L normal saline with additional saline running at 250 mL/h Maintenance fluids normal saline with potassium chloride 20 mEq at 80 mL/h Patient notes that she has had her pain primarily controlled at home with combinations of acetaminophen and ibuprofen until today Acetaminophen 650 mg by mouth every 6 hours as needed for mild pain or fever Toradol 10 mg IV every 6 hours as needed for moderate pain Morphine sulfate 4 mg IV every 3 hours as needed for severe pain Continue anastrozole 1 mg daily Surgeon Farhad Estrada asked that the patient be admitted to [facility], and would like a feedback call in the morning [phone] cell phone Reactive airways disease- Continue albuterol sulfate HFA 2 puffs every 4 hours as needed Hypothyroidism- Continue both levothyroxine and liothyronine Depression- Continue sertraline and venlafaxine History of Present Illness Chief Complaint: The patient presents to the emergency department with complaint of the onset earlier this morning of fever, chills, body aches, nausea and left-sided chest and back pain, and change in drainage from 2 postsurgical drains, clear to cloudy in the afternoon Primary Care Provider: Meghann Fraire DO The patient is a 48-year-old female with a past medical history including malignant neoplasm of lower outer quadrant of left breast, status post left breast flap surgery 1-1/2 weeks ago, hypercholesterolemia, vitamin D deficiency, hypothyroidism, GERD without esophagitis, migraine headache, psoriasis, Raynaud's disease and reactive airway disease. Patient had been doing well postoperatively, however, this morning she awoke with the above symptoms and noticed a change in drainage from the 2 chest drains from clear to cloudy. Dr. Cornell from the ED is spoken with [facility] surgeon Farhad Estrada, who feels that patient can remain at [facility] on IV antibiotics, and asks for a report in the a.m. of hospital staff Allergies Allergy/AdvReac Type Severity Reaction Status Date / Time animal dander Allergy Intermediate NASAL Verified 12/10/23 19:17 CONGESTION house dust AdvReac Intermediate NASAL Verified 12/10/23 19:17 CONGESTION Home Medications Medication Instructions Recorded Confirmed Type venlafaxine 150 mg 150 mg PO QAM 02/06/19 12/10/23 History capsule,extended release 24 hr albuterol sulfate 90 mcg/actuation 2 puffs inhalation Q4H PRN 02/08/20 12/10/23 Rx aerosol inhaler shortness of breath or wheezing #1 g PROBIOTIC SUPREME 1 tab PO QAM 12/29/20 12/10/23 History THYROMIN 1 tab PO QAM 12/29/20 12/10/23 History sertraline 50 mg tablet 75 mg PO QAM 11/07/21 12/10/23 History medical marijuana 1 dose inhalation DIRECTED PRN 03/19/22 12/10/23 History NEEDED loratadine 10 mg tablet (Claritin) 10 mg PO DAILY 04/24/22 12/10/23 History anastrozole 1 mg tablet 1 mg PO DAILY 10/05/22 12/10/23 History multivitamin 1 tab PO DAILY 10/05/22 12/10/23 History ondansetron HCl 8 mg tablet 8 mg PO Q8H PRN NAUSEA/VOMITING 10/05/22 12/10/23 History prochlorperazine maleate 10 mg 10 mg PO Q6H PRN NAUSEA/VOMITING 10/05/22 12/10/23 History tablet (Compazine) goserelin 3.6 mg subcutaneous 0 mg subcut MONTHLY 01/09/23 12/10/23 History implant (Zoladex) liothyronine 5 mcg tablet 5 mcg PO QAM #90 tabs 07/26/23 12/10/23 Rx cholecalciferol (vitamin D3) 50 50 mcg PO DAILY 07/31/23 12/10/23 History mcg (2,000 unit) capsule meloxicam 15 mg tablet 15 mg PO DAILY PRN pain #30 tabs 07/31/23 12/10/23 Rx levothyroxine 100 mcg tablet 100 mcg PO DAILY #90 tabs 08/14/23 12/10/23 Rx gytahgzdpx-meqhlubyzxbir-wjfvroaf 1 tab PO Q4H PRN migraine headache 08/19/23 12/10/23 Rx 50 mg-325 mg-40 mg tablet #30 tabs Past Med/Surg History Medical History Vertigo Streptococcal bacteremia (01/2023) DVT (deep venous thrombosis) Hypercholesterolemia Tinnitus Hyperlipidemia TAMERA positive Allergic rhinitis Arthritis Depression, major Dysmetabolic syndrome X GERD without esophagitis Jagjit's thyroiditis Hiatal hernia Hypothyroidism Irregular menstrual cycle Low back pain Migraine headache Multilevel degenerative disc disease Psoriasis Raynaud's disease Reactive airway disease Surgical History History of removal of Port-a-Cath (01/12/23) H/O dilation and curettage H/O bilateral mastectomy (04/03/22) Port-A-Cath in place (11/20/21) History of History of wisdom tooth extraction History of eye surgery Family History Mother Hypertension Dyslipidemia Grandfather Cancer Colorectal cancer Grandfather (Maternal) Myocardial infarction Prostate cancer Heart disease Stroke Father Hypertension Grandfather (Paternal) Pancreatic cancer Other Environmental allergies No family history of adverse response to anesthesia No family history of bleeding disorder Denies family history of Ovarian cancer Breast cancer Social History Smoking Status: Never smoker Second Hand Exposure: No; Do You Dip or Chew Tobacco: No; Hx Alcohol Use: No (no alcohol for year and a half) Hx Substance Use: No Preferred Language: [place] Communication Ability: Effective Visual Impairment: No Limitations Hearing Ability: Normal Children'S Lunchroom Supervisor Required: No Beliefs That Will Affect Care: None marital status: Current Living Situation: Spouse current occupational status: employed 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 How many Children do You have: 4 Feels Safe at Home: Yes Childhood Exposure to Second-Hand Smoke: Yes Diet Comment: paleo diet caffeine: Yes during the past year weight has: remained stable Dental Care, Regularly: Yes Physical Activity Frequency: 1-2 Times per Week Seatbelt Use: always Sunscreen Use: Yes Assistive Devices: Glasses Review of Systems Review of Systems: The patient denies palpitations, shortness of breath, dyspnea on exertion, cough, lower extremity swelling, sore throat, vomiting, diarrhea , constipation, abdominal pain, pelvic pain, blood in urine or stool, dysuria, urinary frequency or urgency, lightheadedness, dizziness, headache, memory loss, loss of consciousness, imbalance, focal weakness, numbness or tingling in arms or legs The review of systems is otherwise negative other than for that already noted above, and at least 10 systems have been reviewed. Physical Exam Physical Exam: The patient is awake, alert and oriented 3, well developed and well nourished, normocephalic and atraumatic, lying in bed and in no acute distress. HEENT--PERRL, EOMI, mucous membranes and oropharynx normal Neck--supple. No JVD. No bruits. Thyroid normal, trachea midline, no adenopathy. Heart--normal S1 and S2. No murmurs, rubs or gallops. Lungs--clear bilaterally, no respiratory distress, no accessory muscle use. Abdomen--normal bowel sounds and soft. Nontender. Nondistended, no hernias or masses, no organomegaly. Extremities--no cyanosis or clubbing. No edema. There are good distal pulses b/l. Dermatologic--status post skin flap surgery with 2 drains draining cloudy red fluid Neurologic--cranial nerves II through XII grossly intact. Rheumatologic--limited exam postsurgery Psychiatric--normal affect. Results & Data Results & Data Vital Signs (Past 12 Hours) Vital Signs Temp Pulse Pulse Resp BP BP Pulse Ox 12/10/23 22:14 102 H 19 108/69 99 12/10/23 20:18 98 H 18 104/68 99 12/10/23 19:15 94 12/10/23 19:14 100 H 16 113/80 93 12/10/23 18:52 101 H 12/10/23 17:54 36.7 C 110 H 17 105/71 96 O2 Del Method 12/10/23 22:14 Room Air 12/10/23 20:18 Room Air 12/10/23 19:15 Room Air 12/10/23 19:14 Room Air 12/10/23 18:52 12/10/23 17:54 Room Air Laboratory Results Laboratory Results WBC 23.28 K/ul (4.8-10.8) H 12/10/23 18: RBC 4.37 M/uL (4.20-5.40) 12/10/23 18:25 Hgb 12.9 g/dl (12.0-16.0) 12/10/23 18: Hct 38.2 % (37.0-47.0) 12/10/23 18: MCV 87.4 fL (80.0-100.0) 12/10/23 18: MCH 29.5 pg (25.0-34.0) 12/10/23 18: MCHC 33.8 g/dL (32.0-36.0) 12/10/23 18: RDW Std Deviation 42.4 fL (36.4-46.3) 12/10/23: RDW Coeff of Nichole 13.3 % (11.5-14.5) 12/10/23 18: Plt Count 237 K/uL (130-400) 12/10/23 18: MPV 8.5 fL (9.4-12.4) L 12/10/23 18: Immature Gran % (Auto) 0.7 % 12/10/23 18: Neut % (Auto) 92.5 % 12/10/23 18: Lymph % (Auto) 2.8 % 12/10/23 18:25 Elmore % (Auto) 3.7 % 12/10/23 18: Eos % (Auto) 0.0 % 12/10/23 18:25 Baso % (Auto) 0.3 % 12/10/23 18: Neut # (Auto) 21.51 K/uL (1.40-6.50) H 12/10/23 18: Lymph # (Auto) 0.66 K/uL (1.20-3.40) L 12/10/23 18:25 Elmore # (Auto) 0.87 K/uL (0.11-0.59) H 12/10/23 18:25 Eos # (Auto) 0.00 K/uL (0.00-0.50) 12/10/23 18:25 Baso # (Auto) 0.08 K/uL (0.00-0.20) 12/10/23 18:25 Immature Gran # (Auto) 0.16 K/uL (0.01-0.20) 12/10/23 18:25 Polychromasia 1+ 12/10/23 18:25 Sodium 134 mmol/L (136-145) L 12/10/23 18:25 Potassium 3.4 mmol/L (3.5-5.1) L 12/10/23 18:25 Chloride 99 mmol/L (98-107) 12/10/23 18:25 Carbon Dioxide 23 mmol/L (21-32) 12/10/23 18:25 Anion Gap 12 (3-11) H 12/10/23 18:25 BUN 13 mg/dl (6-23) 12/10/23 18:25 Creatinine 0.76 mg/dl (0.6-1.2) 12/10/23 18:25 Est Cr Clr Drug Dosing 84.8 ml/min 12/10/23 18:25 Est GFR ( Amer) 108.3 ml/min 12/10/23 18:25 Est GFR (Non-Af Amer) 93.4 ml/min 12/10/23 18:25 BUN/Creatinine Ratio 17.1 (10-20) 12/10/23 18:25 Glucose 141 mg/dl (70-99(Fasting)) H 12/10/23 18:25 Lactate 2.1 mmol/L (0.4-2.0) H* 12/10/23 21:12 Calcium 8.8 mg/dl (8.6-10.3) 12/10/23 18:25 Magnesium 1.7 mg/dl (1.7-2.4) 12/10/23 18:25 Total Bilirubin 0.7 mg/dl (0.2-1.0) 12/10/23 18:25 Direct Bilirubin 0.2 mg/dl (0-0.2) 12/10/23 18:25 AST 39 U/L (13-39) 12/10/23 18:25 ALT 66 U/L (7-52) H 12/10/23 18:25 Alkaline Phosphatase 149 U/L (34-104) H 12/10/23 18:25 Troponin I High Sens 4.3 pg/ml (0-14) 12/10/23 18:25 Total Protein 7.4 gm/dl (6.0-8.3) 12/10/23 18:25 Albumin 4.0 gm/dl (3.4-5.0) 12/10/23 18:25 Procalcitonin 0.46 ng/ml (0-0.5) 12/10/23 18:25 Urine Color Yellow 12/10/23 Unknown Urine Appearance Clear (Clear) 12/10/23 Unknown Urine pH 7.0 (4.5-7.5) 12/10/23 Unknown Ur Specific [place] 1.006 (1.000-1.030) 12/10/23 Unknown Urine Protein Negative (Negative) 12/10/23 Unknown Urine Glucose (UA) Negative (Negative) 12/10/23 Unknown Urine Ketones Negative (Negative) 12/10/23 Unknown Urine Blood Negative (Negative) 12/10/23 Unknown Urine Nitrite Negative (Negative) 12/10/23 Unknown Urine Bilirubin Negative (Negative) 12/10/23 Unknown Urine Urobilinogen Negative (Negative) 12/10/23 Unknown Ur Leukocyte Esterase Negative (Negative) 12/10/23 Unknown Impressions Chest X-Ray 12/10/23 18:13 XR chest 1V portable HISTORY: Sepsis COMPARISON: Chest 11/20/2021. FINDINGS: No pneumothorax. No pleural effusions. No focal lung consolidations to suggest pneumonia. No evidence for pulmonary edema. The heart is normal in size. No acute fractures identified. Bilateral breast implants are noted. There are surgical drains overlying the left chest. These are likely within the chest wall. IMPRESSION: No acute process. ACT 112: Negative or not required by law. Electronically signed by: Elias Redd M.D. 12/10/2023 7:[address] 12/10/23 18:24 Exam(s): CT CHEST With Contrast IV Amt: 92 ml opti 320 EXAM: CT Chest With Intravenous Contrast CLINICAL HISTORY: Reason for exam: left breast surgery, poss abscess. TECHNIQUE: Axial computed tomography images of the chest with intravenous contrast. CTDI is 19.32 mGy and DLP is 609.42 mGy-cm. Automated exposure control was utilized for the study. A dose lowering technique was utilized adhering to the principles of ALARA. CONTRAST: Patient received 92 ml opti 320 of IV contrast COMPARISON: 10/07/23 FINDINGS: Patient is status post bilateral mastectomies. Right breast implant appears unremarkable. Left breast implant is collapsed. There is surrounding soft tissue swelling and edema surrounding the left breast implant and extending to the posterior chest wall. Some regions of hyperdensity may represent soft tissue hematomas. There are 2 subcutaneous drainage catheters within the posterior left chest wall. Single focus of subcutaneous gas is visible lateral to the left breast implant. There is no evidence of soft tissue abscess. Heart size is normal. There is no significant coronary artery atherosclerosis or pericardial effusion. Thoracic aorta and main pulmonary artery are normal. There is no mediastinal, hilar, or axillary lymphadenopathy. There is bibasilar subsegmental atelectasis. Lungs are otherwise clear. There is no consolidation, mass, pleural effusion, or pneumothorax. Hepatomegaly is suggested. Regional skeleton appears intact. IMPRESSION: 1. Left breast implant, new from prior exam, appearing collapsed. It is unclear if this is intentional or reflects intracapsular rupture. Correlate clinically. 2. No abscess visualized. Soft tissue swelling and edema surrounding the left breast implant and extending to the posterior left chest wall, with some regions of suspected subcutaneous hematoma formation. Two subcutaneous drainage catheters are in place extending to the posterior left chest wall. Electronically signed by: Kayla Carrasco M.D. 12/10/23 20:40 PM Code Status & VTE Plan Code Status Full code VTE Prophylaxis Plan VTE Prophylaxis will be ordered: Yes PG Care Time/CCT Total # of Minutes Spent Total Time Spent with Patient: Total time spent is greater than 50% in coordination of care (as documented) at patient's floor/unit and/or counseling patient: Coding Level of Care Code 01192 INT INP/OBS CARE 3/75MIN Diagnoses Immunocompromised state D84.9 Malignant neoplasm of lower-outer quadrant of left breast of female, estrogen receptor positive C50.512; Z17.0 Sepsis A41.9 Hypercholesterolemia E78.00 Vitamin D deficiency E55.9 GERD without esophagitis K21.9 Hypothyroidism E03.9 Reactive airway disease J45.909 TAMERA positive R76.8 Depression, major F32.9
[2023-12-10] MEDS: NSS + 20MEQ KCL 20 MEQ/1,000 ML BAG IV SCH (23:00)
[2023-12-10] MEDS: SACCHAROMYCES BOULARDII 250 MG CAP PO STA (23:00)
[2023-12-11] MEDS: KETOROLAC TROMETHAMINE 15 MG/ML VIAL IV PRN (00:36)
[2023-12-11] MEDS ORDERED: ALBUTEROL HFA 8 GM INHALER INH PRN (01:13)
[2023-12-11] MEDS ORDERED: BUTALBITAL/ACETAMIN/CAFFEINE TAB PO PRN (01:13)
[2023-12-11 04:48] LABS: Basophils # (auto) 0.04 K/uL (0.00-0.20); Basophils % (auto) 0.2 %; Eosinophils # (auto) 0.02 K/uL (0.00-0.50); Eosinophils % (auto) 0.1 %; Hematocrit (blood only) 31.7 % (37.0-47.0); Hemoglobin 10.5 g/dl (12.0-16.0); Immature Granulocytes # (auto) 0.11 K/uL (0.01-0.20); Immature Granulocytes % (auto) 0.7 %; Lymphocytes # (auto) 1.07 K/uL (1.20-3.40); Lymphocytes % (auto) 6.5 %; Mean Corpuscular Hemoglobin 29.5 pg (25.0-34.0); Mean Corpuscular Hgb Conc 33.1 g/dL (32.0-36.0); Mean Platelet Volume 8.7 fL (9.4-12.4); Monocytes # (auto) 0.81 K/uL (0.11-0.59); Monocytes % (auto) 4.9 %; Neutrophils # (auto) 14.34 K/uL (1.40-6.50); Neutrophils % (auto) 87.6 %; Platelet Count 170 K/uL (130-400); RDW Coefficient of Variation 13.8 % (11.5-14.5); Red Blood Count 3.56 M/uL (4.20-5.40); White Blood Count 16.39 K/ul (4.8-10.8)
[2023-12-11 05:08] LABS: Albumin Globulin Ratio 1.1 (0.9-2); Albumin Level 3.1 gm/dl (3.4-5.0); BUN Creatinine Ratio 12.3 (10-20); Bilirubin,Total 0.7 mg/dl (0.2-1.0); Calcium 7.9 mg/dl (8.6-10.3); Creatinine Clr Calc Pharmacy 99.1 ml/min; Est GFR (African American) 122.5 ml/min; Est GFR (Non-African American) 105.7 ml/min; Globulin 2.7 gm/dl (2.5-4.0); Magnesium 1.7 mg/dl (1.7-2.4); Potassium 3.8 mmol/L (3.5-5.1); Total Protein 5.8 gm/dl (6.0-8.3)
[2023-12-11] MEDS: CEFEPIME 2,000 MG in SYRINGE 0 ML IV SCH (06:17)
[2023-12-11] MEDS: LEVOTHYROXINE SODIUM 100 MCG TABLET PO SCH (06:17)
[2023-12-11] MEDS: MoRPHine SULFATE 4 MG/ML 1 ML CARP\\VIAL IV PRN (06:31)
[2023-12-11] MEDS: ONDANSETRON 8MG OD TAB PO PRN (07:27)
--- NOTE | 2023-12-11 07:48 | Hospitalist Progress Note ---
Date of Service December 11, 2023 Assessment & Plan (1) Immunocompromised state: (2) Malignant neoplasm of lower-outer quadrant of left breast of female, estrogen receptor positive: (3) Sepsis: (4) Hypercholesterolemia: (5) Vitamin D deficiency: (6) GERD without esophagitis: (7) Hypothyroidism: (8) Reactive airway disease: (9) TAMERA positive: (10) Depression, major: Plan Sepsis 2/2 Superficial Cellulitis a/w recent Flap Surgery/Drain Placement - History of left breast malignancy, for which patient has required mastectomy and reconstructive surgery - Continue daptomycin 3 mg IV every 24 hours and cefepime 2 g IV every 12 hours - Follow drainage culture and sensitivity - Follow blood cultures and sensitivities - SIRS + w/ source Patient was briefly hypotensive, with persistent tachycardia and febrile at home Leukocytosis with left shift S/p 2L NSS in ED followed by 1 bag at 250 ml/hr - Continued fluid resucitation 5.1 Ordered 500 cc bolus followed by NSS @ 170 mL/h (1.5x maintenance) - Pain Management Patient notes that she has had her pain primarily controlled at home with combinations of acetaminophen and ibuprofen Acetaminophen 650 mg by mouth every 6 hours PRN for mild pain or fever Toradol 10 mg IV every 6 hours PRN for moderate pain Morphine sulfate 4 mg IV every 3 hours PRN for severe pain - Breast Cancer Management Continue anastrozole [address] Estrada contacted, pending return call - Potential need for drain removal for source control, will pend surgeon's recommendation Reactive airways disease- Continue albuterol sulfate HFA 2 puffs every 4 hours as needed Hypothyroidism- Continue both levothyroxine and liothyronine Depression- Continue sertraline and venlafaxine Admission and Anticipated Discharge Date Admission Date: December 10, 2023 Supervising Physician Co-Signing Physician Notes Resident Supervision of Student Note: Performed noguera elements of history and physical. Patient with bilateral breast cancer and lymph note metastasis who pre sented to hospital for worsening erythema and edema surrounding ANAND drain site and associated cloudy output from drain. Patient notes feeling improved today, but that she is still having pain at the drain site. Physical examination shows erythema, edema, and warmth surrounding the drain sites. Drains continue to drain serosanguineous fluid with scant purulent material. Small tender hematoma/fluid collection at posterior/superior aspect of back incision. Physical examination otherwise unremarkable. Patient with low BP at baseline, but hypotensive during admission. Continue IVF resuscitation and antibiotics (Dapto/Cefepime) for sepsis, cultures pending. Continue pain management. Contacted [facility] surgeon regarding continuation of ANAND drains vs removal for source control. Awaiting return call. Attending Physician Supervision Note: I independently interviewed and examined the patient and verified the noguera history and physical, reviewed labs and image studies and agree with findings and care plan noted above. Subjective The patient is a 48-year-old female with history of b/l breast cancer ER+ with metastasis to the lymph nodes, status post left breast flap surgery 1-1/2 weeks ago, hypercholesterolemia, vitamin D deficiency, hypothyroidism, GERD without esophagitis, migraine headache, psoriasis, Raynaud's disease and reactive airway disease presenting to the ED with fever, chills, body ache, and nausea. Patient had her first left breast application security specialist placed in Mar 2022 but after radiation therapy, the skin necrosed and required reconstruction with back muscle. Currently on Anastrozole and Zoladex for breast cancer therapy. Patient had been doing well postoperatively, however, this morning she awoke with the above symptoms and noticed a change in drainage from the 2 chest drains from clear to cloudy and mixed with either pus or fat. Currently has some pain on the left upper flank. Review of Systems Review of Systems: The patient denies palpitations, SOB, dyspnea on exertion, cough, lower extremity swelling, sore throat, vomiting, diarrhea, constipation, abdominal pain, pelvic pain, blood in urine or stool, dysuria, urinary frequency or urgency, lightheadedness, dizziness, headache. The review of systems is otherwise negative other than for that already noted above, and at least 10 systems have been reviewed. Physical Exam Physical Exam: The patient is awake, alert and oriented 3, well developed and well nourished, lying in bed and in no acute distress. HEENT--PERRL, EOMI, mucous membranes and oropharynx normal Heart--normal S1 and S2. No murmurs, rubs or gallops. Lungs--clear bilaterally, no respiratory distress, no accessory muscle use. Abdomen--normal bowel sounds and soft. Nontender. Nondistended Extremities--no cyanosis or clubbing. No edema. Dermatologic--status post skin flap surgery with 2 drains draining serosanguineous fluid with pus, mild erythema surrounding incision line on the left breast, warm and mildly tender, hematoma on the tip of the left back incision Neurologic--cranial nerves II through XII grossly intact. Results & Data Results & Data Vital Signs (Past 12 Hours) Vital Signs Pulse Pulse Resp BP BP Pulse Ox O2 Del Method 12/11/23 07:20 108 H 12/11/23 06:10 108 H 31 H 90 12/11/23 06:00 112 H 29 H 92/64 L 92 Room Air 12/11/23 05:50 107 H 30 H 90 12/11/23 05:41 114 H 32 H 90 12/11/23 05:32 107 H 34 H 90 12/11/23 05:20 110 H 29 H 92 12/11/23 05:10 112 H 28 H 93 12/11/23 05:00 115 H 30 H 100/60 93 Room Air 12/11/23 04:50 115 H 31 H 93 12/11/23 04:40 115 H 31 H 94 12/11/23 04:30 112 H 30 H 94 12/11/23 04:20 110 H 34 H 95 12/11/23 04:10 110 H 29 H 95 12/11/23 04:00 117 H 25 H 102/54 L 96 Room Air 12/11/23 03:50 111 H 31 H 94 12/11/23 03:40 109 H 32 H 94 12/11/23 03:30 108 H 28 H 95 12/11/23 03:21 106 H 20 98 12/11/23 03:14 111 H 10 L 96 12/11/23 03:00 107 H 33 H 122/65 96 Room Air 12/11/23 02:50 108 H 29 H 95 12/11/23 02:40 109 H 27 H 97 12/11/23 02:32 105 H 28 H 98 12/11/23 02:27 103 H 12/11/23 02:20 102 H 18 100 12/11/23 02:10 107 H 15 97 12/11/23 02:00 90/57 L 12/11/23 02:00 109 H 17 96 12/11/23 01:51 111 H 20 98 12/11/23 01:51 89/66 L 12/11/23 01:50 108 H 13 12/11/23 01:40 112 H 27 H 93 12/11/23 01:30 112 H 28 H 94 12/11/23 01:20 111 H 20 95 12/11/23 01:10 111 H 17 107/55 L 96 Room Air 12/11/23 01:10 110 H 18 107/55 L 96 Room Air 12/11/23 01:09 110 H 18 97 12/11/23 01:00 110 H 20 95 12/11/23 00:50 120 H 16 95 12/11/23 00:40 115 H 20 95 12/11/23 00:30 112 H 18 94 12/11/23 00:21 112 H 18 93 12/11/23 00:10 111 H 21 97 12/11/23 00:05 120 H 23 96 12/10/23 23:50 114 H 21 96 12/10/23 23:40 111 H 21 97 12/10/23 23:30 110 H 23 97 12/10/23 23:20 110 H 21 97 12/10/23 23:10 107 H 19 96 12/10/23 23:00 111 H 13 12/10/23 22:47 107 H 12/10/23 22:14 102 H 19 108/69 99 Room Air 12/10/23 20:18 98 H 18 104/68 99 Room Air Diagnostic Findings Chest CT findings: 1. Left breast implant, new from prior exam, appearing collapsed. It is unclear if this is intentional or reflects intracapsular rupture. 2. No abscess visualized. Soft tissue swelling and edema surrounding the left breast implant and extending to the posterior left chest wall, with some regions of suspected subcutaneous hematoma formation. Two subcutaneous drainage catheters are in place extending to the posterior left chest wall. Resident Activity Tracking Resident Involvement: Resident Care Provided Care Provided: [facility] Medicine
[2023-12-11] MEDS: SODIUM CHLORIDE 0.9% 500 ML IV ONE (08:15)
[2023-12-11] MEDS: ANASTROZOLE 1 MG TAB PO SCH (08:18)
[2023-12-11] MEDS: CHOLECALCIFEROL 25 MCG (1000 UNITS) TAB PO SCH (08:19)
[2023-12-11] MEDS: LIOTHYRONINE SODIUM 5 MCG TAB PO SCH (08:20)
[2023-12-11] MEDS: MULTIVITAMIN TAB PO SCH (08:20)
[2023-12-11] MEDS: VENLAFAXINE HCL XR 150 MG CAPXR PO SCH (08:21)
[2023-12-11] MEDS: SERTRALINE HCL 50 MG TABLET PO SCH (08:21)
[2023-12-11] MEDS: LORATADINE 10 MG TAB PO SCH (08:22)
[2023-12-11] MEDS: LACTOBACILLUS ACIDOPHILUS 1 GM PACK PO SCH (08:24)
[2023-12-11] MEDS: DAPTOmycin 300 MG in SYRINGE 0 ML IV SCH (08:32)
[2023-12-11] MEDS: SODIUM CHLORIDE 0.9% 1,000 ML IV SCH (08:47)
[2023-12-11] MEDS ORDERED: THYROMIN PO SCH (09:00)
[2023-12-11] MEDS: cefTRIAXone SODIUM 2,000 MG/50 ML BAG IV SCH (18:12)
[2023-12-11] MEDS: ACETAMINOPHEN 325 MG TAB PO PRN (20:12)
--- OUTSIDE RECORDS SUMMARY | 2023-12-12 01:41 | External Medical Summary | Continuity of Care Document ---
Author Name Unknown Organization [facility] [address] [facility] [address] [place] [id number] Care Team Providers Care Convalescent Sitter Name Role Phone Rebekah Fraire Primary Care Physician [phone] Encounter [facility] [phone] Date(s): 12/06/23 - 12/06/23 [facility] [address] [facility] [address], [address] [place] [address] [phone] Encounter Diagnosis Post-operative state(Discharge Diagnosis) - 12/06/23 Discharge Disposition: Home or Self Care Attending Physician: MARIA INES Su Haunna Referring Physician: DO Estrada Dino J Allergies, Adverse Reactions, Alerts No Known Medication Allergies Substance Reaction Severity Status Animal dander Asthma Active Dust Asthma Active Allergy Not found in Search 1 Asthma Active 1seasonal allergies Assessment and Plan Extracted from: Title:Clinical Document Author:MARIA INES Su Ha unna Date:12/06/23 PLASTIC RECONSTRUCTIVE SURGERY OUTPATIENT NOTE Name: ISABELLA MARIE Patient Number: [id number] : 1975 Date of Service: 12/06/2023 Chief Complaint: _Acquired absence of breast HPI: _Patient follows up in plastic surgery clinic after failing her reconstruction previously from radiation. She is therefore gone through a latissimus flap with supervisor beater room coverage. She has [address] only 1 of which meets criteria. She denies any fever or malaise. She has not had any drainage. She feels she is following her restrictions appropriately. Her pain has been minimal. Current Home Meds: (Last Updated 12/05 10:44) acetaminophen/butalbital/caffeine (acetaminophen/butalbital/caffeine 325 mg-50 mg-40 mg oral tablet) 30 each, 0 Refill(s), TAKE 1 TABLET BY MOUTH EVERY 4 HOURS NEEDED FOR MIGRAINE HEADACHE Responsible Provider: REBEKAH FRAIRE 11/19 10:49 acetaminophen (Tylenol) 1,000 mg PO q8h PRN - S Candido 04/10 10:54 albuterol (albuterol CFC free 90 mcg/inh MDI) 1 puff inhaled qid PRN: as needed for wheezing anastrozole (anastrozole 1 mg oral tablet) 1 mg PO Daily bifidobacterium-lactobacillus (Probiotic Formula) 1 cap PO Daily cetirizine (cetirizine 10 mg oral tablet) 10 mg PO Daily PRN: as needed for allergy symptoms cholecalciferol (Vitamin D3 5000 intl units (125 mcg) oral capsule) 125 mcg PO Daily ibuprofen 1,000 mg PO q8h levothyroxine (levothyroxine 100 mcg (0.1 mg) oral tablet) 90 each, 0 Refill(s), TAKE 1 TABLET BY MOUTH EVERY DAY Responsible Provider: LION MARIE 11/19 10:49 levothyroxine (levothyroxine 112 mcg (0.112 mg) oral capsule) 100 mcg PO Daily meloxicam (meloxicam 5 mg oral capsule) meloxicam (meloxicam 15 mg oral tablet) 30 each, 0 Refill(s), TAKE 1 TABLET BY MOUTH DAILY NEEDED FOR PAIN Responsible Provider: REBEKAH FRAIRE 11/19 10:49 multivitamin with minerals (Calcium and Magnesium oral tablet) 1 tab PO Daily oxyCODONE (oxyCODONE 5 mg oral tablet) 5 mg PO q6h PRN: as needed for pain sertraline 75 mg PO Daily unknown medication (zoladex) once a month unlisted medication (Thyromin) 1 tablet po daily unlisted medication (Liothyrinine) 5mcg po daily unlisted medication (Medical Marijuana) venlafaxine (venlafaxine 150 mg oral capsule, extended release) 150 mg PO Daily Allergies and Sensitivities: No Known Medication Allergies Allergy Not found in Search(Asthma) Animal dander(Asthma) Dust(Asthma) Past Medical History: Problems: History of breast cancer Infection of right elbow Pre-op exam COVID-19 vaccine series completed Jagjit's thyroiditis Mixed connective tissue disease Arthritis Raynauds syndrome Degenerative disc disease, lumbar Migraines Hiatal hernia Heartburn Depression Anxiety Asthma OBJECTIVE Vitals: Last Updated 12/06/23 10:41 Date Temp BP Location Pulse RR SpO2 Pain 12/06/23 37.1 105/68 Right Arm, Non 98 3 11/30/23 36.5 97/59 Right Arm 102 16 95 11/30/23 4 Vital Signs are the last 3 documented. No Orthostatic Data Available Height and Weight: Last Updated 11/29/23 06:20 Date BMI Wt(kg) Wt(lb) Method Ht(cm) (ft-in) Method 11/29/23 28.11 69.3 152 157 5-2 11/20/23 27.62 70.7 156 Standing Scale 160 5-3 Patient stated 05/22/23 67 147 Standing Scale Heights and Weights are the last 3 documented. Physical Exam _Female patient alert oriented in no acute distress. Moist mucous membranes. Afebrile. Incisions over her left chest wall as well as her back are all well- healing no areas of wound dehiscence erythema or concern for infection. Nipple appears viable. Her flap is well-perfused without any areas of concern for tissue loss. She has typical postoperative resolving ecchymosis and edema. Her #1 drain was removed without any difficulty. All of her drains are putting out clear serous fluid. No palpable fluid collections over any of her surgical sites. ASSESSMENT: _Postop PLAN: _Discussed with patient her restrictions at this time as well as expectations for healing. She lives towards [place] and does plan to reach out to the nurse practitioner who helps with drain removals and expansions. She has seen Emmy in the past. We did take some photos today especially given that drains are likely going to be taken out in a separate office. Discussed with patient concerning changes to look out for. She does have a follow-up with her surgeon. If she has any other questions she will let us know. --- Please note that some or all of this documentation was created using speech recognition software which may result in formatting, grammatical, pronoun and/or spelling errors. Incomplete sentences and random word insertion are also possible due to software limitations and background noise. If there is any questions or concerns regarding the information presented here, please feel free to contact me. Medications acetaminophen/butalbital/caffeine 325 mg-50 mg-40 mg oral tablet Start: 11/20/23 10:49:00 EDT, 30 each, 0 Refill(s), TAKE 1 TABLET BY MOUTH EVERY 4 HOURS NEEDED FOR MIGRAINE HEADACHE Start Date: 11/20/23 Status: Ordered albuterol CFC free 90 mcg/inh MDI Start: 11/15/21 12:37:00 EDT, 1 puff, inhaled, qid, PRN: as needed for wheezing Start Date: 11/15/21 Status: Ordered anastrozole 1 mg oral tablet Start: 09/10/22 11:03:00 EST, 1 tab, PO, Daily Start Date: 09/10/22 Status: Ordered Calcium and Magnesium oral tablet Start: 11/15/21 12:41:00 EDT, 1 tab, PO, Daily Start Date: 11/15/21 Status: Ordered cetirizine 10 mg oral tablet Start: 11/15/21 12:39:00 EDT, 1 tab, PO, Daily, PRN: as needed for allergy symptoms Start Date: 11/15/21 Status: Ordered ibuprofen Start: 04/10/22 10:54:00 EDT, 1,000 mg =, PO, q8h Start Date: 04/10/22 Status: Ordered levothyroxine 100 mcg (0.1 mg) oral tablet Start: 11/20/23 10:49:00 EDT, 90 each, 0 Refill(s), TAKE 1 TABLET BY MOUTH EVERY DAY Start Date: 11/20/23 Status: Ordered levothyroxine 112 mcg (0.112 mg) oral capsule Start: 07/30/22 9:09:00 EST, 100 mcg =, PO, Daily Start Date: 07/30/22 Status: Ordered Liothyrinine Start: 11/15/21 12:36:00 EDT, Liothyrinine, See Instructions, 5mcg po daily Start Date: 11/15/21 Status: Ordered Medical Marijuana Start: 02/20/22 14:44:00 EDT, Medical Marijuana, See Instructions Start Date: 02/20/22 Status: Ordered meloxicam 15 mg oral tablet Start: 11/20/23 10:49:00 EDT, 30 each, 0 Refill(s), TAKE 1 TABLET BY MOUTH DAILY NEEDED FOR PAIN Start Date: 11/20/23 Status: Ordered meloxicam 5 mg oral capsule Start: 11/20/23 10:47:00 EDT Start Date: 11/20/23 Status: Ordered oxyCODONE 5 mg oral tablet Start: 11/29/23 7:35:00 EDT, 1 tab, PO, q6h, Disp# 12 tab, Refills: 0, PRN: as needed for pain, Pharmacy: [facility] Start Date: 11/29/23 Status: Ordered Probiotic Formula Start: 11/15/21 12:45:00 EDT, 1 cap, PO, Daily Start Date: 11/15/21 Status: Ordered sertraline Start: 11/15/21 12:38:00 EDT, 75 mg =, PO, Daily Start Date: 11/15/21 Status: Ordered Thyromin Start: 11/15/21 12:46:00 EDT, Thyromin, See Instructions, 1 tablet po daily Start Date: 11/15/21 Status: Ordered Tylenol Start: 04/10/22 10:53:00 EDT, 1,000 mg =, PO, q8h Start Date: 04/10/22 Status: Ordered venlafaxine 150 mg oral capsule, extended release Start: 11/15/21 12:38:00 EDT, 1 cap, PO, Daily Start Date: 11/15/21 Status: Ordered Vitamin D3 5000 intl units (125 mcg) oral capsule Start: 11/15/21 12:41:00 EDT, 1 cap, PO, Daily Start Date: 11/15/21 Status: Ordered zoladex Start: 05/22/23 10:46:00 EDT, zoladex, once a month Start Date: 05/22/23 Status: Ordered Mental Status 12/06/23 Barriers to Learning one year Vision imp airment, Other: glasses Mandatory Health Literacy Documentation Yes Health Literacy Communication Barriers N ever Primary Language Bur[place] Problem List Condition Confirmation Course Effective Dates Status Health St atus Informant Anxiety Confirmed Active Arthritis Confirmed Active Asthma Confirmed Active Mixed connective tissue disease Confirmed Active Degenerative disc disease, lumbar Confirmed Active Depression Confirmed Active Infection of right elbow Confirmed Active Jagjit's thyroiditis Confirmed Active Heartburn Confirmed Active Hiatal hernia Confirmed Active History of breast cancer Confirmed Active COVID-19 vaccine series completed Confirmed Active Migraines Confirmed Active Pre-op exam Confirmed Active Raynauds syndrome Confirmed Active Diagnosis Diagnosis Type Effective Dates Health Status Cl inical Service Informant Post-operative state Discharge Diagnosis 12/06/23 Procedures Procedure Date Related Diagnosis Body Site Status Bilateral mastectomy 1 04/03/22 Co mpleted Port 11/2021 Completed Lymph node biopsy 2 10/25/21 Compl eted Breast biopsy sample 3 09/26/21 Co mpleted D&C - Dilatation and curettage 2009 Completed Extraction of wisdom tooth 5 1994 Completed Eye surgery 6 1981 Completed Removal 7 Completed 1B/L Nipple-Sparing Mastectomies with Left [employer] Director guided targeted axillary node excision with SLNBX with Implant based reconstruction 2Left axillary node- positive for metastatic breast disease 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 + 4Miscarriage 5impacted 6"lazy eye" 7port Vital Signs Most recent to oldest [Reference Range]: 1 Temperature [36.5-37.9 DegC] 37.1 DegC (12/06/23 10:41 AM) Heart Rate 98 bpm (12/06/23 10:41 AM) Blood Pressure 105/68mmHg (12/06/23 10:41 AM) Cuff Pulse Pressure 37 mmHg (12/06/23 10:41 AM) BP Location # 1 Right Arm, Non-invasive (12/06/23 10:41 AM) Social History Social History Type Response Smoking Status Never smoked cigaret farhan Sex Female Implantable Device List Procedure Provider Procedure Date Device Type Site Unknown Unknown 11/29/23 Unknown Unknown Device Identifier Serial Number Lot or Batch Number Manufacturing Date Expiration Date Distinct Identification Code MRI Safety Implantable Status Assigning Authority Unknown Unknown N/A Unknown 07/17/28 Unknown Unknown Active Unkn own Procedure Provider Procedure Date Device Type Site Unknown Unknown 04/03/22 Unknown Unknown Device Identifier Serial Number Lot or Batch Number Manufacturing Date Expiration Date Distinct Identification Code MRI Safety Implantable Status Assigning Authority Unknown Unknown N/A Unknown 10/23/25 Unknown Unknown Active Unkn own Unknown Unknown Unknown 09/11/25 Unknown Unknown Active Unk nown Unknown Unknown N/A Unknown 10/03/23 Unknown Unknown Active Unkn own Unknown Unknown Unknown 09/11/25 Unknown Unknown Active Unk nown PRS Outpt Note * MARIA INES Su, Malcolm: PERFORM Event Display: PRS Outpt Note Authored Date: [id number] PLASTIC RECONSTRUCTIVE SURGERY OUTPATIENT NOTE Name: ISABELLA MARIE Patient Number: [id number] : 1975 Date of Service: 12/06/2023 Chief Complaint: _Acquired absence of breast HPI: _Patient follows up in plastic surgery clinic after failing her reconstruction previously fromradiation. She is therefore gone through a latissimus flap with supervisor beater room coverage. She has [address] only 1 of which meets criteria. She denies any fever or malaise. She has not had any drainage. She feels she is following her restrictions appropriately. Her pain has been minimal. Current Home Meds: (Last Updated 12/05 10:44) acetaminophen/butalbital/caffeine (acetaminophen/butalbital/caffeine 325 mg-50 mg-40 mg oral tablet) 30 each, 0 Refill(s), TAKE 1 TABLET BY MOUTH EVERY 4 HOURS NEEDED FOR MIGRAINE HEADACHE Responsible Provider: REBEKAH FRAIRE 11/19 10:49 acetaminophen (Tylenol) 1,000 mg PO q8h PRN - S Candido 04/10 10:54 albuterol (albuterol CFC free 90 mcg/inh MDI) 1 puff inhaled qid PRN: as needed for wheezing anastrozole (anastrozole 1 mg oral tablet) 1 mg PO Daily bifidobacterium-lactobacillus (Probiotic Formula) 1 cap PO Daily cetirizine (cetirizine 10 mg oral tablet) 10 mg PO Daily PRN: as needed for allergy symptoms cholecalciferol (Vitamin D3 5000 intl units (125 mcg) oral capsule) 125 mcg PO Daily ibuprofen 1,000 mg PO q8h levothyroxine (levothyroxine 100 mcg (0.1 mg) oral tablet) 90 each, 0 Refill(s), TAKE 1 TABLET BY MOUTH EVERY DAY Responsible Provider: LION MARIE 11/19 10:49 levothyroxine (levothyroxine 112 mcg (0.112 mg) oral capsule) 100 mcg PO Daily meloxicam (meloxicam 5 mg oral capsule) meloxicam (meloxicam 15 mg oral tablet) 30 each, 0 Refill(s), TAKE 1 TABLET BY MOUTH DAILY NEEDED FOR PAIN Responsible Provider: REBEKAH FRAIRE 11/19 10:49 multivitamin with minerals (Calcium and Magnesium oral tablet) 1 tab PO Daily oxyCODONE (oxyCODONE 5 mg oral tablet) 5 mg PO q6h PRN: as needed for pain sertraline 75 mg PO Daily unknown medication (zoladex) once a month unlisted medication (Thyromin) 1 tablet po daily unlisted medication (Liothyrinine) 5mcg po daily unlisted medication (Medical Marijuana) venlafaxine (venlafaxine 150 mg oral capsule, extended release) 150 mg PO Daily Allergies and Sensitivities: No Known Medication Allergies Allergy Not found in Search(Asthma) Animal dander(Asthma) Dust(Asthma) Past Medical History: Problems: History of breast cancer Infection of right elbow Pre-op exam COVID-19 vaccine series completed Jagjit's thyroiditis Mixed connective tissue disease Arthritis Raynauds syndrome Degenerative disc disease, lumbar Migraines Hiatal hernia Heartburn Depression Anxiety Asthma OBJECTIVE Vitals: Last Updated 12/06/23 10:41 Date Temp BP Location Pulse RR SpO2 Pain 12/06/23 37.1 105/68 Right Arm, Non 98 3 11/30/23 36.5 97/59 Right Arm 102 16 95 11/30/23 4 Vital Signs are the last 3 documented. No Orthostatic Data Available Height and Weight: Last Updated 11/29/23 06:20 Date BMI Wt(kg) Wt(lb) Method Ht(cm) (ft-in) Method 11/29/23 28.11 69.3 152 157 5-2 11/20/23 27.62 70.7 156 Standing Scale 160 5-3 Patient stated 05/22/23 67 147 Standing Scale Heights and Weights are the last 3 documented. Physical Exam _Female patient alert oriented in no acute distress. Moist mucous membranes. Afebrile. Incisions over her left chest wall as well as her back are all well- healing no areas of wound dehiscence erythema or concern for infection. Nipple appears viable. Her flap is well-perfused without any areas of concern for tissue loss. She has typical postoperative resolving ecchymosis and edema. Her #1 drain was removed without any difficulty. All of her drains are putting out clear serous fluid. No palpable fluid collections over any of her surgical sites. ASSESSMENT: _Postop PLAN: _Discussed with patient her restrictions at this time as well as expectations for healing. She lives towards [place] and does plan to reach out to the nurse practitioner who helps with drain removals and expansions. She has seen Emmy in the past. We did take some photos today especiallygiven that drains are likely going to be taken out in a separate office. Discussed with patient concerning changes to look out for. She does have a follow-up with her surgeon. If she has any other questions she will let us know. --- Please note that some or all of this documentation was created using speech recognition software which may result in formatting, grammatical, pronoun and/or spelling errors. Incomplete sentences and random word insertion are also possible due to software limitations and background noise. If there is any questions or concerns regarding the information presented here, please feel free to contact me. Electronic Signature on File Electronically Reviewed/Signed by: Malcolm Su PA-C Author Signature Dt/Tm:12/06/2023 11:15 AM Division of Plastic and Reconstructive Surgery HB Patient Care team information Care Team Personnel Name: Chapis Austin Ann Position: Pharmacist Schedule II Member Role: Pharmacy - Lifetime Name: MD Fraire Cara M Position: Referring DIRECT Member Role: Primary Care Provider Address: Address: [address] [place] [id number] Name: Chapis Vásquez Jennifer Position: Pharmacist Schedule II Member Role: Pharmacy - Lifetime Name: Chapis Sanderson Brittani Position: Pharmacist Schedule II Member Role: Pharmacy - Lifetime Care Team Related Persons Name: SIS MARIE Name: SIS MARIE Address: home [address], [place] [id number]
--- OUTSIDE RECORDS SUMMARY | 2023-12-12 01:41 | External Medical Summary | Continuity of Care Document ---
Author Name Unknown Organization [facility] Address [address] [place] [phone] Care Team Providers Care Real Estate Office Manager Name Role Phone Rebekah Fraire Primary Care Physician [phone] [id number] Date(s): 11/29/23 - 11/30/[address] [phone] Encounter Diagnosis Deformity of reconstructed breast(Final) - Depression, unspecified(Final) - Anxiety disorder, unspecified(Final) - Other chronic pain(Final) - Unspecified asthma, uncomplicated(Final) - Gastro-esophageal reflux disease without esophagitis(Final) - Personal history of malignant neoplasm of breast(Final) - Personal history of irradiation(Final) - Personal history of COVID-19(Final) - Other chcf (current) drug therapy(Final) - Discharge Disposition: Home or Self Care Attending Physician: DO Estrada Dino J Allergies, Adverse Reactions, Alerts No Known Medication Allergies Substance Reaction Severity Status Animal dander Asthma Active Dust Asthma Active Allergy Not found in Search 1 Asthma Active 1seasonal allergies Functional Status 11/30/23 Neurological Symptoms None ADLs Minimal assistance Facial Symmetry Symmetric Gait Steady Swallowing Difficulty None Level of Consciousness Neuro Alert Hallucinations Present None History of Fall in Last 3 Months Lieberman N o Presence of Secondary Diagnosis Lieberman No Use of Ambulatory Aid Lieberman None/bedrest /nurse assist IV/Heparin Lock Fall Risk Lieberman Yes Gait/Transferring Fall Risk Lieberman Normal /bedrest/immobile Mental Status Fall Risk Lieberman Oriented t o own ability Lieberman Fall Risk Score 20 Lieberman Fall Risk No Risk Speech Pattern Clear Medications acetaminophen/butalbital/caffeine 325 mg-50 mg-40 mg oral capsule Start: 11/20/23 10:46:00 EDT, 1 cap, PO, q4h, PRN: as needed for headache Start Date: 11/20/23 Status: Ordered acetaminophen/butalbital/caffeine 325 mg-50 mg-40 mg oral tablet Start: 11/20/23 10:49:00 EDT, 30 each, 0 Refill(s), TAKE 1 TABLET BY MOUTH EVERY 4 HOURS NEEDED FOR MIGRAINE HEADACHE Start Date: 11/20/23 Status: Ordered albuterol CFC free 90 mcg/inh MDI Start: 11/15/21 12:37:00 EDT, 1 puff, inhaled, qid, PRN: as needed for wheezing Start Date: 11/15/21 Status: Ordered Amino Acid Stevens Start: 11/15/21 12:40:00 EDT, Amino Acid Stevens, See Instructions, 1 scoop po daily Start Date: 11/15/21 Status: Ordered anastrozole 1 [...] allergy symptoms Start Date: 11/15/21 Status: Ordered glutamine oral powder for reconstitution Start: 11/15/21 12:43:00 EDT, 5 g =, PO, daily Start Date: 11/15/21 Status: Ordered ibuprofen Start: [...] 0, PRN: as needed for pain, Pharmacy: [facility] [place] Start Date: 11/29/23 Status: Ordered Probiotic Formula Start: 11/15/21 12:45:00 EDT, 1 cap, PO, Daily Start Date: 11/15/21 Status: Ordered senna Start: 04/08/23 11:00:00 EDT, 1 tab, PO, Daily Start Date: 04/08/23 Status: Ordered sertraline Start: 11/15/21 12:38:00 EDT, [...] Start Date: 05/22/23 Status: Ordered Mental Status 11/29/23 Communication Barrier Present No Problem List Condition Confirmation Course Effective Dates Status Health St atus Informant Anxiety Confirmed Active Arthritis Confirmed Active Asthma Confirmed Active Mixed connective tissue disease Confirmed Active Degenerative disc disease, lumbar Confirmed Active Depression Confirmed Active Infection of right elbow Confirmed Active Yvette's thyroiditis Confirmed Active Heartburn Confirmed Active Hiatal hernia Confirmed Active History of breast cancer Confirmed Active COVID-19 vaccine series completed Confirmed Active Migraines Confirmed Active Pre-op exam Confirmed Active Raynauds syndrome Confirmed Active Procedures Procedure Date Related Diagnosis Body Site Status Bilateral mastectomy 1 04/03/22 Co mpleted Port 11/2021 Completed Lymph node biopsy 2 10/25/21 Compl eted Breast biopsy sample 3 09/26/21 Co mpleted D&C - Dilatation and curettage 2009 Completed Extraction of wisdom tooth 1994 Completed Eye surgery 6 1981 Completed Removal 7 Completed 1B/L Nipple-Sparing Mastectomies with Left Lilly Mixologist guided targeted axillary node excision with SLNBX with Implant based reconstruction 2Left axillary node- positive for metastatic breast disease 3Left IDC with LN + ER/IL/HER2 + 4Miscarriage 5impacted 6"lazy eye" 7port Vital Signs Most recent to oldest [Reference Range]: 1 2 3 Height 157 cm (11/29/23 6:20 AM) Patient Weight 69.3 kg (11/29/23 6:20 AM) Body Mass Index 28.11 kg/m2 (11/29/23 6:20 AM) Temperature [36.5-37.9 DegC] 36.5 DegC (11/30/23 9:53 AM) 36.7 DegC (11/30/23 5:00 AM) 36.6 DegC (11/30/23 3:42 AM) Heart Rate 102 bpm (11/30/23 9:53 AM) 95 bpm (11/30/23 5:00 AM) 102 bpm (11/30/23 3:42 AM) Respiratory Rate 16 br/min (11/30/23 9:53 AM) 16 br/min (11/30/23 5:00 AM) 18 br/min (11/30/23 3:42 AM) Blood Pressure 97/59mmHg (11/30/23 9:53 AM) 99/59mmHg (11/30/23 5:00 AM) 105/65mmHg (11/30/23 3:42 AM) Mean Blood Pressure 71 mmHg (11/30/23 9:53 AM) 71 mmHg (11/30/23 5:00 AM) 77 mmHg (11/30/23 3:42 AM) Cuff Pulse Pressure 38 mmHg (11/30/23 9:53 AM) 40 mmHg (11/30/23 5:00 AM) 40 mmHg (11/30/23 3:42 AM) BP Location # 1 Right Arm (11/30/23 9:53 AM) Right Arm, Non-invasive (11/30/23 5:00 AM) Right Arm (11/30/23 3:42 AM) Social History Social History Type Response [...] Unknown 09/11/25 Unknown Unknown Active Unk nown Anes H&P * MD Tirso, Jordan Chen: VERIFY, MODIFY, PERFORM, SIGN Event Display: Anes H&P Authored Date: [id number] Patient: ISABELLA MARIE Age: 48 years Sex: Female : 1975 Associated Diagnoses: None Author: MD Chahal Joseph George Preoperative Information Origination of H&P: SDU. Pre-Operative Diagnosis: Hx of breast cancer . Anesthiesia Preop Info: Procedure: LEFT BREAST RECONSTRUCTION WITH LATISSIMUS DORSI FLAP, POSSIBLE PLACEMENT OF TISSUE TECHNICIAN ASSISTANT , POSSIBLE ACELLULAR DERMAL MATRIX, POSSIBLE REMOVAL OF LEFT NIPPLE Date: 11/29/23 07:30 Surgeons: DO Estrada Dino J Diagnosis: History of breast cancer . Nursing Information: Nurse Pre Procedure Screening Assessment 11/13/2023 10:33 EDT Radiation and Oncology Yes Cardiovascular History None Reported Anesthesia History Yes PostOp Nausea & Vomiting No Family Anesthesia History No prior anesthesia complications Pulmonary History Of Asthma, Other: well controlled Functional Capacity 4-6 METs Moderate Climbing a flight of stairs, No chest pain or dyspnea with this level of exercise Endocrine History Of Hypothyroidism, Other: yvette's, stable thyroid levels and medication dose Gastrointestinal History Of GERD, Hiatal Hernia Psychiatric History Of Depression, Anxiety Neurologic History Of Migraine headaches Orthopedic History Of Degenerative Disk Disease, Chronic back pain Cancer Type breast Type of Chemo Yes Medical History Narrative mixed connective tissue disorder . History of Present Illness 48 year old female with hx of breast cancer now presenting for above procedure. PMH includes asthma, Yvette's thyroiditis, depression, anxiety, migraines, chronic back pain, and degenerative disc disease. METS 4-6 Had mild PONV previously. No i.v line/BP cuff on the left UL as she had left sided lymph node clearance with mastectomy. (I agree with the history and examination and have assessed the patient myself preoperatively. No new concerns, chest clear, NPO adequate. Consented for anesthesia. - Dr. Chahal) Medical History Medical Devices: Medical Devices: none . Health Status Allergies: Allergic Reactions (Selected) Severity Not Documented Allergy Not found in Search- Asthma. Animal dander- Asthma. Dust- Asthma. No Known Medication Allergies. Medications: Medication List (Selected) Documented Medications Documented Amino Acid Stevens: See Instructions, 1 scoop po daily Calcium and Magnesium oral tablet: 1 tab, PO, Daily Liothyrinine: See Instructions, 5mcg po daily Medical Marijuana: See Instructions Probiotic Formula: 1 cap, PO, Daily Thyromin: See Instructions, 1 tablet po daily Tylenol: 1,000 mg, PO, q8h Vitamin D3 5000 intl units (125 mcg) oral capsule: 1 cap, PO, Daily acetaminophen/butalbital/caffeine 325 mg-50 mg-40 mg oral capsule: 1 cap, PO, q4h, PRN: as needed for headache acetaminophen/butalbital/caffeine 325 mg-50 mg-40 mg oral tablet: 30 each, 0 Refill(s), TAKE 1 TABLET BY MOUTH EVERY 4 HOURS NEEDED FOR MIGRAINE HEADACHE albuterol CFC free 90 mcg/inh MDI: 1 puff, inhaled, qid, PRN: as needed for wheezing anastrozole 1 mg oral tablet: 1 tab, PO, Daily cetirizine 10 mg oral tablet: 1 tab, PO, Daily, PRN: as needed for allergy symptoms glutamine oral powder for reconstitution: 5 g, PO, daily ibuprofen: 1,000 mg, PO, q8h levothyroxine 100 mcg (0.1 mg) oral tablet: 90 each, 0 Refill(s), TAKE 1 TABLET BY MOUTH EVERY DAY levothyroxine 112 mcg (0.112 mg) oral capsule: 100 mcg, PO, Daily meloxicam 15 mg oral tablet: 30 each, 0 Refill(s), TAKE 1 TABLET BY MOUTH DAILY NEEDED FOR PAIN meloxicam 5 mg oral capsule: senna: 1 tab, PO, Daily sertraline: 75 mg, PO, Daily venlafaxine 150 mg oral capsule, extended release: 1 cap, PO, Daily zoladex: once a month. Problem List: All Problems Heartburn / SNOMED CT 67088890 / Confirmed Hiatal hernia / SNOMED CT 909755347 / Confirmed Asthma / SNOMED CT 520344461 / Confirmed Anxiety / SNOMED CT 83057822 / Confirmed Depression / SNOMED CT 58215301 / Confirmed Degenerative disc disease, lumbar / SNOMED CT 73477661 / Confirmed Raynauds syndrome / SNOMED CT 363125703 / Confirmed Arthritis / SNOMED CT 1219017 / Confirmed Yvette's thyroiditis / SNOMED CT 28593792 / Confirmed Migraines / SNOMED CT 30725205 / Confirmed Mixed connective tissue disease / SNOMED CT 4176421238 / Confirmed COVID-19 vaccine series completed / SNOMED CT 3833115162 / Confirmed Pre-op exam / SNOMED CT 824649821 / Confirmed Infection of right elbow / SNOMED CT 3117789940 / Confirmed History of breast cancer / SNOMED CT 2110496533 / Confirmed Canceled: Hypothyroid / SNOMED CT 82366196. Histories Procedure History: Bilateral mastectomy ([id number]) on 04/03/2022 at 46 Years. Comments: 04/18/2022 13:01 EDT - Gemberling, IT LEAD, Haley B/L Nipple-Sparing Mastectomies with Left Lilly Mixologist guided targeted axillary node excision with SLNBX with Implant based reconstruction Port ([id number]) in the month of 11/2021 at 46 Years. Lymph node biopsy ([id number]) on 10/25/2021 at 46 Years. Comments: 11/15/2021 14:20 ZACKERY Hinds RN, Christine A Left axillary node- positive for metastatic breast disease Breast biopsy sample ([id number]) on 09/26/2021 at 46 Years. Comments: 11/15/2021 14:19 ZACKERY Hinds RN, Christine A Left IDC with LN + ER/IL/HER2 + D&C - Dilatation and curettage ([id number]) in 2009 at 35 Years. Comments: 11/15/2021 12:28 ZACKERY Hinds RN, Christine A Miscarriage Extraction of wisdom tooth ([id number]) in 1994 at 20 Years. Comments: 11/15/2021 12:27 ZACKERY Hinds RN, Christine A impacted Eye surgery ([id number]) in 1981 at 7 Years. Comments: 11/15/2021 12:26 ZACKERY Hinds RN, Christine A "lazy eye" Removal ([id number]). Comments: 04/08/2023 10:56 EZT - SHAYNE Rey Shannon R port. 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 Never smoked cigarettes Other Tobacco Use: Never used other tobacco products Alcohol: Recreational Drugs: . Physical Examination VS/Measurements: Vital Signs 11/29/2023 06:05 EDT MEWS Score 0 11/29/2023 06:05 EDT Temperature 36.4 DegC LOW Temperature Route Temporal Heart Rate 85 bpm Respiratory Rate 17 br/min Systolic Blood Pressure 117 mmHg Diastolic Blood Pressure 77 mmHg BP Location # 1 Right Arm BP Cuff Size Regular SpO2 95 % . General: Alert and oriented. Airway: Mallampati classification: II (soft palate, fauces, uvula visible). Mouth: Within normal limits, Teeth ( Within normal limits ). Head: Normocephalic. Neck: Full range of motion. Respiratory: Lungs are clear to auscultation, Respirations are non-labored, Breath sounds are equal. Cardiovascular: Normal rate, Regular rhythm, No murmur. Anesthesiologist Assessment and Plan Problems: No active cardiac conditions. Risk of major adverse cardiac event (Revised Cardiac Risk Index): 0 = 0.4%. ASA Classification: Class II. Anesthetic Plan: Anesthetic technique discussed: General anesthesia. Induction discussed: Intravenously. Airway plan discussed: Oral endotracheal tube. Risks discussed: Nausea-vomiting, Headache, Sore throat, Dental injury, Eye injury, Allergic reaction, Serious complications, Nerve damage, Aspiration. Informed consent: Signed by patient. History, Physical Exam, Assessment and Plan Completed: 11/29/2023 07:00:00, MD Tirso, Jordan Chen. 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 She is seen in the presence of a medical writer. Exam she is awake alert and oriented x 3 she is in no apparent distress. On the right-hand side shehas a fully filled tissue zipper cutter in the prepectoral position with a preserved nipple areolar complex. On the left-hand side she is devoid of any reconstruction she has a heavy we radiated scar burden and a contracted nipple areolar complex. The patient desires to proceed with a left breast reconstruction with a latissimus flap and tissue zipper cutter which is already scheduled for September 2023." Review Of Systems: Review of systems completed and negative except for pertinent positives mentioned in HPIabove. Past Medical History: Problems: History of breast cancer Infection of right elbow Pre-op exam COVID-19 vaccine series completed Yvette's thyroiditis Mixed connective tissue disease Arthritis Raynauds syndrome Degenerative disc disease, lumbar Migraines Hiatal hernia Heartburn Depression Anxiety Asthma Procedure History Procedure Procedure Date Comments Removal - port Bilateral mastectomy 04/03/2022 - B/L Nipple-Sparing Mastectomies with Left Lilly Mixologist guided targeted axillary node excision with SLNBX with Implant based reconstruction Port 11/2021 Lymph node biopsy 10/25/2021 - Left axillary node- positive for metastatic breast disease Breast biopsy sample 09/26/2021 - Left IDC with LN +ER/IL/HER2 + D&C - Dilatation and curettage 2009 - Miscarriage Extraction of wisdom tooth 1994 - impacted Eye surgery 1981 - "lazy eye" Allergies and Sensitivities: No Known Medication Allergies Allergy Not found in Search(Asthma) Animal dander(Asthma) Dust(Asthma) Current Home Meds: (Last Updated 11/19 10:49) acetaminophen/butalbital/caffeine (acetaminophen/butalbital/caffeine 325 mg-50 mg-40 mg oral capsule) 1 cap PO q4h PRN: as needed for headache acetaminophen/butalbital/caffeine (acetaminophen/butalbital/caffeine 325 mg-50 mg-40 mg oral [...] mcg) oral capsule) 125 mcg PO Daily glutamine (glutamine oral powder for reconstitution) 5 g PO daily ibuprofen 1,000 mg PO q8h levothyroxine (levothyroxine [...] Magnesium oral tablet) 1 tab PO Daily senna 1 tab PO Daily sertraline 75 mg PO Daily unknown medication (zoladex) once a month unlisted medication (Thyromin) 1 tablet po daily unlisted medication (Liothyrinine) 5mcg po daily unlisted medication (Amino Acid Stevens) 1 scoop po daily unlisted medication (Medical Marijuana) venlafaxine (venlafaxine 150 mg oral capsule, extended release) 150 mg PO Daily No Vital Signs Data Available Initial Wt: No Data Available Physical Exam: (relevant to the procedure, including heart and lung evaluation) General:no acute distress HEENT:EOMI, nares patent, MMM. Heart:nontachycardic Chest:Nonlabored breathing on room air Abdomen:appears soft, NT/ND Extremity:WWP. Skin:Warm and dry. ASSESSMENT:Patient is presenting for the above stated procedure. 1. Admit to the plastic surgery service for stated procedure. 2. NPO for surgery. 3. Begin IV. Start fluids @30mL/hr. Electronic Signature on File Electronically Reviewed/Signed by: Guido Carvalho MD Author Signature Dt/Tm:11/28/2023 09:30 AM Resident Division of Plastic and Reconstructive Surgery Electronically Reviewed/Signed by: Farhad Estrada DO Cosigner Signature Dt/Tm: 11/29/2023 07:17 AM Division of Plastic and Reconstructive Surgery [place] * DO Estrada Dino J: PERFORM Event Display: Pre-OP H & P Authored Date: [id number] SURGICAL HISTORY AND PHYSICAL UPDATE - NO CHANGE Name: ISABELLA MARIE Patient Number: [id number] : 1975 Date of Service: 11/29/2023 Patient identity, procedure and procedure site were identified by me, the attending physician. I have personally seen and examined the patient. The History and Physical was reviewed, and there are nochanges in the patient's condition. I have confirmed that the necessity for the procedure is still p resent. Electronic Signature on File Electronically Reviewed/Signed by: Farhad Estrada DO Author Signature Dt/Tm:11/29/2023 07:17 AM Division of Plastic and Reconstructive Surgery DJ[facility] Surgical operation note * DO Estrada Dino J: PERFORM Event Display: .Operative Report Authored Date: OPERATIVE REPORT Name: ISABELLA MARIE Patient Number: [id number] : 1975 Date of Service: 11/29/23 SURGEON: _Farhad Estrada DO SUPERVISOR [employer]ANK DEPARTMENT(s): _Guido Carvalho MD and Chelsea Whaley MD PREOPERATIVE DIAGNOSIS: _History of breast cancer with failed device breast reconstruction on the left in the setting of previous radiation POSTOPERATIVE DIAGNOSIS: _Same OPERATION PERFORMED: _Preparation of left chest wall with radiated skin excision and preservation of left nipple areolar complex, left breast reconstruction with pedicled latissimus musculocutaneous flap with skin paddle measuring 25 x 8 cm, placement of sub-latissimus derma span tissue zipper cutter LPP FH 14 S filled intraoperatively with 100 mL of sterile injectable saline, intraoperative spy angiogram ANESTHESIA: _General COMPLICATIONS: _None SPECIMENS: _Left inferior mastectomy skin ESTIMATED BLOOD LOSS: _75 mL INDICATIONS: _As above FINDINGS: _Intraoperative fill of left breast tissue zipper cutter that been placed in the sub-latissimus plane with 100 mL sterile injectable saline OPERATION: _ Patient is a pleasant 48-year-old female with her history of left-sided breast cancer for which sheunderwent bilateral nipple sparing mastectomies she had prepectoral tissue zipper cutter insertion. Ultimately she required radiation therapy to the left chest wall. This resulted in wound breakdown on the left and removal of her left breast tissue zipper cutter. She completed the expansion process uneventfully on the right. We discussed reconstructive options. The patient desired to have a left-sided latissimus flap with tissue zipper cutter reinsertion. The patient was aware that she was at high risk of losing the nipple areolar complex. The risk and benefits were explained in detail and she agreed and sig craig the written consent which was scanned into her chart preoperatively. She was identified the morning of the surgery and preoperative markings were made. The patient was then brought back to the operating room. She was laid supine operating table. General endotracheal anesthesia was applied. The patient was repositioned on a beanbag with her right hand side down her left side up. IV antibioticswere administered. The left chest and back were scrubbed and draped in standard surgical fashion. Asurgical timeout was performed and IV antibiotics were administered. We turned our attention on theleft chest wall. I made a transverse incision along the midportion of the skin flaps along the inferior portion of the areolar complex. Superior-inferior skin flaps were elevated off the pectoralis major muscle using electrocautery and ending in her left axilla. We then went to the left back. A flap measuring 25 x 8 cm skin paddle had been designed. It was sharply incised circumferentially. All the edges were beveled out to allow for adequate capture of adipose tissue. We then identified the jeevan rders of the left-sided latissimus muscle. And then the muscle was elevated off the chest wall taking care to preserve the serratus muscle. Once it was completely elevated we did Doppler out a signalin the undersurface of the muscle. It was then delivered through a subcutaneous pocket that was made to connect the left back in the left chest. And was temporarily stapled closed on the left chest wall. It had good inflow and outflow. The left back was then inspected for hemostasis. We placed 2 round 15 Marcel drains in the left back. There was secured to the skin with 2 nylon sutures through separate stab wounds. And the left back was closed in layers with 2-0 PDS in the fascia. 3-0 Monocryl'sdeep dermis 4 Monocryl running subcuticular stitch. The incision was then closed cleanse patted dryDermabond was applied and a protective Primapore dressing was applied. The patient was then repositioned supine. Her bilateral chest wall was reprepped and draped. We then injected 2 mL of ICG dye that had been diluted in 20 mg of ICG dye and 10 mL of sterile saline. There was good perfusion of the flap as well as the residual nipple areolar complex. At that point in time we excised her lower negative radiated mastectomy skin. It was sent off for permanent pathology. We then anchored the superior border of the latissimus to her pectoralis major muscle using 2-0 Vicryl sutures superiorly and then medially and then inferiorly leaving a window laterally. The sublatissimus plane was then irrigated with antibiotic solution which contained 80 mg of gentamicin 1 g of vancomycin and 1 L of normal saline. All the left chest wall was reprepped with Betadine sterile towels were applied our gloves were changed. On the back table I opened the derma span LPP FH 14 S tissue zipper cutter. This was the same size she had on the other side. It was rinsed in antibiotic solution. It was then placed in the sublatissimus plane on top of the pectoralis major muscle. The inferior t abs were secured to the chest wall with 2-0 silk sutures. The lower border of the latissimus musclewas then closed to the IMF using 2-0 Vicryl sutures. We placed a round 15 Marcel drain anteriorly there was secured to the skin with a 2- 0 nylon suture through a separate stab wound. The muscle was then closed laterally as well. The skin was then closed in layers circumferentially 3-0 Monocryl's deep dermis 4 Monocryl running subcuticular stitch. The patient was sat upright. We repositioned her needle nipple areola on the superior mastectomy flap. It was brought down to an area that was de-epithelialized for allow for proper positioning it was closed with 3-0 Monocryl's deep dermis. We then once again performed an intraoperative spy injecting 2 mL of dye. There was good inflow and outflow ofthe flap as well as the nipple areolar complex. All the wounds were cleansed and patted dry. Dermabond was applied. Patient tolerated procedure well. There was no intraoperative complications. Electronic Signature on File Electronically Reviewed/Signed by: Farhad Estrada DO Author Signature Dt/Tm:11/29/2023 12:52 PM Division of Plastic and Reconstructive Surgery [facility] Patient Care team information Care Team Personnel Name: Chapis Austin Ann Position: Pharmacist Schedule II Member Role: Pharmacy - Lifetime Name: MD Fraire Cara M Position: Referring DIRECT Member Role: Primary Care Provider Address: Address: [address] [place] [address] Name: Chapis Vásquez Jennifer Position: Pharmacist Schedule II Member Role: Pharmacy - Lifetime Name: Chapis Sanderson Brittani Position: Pharmacist Schedule II Member Role: Pharmacy - Lifetime Care Team Related Persons Name: SIS MARIE Name: SIS MARIE Address: [address], [place] [id number]
--- OUTSIDE RECORDS SUMMARY | 2023-12-12 01:42 | External Medical Summary | Continuity of Care Document ---
Author Name Unknown Organization 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 Jig Name Role Phone MustaphaloganMeghann Primary Care Physician [phone] [id number] Date(s): 11/20/23 - 11/20/23 [facility] [address] [facility] [address] [facility], [address], Entrance [address] [place] [id number] [phone] Encounter Diagnosis Body mass index [BMI] 27.0-27.9, adult(Discharge Diagnosis) - 11/20/23 History of breast cancer(Discharge Diagnosis) - 11/20/23 Discharge Disposition: Home or Self Care Attending Physician: MD Shrestha Nicholas D Referring Physician: MD Shrestha Daleela G Allergies, Adverse Reactions, Alerts No Known Medication Allergies Substance Reaction Severity Status Animal dander Asthma Active Dust Asthma Active Allergy Not found in Search 1 Asthma Active 1seasonal allergies Assessment and Plan Extracted from: Title:Breast Care Office Visit Note Author:DARRIUS Sánchez Nichole D Date:11/20/23 1.History of breast cancer Stephanie was seen in the breast care clinic today forbreast cancer surveillance. She is a pleasant 48-year-old with a history ofleft breast invasive ductal carcinomastatus postneoadjuvant chemotherapy and bilateral mastectomiesby Dr. Shrestha with tissue thermometer maker placement. Sheunderwent radiationand is scheduled for Patrica flap reconstruction. She is taking Zoladex and anastrozole. There is no evidence of disease today on clinical exam. She should return in 6 monthsfor MRIto evaluatefor possibleretainedclipafter surgery. Sheshould follow-up clinically for exam at that time as wellor sooner if needed. Medications acetaminophen/butalbital/caffeine 325 mg-50 mg-40 mg oral [...] Start Date: 11/15/21 Status: Ordered Amino Acid [place] Start: 11/15/21 12:40:00 EDT, Amino Acid [place], See Instructions, 1 scoop po daily Start [...] 10:47:00 EDT Start Date: 11/20/23 Status: Ordered Probiotic Formula Start: 11/15/21 12:45:00 [...] Start Date: 05/22/23 Status: Ordered Mental Status 11/20/23 Barriers to Learning one year Vision imp airment, Other: glasses Mandatory Health Literacy Documentation Yes Health Literacy Communication Barriers N ever Primary Language Slovak Problem List Condition Confirmation Course Effective Dates [...] Dates Health Status Cl inical Service Informant History of breast cancer Discharge Diagnosis 11/20/23 Body mass index [BMI] 27.0-27.9, adult Discharge Diagnosis 11/20/23 Non-Specified Procedures Procedure Date Related Diagnosis Body Site Status Bilateral mastectomy 1 04/03/22 Co mpleted Port 11/2021 Completed Lymph node biopsy 2 10/25/21 Compl eted Breast biopsy sample 3 09/26/21 Co mpleted D&C - Dilatation and curettage 2009 Completed Extraction of wisdom tooth 5 1994 Completed Eye surgery 6 1981 Completed Removal 7 Completed 1B/L Nipple-Sparing Mastectomies with Left [employer]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 guided targeted axillary node excision with SLNBX with Implant based reconstruction 2Left axillary node- positive for metastatic breast disease 3Left IDC with LN + ER/ID/HER2 + 4Miscarriage 5impacted 6"lazy eye" 7port Vital Signs Most recent to oldest [Reference Range]: 1 Height 160 cm (11/20/23 10:47 AM) Patient Weight 70.7 kg (11/20/23 10:47 AM) Body Mass Index 27.62 kg/m2 (11/20/23 10:47 AM) Temperature [36.5-37.9 DegC] 36.8 DegC (11/20/23 10:47 AM) Heart Rate 96 bpm (11/20/23 10:47 AM) Blood Pressure 106/70mmHg (11/20/23 10:47 AM) Cuff Pulse Pressure 36 mmHg (11/20/23 10:47 AM) Social History Social History Type Response [...] Unknown 09/11/25 Unknown Unknown Active Unk nown Breast Center Outpt Note * DARRIUS Sánchez Nichole D: PERFORM, MODIFY Event Display: Breast Center Outpt Note Authored Date: [id number] Chief Complaint follow up , exam History of Present Illness Yrn a [id number] year old [facility] Roby, for cancer surveillance due to a history of breast cancer. She was diagnosed with left breast4:00 grade IIinvasive ductal carcinomaER 91-100% ID 91-100%HER2+, grade 3 DCIS ER 91-100%ID 81- 90% on 09/26/21. Left axillary lymph node biopsy was positive for metastatic disease on 10/25/21. She underwent neoadjuvant chemotherapyand bilateralmastectomiesby Dr. Shrestha on 04/03/2022nd tissue thermometer maker placement by Dr. Estrada,with pathology showing 4 mm of residual disease and 3/4 lymph nodes positive for macrometastasis. She completed hmluudlaa15/16/2022. Theleft tissue thermometer maker had to be removed due to radiationeffectsandshe is going to be seeingDr. Estradain follow- upDecember to discuss further reconstructive options. [facility] and is onZoladex and anastrozole. She is toleratingendocrine therapy well. She is scheduledto undergo Patrica flap reconstruction of the left sideby Dr. Meza11/29/2023. She is also scheduled forhysterectomy and BSOon 01/03/2024. She denies any changes in her chest wall exam today including new lumps,indentations or skin discoloration. Stage: pT1a, pN1a M0 Last Imaging: After TE removed, will need MRI surveillance of chest wallfor retained clip after mastectomy Family History: Maternal grandfather with prostate cancer. Paternal grandfather with pancreatic cancer. No family history of breast cancer. Genetic Testing: Negative Bone Density:Reports recentbone density, normal. Social History: She is . She does not smoke. Review of Systems Patient denies any change in herchest wallexam including new asymmetry, new masses, skin changes, new or focal pain.She denies any symptoms of recurrence, such as: New lumps, bone pain, chest pain, dyspnea, abdominal pain or persistent headaches or excess fatigue. Physical Exam Vitals & Measurements T:36.8C HR:96(Monitored) BP:106/70 HT:160cm WT:70.7kg WT:70.700kg(Dosing) BMI:27.62 General: alert, oriented, no acute distress HEENT: normocephalic, sclera non-icteric, conjunctiva pink Neck: soft, supple Chest: non-labored, regular, lungs clear to auscultation, Cardiac: S1-S2 regular rate and rhythm, without murmur Breasts: Surgically absentwith implant reconstruction on the right, no discrete masses, no skin discoloration or palpable axillary lymphadenopathy Lymph: no palpable adenopathy in cervical, supraclavicular or axillary regions. Extremities: no cyanosis or edema, no gross evidence of lymphedema Neuro: grossly intact Assessment/Plan 1.History of breast cancer Stephanie was seen in the breast care clinic today forbreast cancer surveillance. She is a [id number] with a history ofleft breast invasive ductal carcinomastatus postneoadjuvant chemotherapy and bilateral mastectomiesby Dr. Shrestha with tissue thermometer maker placement. Sheunderwent cesar is scheduled for Patrica flap reconstruction. She is taking Zoladex and anastrozole. There is no evidence of disease today on clinical exam. She should return in 6 monthsfor MRIto evaluatefor possibleretainedclipafter surgery. Sheshould follow-up clinically for exam at that time as wellor sooner if needed. Problem List/Past Medical History Ongoing Anxiety Arthritis Asthma COVID-19 vaccine series completed Degenerative disc disease, lumbar Depression Jagjit's thyroiditis Heartburn Hiatal hernia History of breast cancer Infection of right elbow Migraines Mixed connective tissue disease Pre-op exam Raynauds syndrome Procedure/Surgical History Bilateral mastectomy| Service Date: 04/03/2022ort| Service Date: 11/2021Lymph node biopsy| Service Date: 10/25/2021 Breast biopsy sample| Service Date: 09/26/2021 D&C - Dilatation and curettage| Service Date: 2009Extraction of wisdom tooth| Service Date: 1994Eye surgery| Service Date: 1981Removal Medications acetaminophen(Tylenol), 1000 mg, PO, q8h acetaminophen/butalbital/caffeine(acetaminophen/butalbital/caffeine 325 mg-50 mg-40 mg oral capsule), 1 cap, PO, q4h, PRN acetaminophen/butalbital/caffeine(acetaminophen/butalbital/caffeine 325 mg-50 mg-40 mg oral tablet) albuterol(albuterol CFC free 90 mcg/inh MDI), 1 puff, inhaled, qid, PRN anastrozole(anastrozole 1 mg oral tablet), 1 mg= 1 tab, PO, Daily bifidobacterium-lactobacillus(Probiotic Formula), 1 cap, PO, Daily cetirizine(cetirizine 10 mg oral tablet), 10 mg= 1 tab, PO, Daily, PRN cholecalciferol(Vitamin D3 5000 intl units (125 mcg) oral capsule), 125 mcg= 1 cap, PO, Daily glutamine(glutamine oral powder for reconstitution), 5 g, PO ibuprofen, 1000 mg, PO, q8h levothyroxine(levothyroxine 112 mcg (0.112 mg) oral capsule), 100 mcg, PO, Daily levothyroxine(levothyroxine 100 mcg (0.1 mg) oral tablet) meloxicam(meloxicam 5 mg oral capsule) meloxicam(meloxicam 15 mg oral tablet) multivitamin with minerals(Calcium and Magnesium oral tablet), 1 tab, PO, Daily senna, 1 tab, PO, Daily sertraline, 75 mg, PO, Daily unknown medication(zoladex) unlisted medication(Medical Marijuana), See Instructions unlisted medication(Thyromin), See Instructions unlisted medication(Liothyrinine), See Instructions unlisted medication(Amino Acid [place]), See Instructions venlafaxine(venlafaxine 150 mg oral capsule, extended release), 150 mg= 1 cap, PO, Daily Allergies Allergy Not found in SearchAsthma Animal danderAsthma DustAsthma No Known Medication Allergies Social History Smoking Status Never smoked cigarettes Family History Pancreatic cancer: PGF. Prostate carcinoma: MGF. Electronic Signature on File Electronically Reviewed/Signed by: DARRIUS Genao Author Signature Dt/Tm:11/20/2023 01:36 PM Division of Oncology Surgery Electronically Reviewed/Signed by: Ford Shrestha MD Cosigner Signature Dt/Tm: 11/21/2023 02:06 PM Division of General Surgery [facility] Patient Care team information Care Team Personnel Name: Chapis Austin Ann Position: Pharmacist Schedule II Member Role: Pharmacy - Lifetime Name: MD Yee, Meghann Brunson Position: Referring DIRECT Member Role: Primary Care Provider Address: Address: [address] [place] [address] Name: Chapis Vásquez Jennifer Position: Pharmacist Schedule II Member Role: Pharmacy - Lifetime Care Team Related Persons Name: SIS MARIE Name: SIS MARIE Address: [address] [id number]
--- NOTE | 2023-12-12 07:09 | Hospitalist Progress Note ---
Date of Service December 12, 2023 Assessment & Plan (1) Immunocompromised state: (2) Malignant neoplasm of lower-outer quadrant of left breast of female, estrogen receptor positive: (3) Sepsis: (4) Hypercholesterolemia: (5) Vitamin D deficiency: (6) GERD without esophagitis: (7) Hypothyroidism: (8) Reactive airway disease: (9) TAMERA positive: (10) Depression, major: Plan Sepsis 2/2 Superficial Cellulitis a/w recent Flap Surgery/Drain Placement - History of left breast malignancy, for which patient has required mastectomy and reconstructive surgery - Antibiotics: 12/10: Transitioned from Daptomycin/Cefepime to Ceftriaxone 12/11: Transitioned from Ceftriaxone to Cephalexin 500 mg PO QID - Follow drainage culture and sensitivity - Negative blood cultures in both bottles - SIRS + w/ source Patient was briefly hypotensive, with persistent tachycardia and febrile at home Leukocytosis has resolved S/p fluid resuscitation, discontinued 12/11 - Pain Management Home regimen: acetaminophen and ibuprofen Consider hydrocodone as an alternative for at home pain control Inpatient regimen: Acetaminophen 650 mg by mouth every 6 hours PRN for mild pain or fever Toradol 10 mg IV every 6 hours PRN for moderate pain Morphine sulfate 4 mg IV every 3 hours PRN for severe pain - Breast Cancer Management Continue anastrozole 1 mg daily 12/11: [place]/ [place] [facility] de-escalating abx, continue ANAND drains, would require weight loss sales consultant removal if persistent infection Reactive airways disease- Continue albuterol sulfate HFA 2 puffs every 4 hours as needed Hypothyroidism- Continue both levothyroxine and liothyronine Depression- Continue sertraline and venlafaxine Admission and Anticipated Discharge Date Admission Date: December 10, 2023 Supervising Physician Co-Signing Physician Notes Attending Physician Supervision Note: I independently interviewed and examined the patient and verified the noguera history and physical, reviewed labs and image studies and agree with findings and care plan noted above. Pain in the chest area + Crawford chills later in the day. comfortable, no resp distress. drains intact. Sepsis sec to Cellulitis/s/p surgical flap left breast area - transition abx to oral. monitor overnight. pain control. -case has been discussed with the surgeon [place] [facility] Subjective The patient is a 48-year-old female with history of b/l breast cancer ER+ with metastasis to the lymph nodes, status post left breast flap surgery 1-1/2 weeks ago, hypercholesterolemia, vitamin D deficiency, hypothyroidism, GERD without esophagitis, migraine headache, psoriasis, Raynaud's disease and reactive airway disease presenting to the ED with fever, chills, body ache, and nausea. Patient had her first left breast weight loss sales consultant placed in Mar 2022 but after radiation the rapy, the skin necrosed and required reconstruction with back muscle. Currently on Anastrozole and Zoladex for breast cancer therapy. Patient had been doing well postoperatively, however, yesterday, she awoke with the above symptoms and noticed a change in drainage from the 2 chest drains from clear to cloudy and mixed with either pus or fat. Notes an episode of feeling overheated last night which resolved with some cool cloth. Overall feeling good today. Review of Systems Review of Systems: The patient denies palpitations, SOB, dyspnea on exertion, cough, lower extremity swelling, sore throat, vomiting, diarrhea, constipation, abdominal pain, pelvic pain, blood in urine or stool, dysuria, urinary frequency or urgency, lightheadedness, dizziness, headache. The review of systems is otherwise negative other than for that already noted above, and at least 10 systems have been reviewed. Physical Exam Physical Exam: The patient is awake, alert and oriented 3, well developed and well nourished, lying in bed and in no acute distress. HEENT--PERRL, EOMI, mucous membranes and oropharynx normal Heart--normal S1 and S2. No murmurs, rubs or gallops. Lungs--clear bilaterally, no respiratory distress, no accessory muscle use. Abdomen--normal bowel sounds and soft. Nontender. Nondistended Extremities--no cyanosis or clubbing. No edema. Dermatologic--status post skin flap surgery with 2 drains draining serous fluid, very mild erythema surrounding incision line on the left breast. Results & Data Results & Data Vital Signs (Past 12 Hours) Vital Signs Temp Pulse Pulse Resp BP Pulse Ox O2 Del Method 12/12/23 03:34 36.6 C 77 20 92/60 L 97 Room Air 12/11/23 23:40 96 H 12/11/23 22:47 37.0 C 95 H 18 94/59 L 94 Room Air 12/11/23 20:28 37.1 C 101 H 18 94/59 L 92 Room Air 12/11/23 20:18 Room Air Resident Activity Tracking Resident Involvement: Resident Care Provided Care Provided: Adult Hospital Medicine
[2023-12-12 07:41] LABS: Basophils # (auto) 0.01 K/uL (0.00-0.20); Basophils % (auto) 0.1 %; Eosinophils # (auto) 0.08 K/uL (0.00-0.50); Hematocrit (blood only) 31.7 % (37.0-47.0); Immature Granulocytes # (auto) 0.03 K/uL (0.01-0.20); Immature Granulocytes % (auto) 0.4 %; Lymphocytes % (auto) 9.8 %; Mean Corpuscular Hemoglobin 28.8 pg (25.0-34.0); Mean Corpuscular Hgb Conc 31.5 g/dL (32.0-36.0); Mean Corpuscular Volume 91.4 fL (80.0-100.0); Mean Platelet Volume 8.8 fL (9.4-12.4); Monocytes # (auto) 0.43 K/uL (0.11-0.59); Monocytes % (auto) 5.3 %; Neutrophils # (auto) 6.82 K/uL (1.40-6.50); Neutrophils % (auto) 83.4 %; Platelet Count 158 K/uL (130-400); RDW Coefficient of Variation 13.9 % (11.5-14.5); RDW Standard Deviation 46.5 fL (36.4-46.3); Red Blood Count 3.47 M/uL (4.20-5.40); White Blood Count 8.17 K/ul (4.8-10.8)
[2023-12-12 07:49] LABS: Albumin Globulin Ratio 1.1 (0.9-2); BUN Creatinine Ratio 12.3 (10-20); Bilirubin,Total 0.4 mg/dl (0.2-1.0); Calcium 8.1 mg/dl (8.6-10.3); Creatinine Clr Calc Pharmacy 99.2 ml/min; Est GFR (African American) 122.5 ml/min; Est GFR (Non-African American) 105.7 ml/min; Globulin 2.7 gm/dl (2.5-4.0); Magnesium 1.8 mg/dl (1.7-2.4); Potassium 3.9 mmol/L (3.5-5.1); Total Protein 5.7 gm/dl (6.0-8.3)
[2023-12-12] MEDS: cephALEXin 500 MG CAP PO SCH (09:19)
[2023-12-12] MEDS: MAGNESIUM SULFATE / D5W 1 GM/100 ML BAG IV SCH (09:42)
[2023-12-12] MEDS: POLYETHYLENE (MIRALAX) 17 GM PACK PO PRN (13:54)
[2023-12-12] MEDS: PROCHLORPERAZINE MALEATE 10 MG TAB PO PRN (16:25)
[2023-12-12] MEDS: diphenhydrAMINE 50 MG/ML VIAL IV ONE (23:54)
[2023-12-13 06:32] LABS: Basophils # (auto) 0.01 K/uL (0.00-0.20); Basophils % (auto) 0.2 %; Eosinophils # (auto) 0.07 K/uL (0.00-0.50); Eosinophils % (auto) 1.1 %; Hematocrit (blood only) 30.9 % (37.0-47.0); Immature Granulocytes # (auto) 0.01 K/uL (0.01-0.20); Immature Granulocytes % (auto) 0.2 %; Lymphocytes # (auto) 0.67 K/uL (1.20-3.40); Lymphocytes % (auto) 10.6 %; Mean Corpuscular Hemoglobin 28.9 pg (25.0-34.0); Mean Corpuscular Hgb Conc 32.4 g/dL (32.0-36.0); Mean Corpuscular Volume 89.3 fL (80.0-100.0); Mean Platelet Volume 8.9 fL (9.4-12.4); Monocytes # (auto) 0.39 K/uL (0.11-0.59); Monocytes % (auto) 6.2 %; Neutrophils # (auto) 5.15 K/uL (1.40-6.50); Neutrophils % (auto) 81.7 %; Platelet Count 188 K/uL (130-400); RDW Coefficient of Variation 13.4 % (11.5-14.5); RDW Standard Deviation 43.8 fL (36.4-46.3); Red Blood Count 3.46 M/uL (4.20-5.40)
[2023-12-13 06:59] LABS: Albumin Globulin Ratio 1.1 (0.9-2); Albumin Level 3.2 gm/dl (3.4-5.0); Bilirubin,Total 0.3 mg/dl (0.2-1.0); Calcium 8.3 mg/dl (8.6-10.3); Est GFR (Non-African American) 94.9 ml/min; Globulin 2.8 gm/dl (2.5-4.0); Magnesium 1.9 mg/dl (1.7-2.4); Potassium 4.3 mmol/L (3.5-5.1)
[2023-12-13 07:50] VITALS: BP 101/67; RESP 18; TEMP 98.4; O2SAT 95
--- NOTE | 2023-12-13 08:50 | Electrocardiogram Report ---
Test Reason : Blood Pressure : / mmHG Vent. Rate : 109 BPM Atrial Rate : 109 BPM P-R Int : 136 ms QRS Dur : 060 ms QT Int : 354 ms P-R-T Axes : 065 073 074 degrees QTc Int : 476 ms Sinus tachycardia Low voltage QRS Nonspecific ST and T wave abnormality Abnormal ECG When compared with ECG of 09-JAN-2023 21:53, Nonspecific T wave abnormality has replaced inverted T waves in Anterior leads Confirmed by Rubens Rushing ([id number]) on 12/13/2023 8:49:57 AM Referred By: REFERRED SELF Confirmed By:Rubens Rushing
--- NOTE | 2023-12-13 09:13 | Discharge Summary ---
Date of Service December 13, 2023 Admission HPI Per Admitting Provider The patient is a 48-year-old female with a past medical history including malignant neoplasm of lower outer quadrant of left breast, status post left breast flap surgery 1-1/2 weeks ago, hypercholesterolemia, vitamin D deficiency, hypothyroidism, GERD without esophagitis, migraine headache, psoriasis, Raynaud's disease and reactive airway disease. Patient had been doing well postoperatively, however, this morning she awoke with the above symptoms and noticed a change in drainage from the 2 chest drains from clear to cloudy. Dr. Cornell from the ED is spoken with [facility] surgeon Farhad Estrada, who feels that patient can remain at [facility] on IV antibiotics, and asks for a report in the a.m. of hospital staff Admission Exam Per Admitting Provider The patient is awake, alert and oriented 3, well developed and well nourished, normocephalic and atraumatic, lying in bed and in no acute distress. HEENT--PERRL, EOMI, mucous membranes and oropharynx normal Neck--supple. No JVD. No bruits. Thyroid normal, trachea midline, no adenopathy. Heart--normal S1 and S2. No murmurs, rubs or gallops. Lungs--clear bilaterally, no respiratory distress, no accessory muscle use. Abdomen--normal bowel sounds and soft. Nontender. Nondistended, no hernias or masses, no organomegaly. Extremities--no cyanosis or clubbing. No edema. There are good distal pulses b/l. Dermatologic--status post skin flap surgery with 2 drains draining cloudy red fluid Neurologic--cranial nerves II through XII grossly intact. Rheumatologic--limited exam postsurgery Psychiatric--normal affect. Principal Diagnosis Cellulitis Discharge Exam The patient is awake, alert and oriented, well developed and well nourished, lying in bed and in no acute distress. HEENT--EOMI, mucous membranes and oropharynx normal Heart--normal S1 and S2. No murmurs, rubs or gallops. Lungs--clear bilaterally, no respiratory distress, no accessory muscle use. Abdomen--Soft. Nontender. Nondistended Extremities--no cyanosis or clubbing. No edema. Dermatologic--status post skin flap surgery with 2 ANAND drains draining serous fluid, very mild erythema surrounding incision line on the left breast, nontender, no significant warmth though some induration Discharge Data Allergies Allergy/AdvReac Type Severity Reaction Status Date / Time animal dander Allergy Intermediate NASAL Verified 12/10/23 19:17 CONGESTION house dust AdvReac Intermediate NASAL Verified 12/10/23 19:17 CONGESTION Consultations 12/10/23 21:35 ED Decision to Admit Stat Ordered Studies 12/10/23 18:24 CT chest diagnostic w con Stat Hospital Course (1) Immunocompromised state: (2) Malignant neoplasm of lower-outer quadrant of left breast of female, estrogen receptor positive: (3) Sepsis: (4) Hypercholesterolemia: (5) Vitamin D deficiency: (6) GERD without esophagitis: (7) Hypothyroidism: (8) Reactive airway disease: (9) TAMERA positive: (10) Depression, major: Plan Sepsis 2/2 Superficial Cellulitis a/w recent Flap Surgery/Drain Placement - History of left breast malignancy, for which patient has required mastectomy and reconstructive surgery on 11/29/2023 - Antibiotics: 12/10: Transitioned from daptomycin/cefepime to ceftriaxone 12/11: Transitioned from ceftriaxone to cephalexin 500 mg PO QID -BCx negative x48 hours -SIRS + w/ source Patient was briefly hypotensive, with persistent tachycardia and febrile at home Leukocytosis has resolved S/p fluid resuscitation, discontinued 12/11 - Breast cancer management Continue anastrozole 1 mg daily 12/11: discussed w/ surgeon at [facility], de-escalating abx, continue ANAND drains, would require group president removal if persistent infection -Discharged on Keflex 500 mg QID to complete 10 day course, close f/u next week Reactive airways disease- Continued albuterol sulfate PRN No acute issues during stay Hypothyroidism- Continued both levothyroxine and liothyronine Depression- Continued sertraline and venlafaxine Total Time Total Time Spent Total Time Spent (In Minutes): 40 Discharge Plan Discharge Items Patient Disposition: Home - Self-Care Reason For Visit: CELLULITIS OF CHEST WALL, SEPSIS Discharge Diagnosis: Chest wall cellulitis Condition on Discharge: Serious Activity: Resume your previous activity Non-emergency contact: Primary Care Provider and Surgeon Call non-emergency contact if: your symptoms worsen Follow-up/Referrals: Meghann Fraire DO [Primary Care Provider] - 12/23/23 10:00 am Diet: Regular Addtl Attending Provider Instructions: You were admitted to the hospital for cellulitis, an infection of the skin around your incision site. You were treated with antibiotics which resolved the infection. We did discuss the case with your surgeon who advised to leave the drains in place. A discharge summary will be sent to your primary care physician to ensure continuity of care. Please bring this discharge summary with you to your next office appointment so that your provider can review it at that time. Follow-up appointments: - You have an appointment with Dr. Fraire on 12/22. - Please schedule a follow up with Dr. Estrada when you can. Medications: Your medication list has been reviewed and reconciled upon discharge to ensure accuracy and continuity of care. An updated list of all your medications is included with your hospital discharge paperwork. Please review this list closely, and make note of any changes. -We sent a new medication called Keflex to the pharmacy. You will take Keflex 500 mg every 6 hours for the next 6 days to treat the remainder of your skin infection. Take your medications as instructed; do not skip a dose of your medicines. Make sure all of your doctors know every medicine you are taking (including aeog-mtu-zovhszy medicines, vitamins, and supplements). Call your primary care provider before taking any new medicines (including rfpe-rlf-zcemrey medicines, vitamins, and supplements), because some of these may interact with your current medications, or may make your symptoms worse. Tell your primary care provider if you cannot afford your medications. CONTACT YOUR PRIMARY CARE PROVIDER and SURGEON if you experience any of the following: -Worsening rash- warmth, swelling or pain -Fever -Difficulty following your treatment plan, or difficulty taking medications CALL 911 OR GO TO THE EMERGENCY DEPARTMENT if you experience any of the following: - Sudden, severe abdominal pain or nausea/vomiting - Severe chest pain, or chest pain that radiates (moves) to your jaw or arm - Sudden, severe shortness of breath or difficulty breathing Thank you for allowing us to participate in your care Pending Studies at Discharge: No Stand-Alone Forms: My [facility] [employer] Medications and DC Order Prescriptions: New cephalexin 500 mg capsule 500 mg PO Q6H 6 Days Qty: 23 0RF Rx Instructions: Take your first dose at 2:30 PM today 12/13/23 and then every 6 hours until complete. Continued ondansetron HCl 8 mg tablet 8 mg PO Q8H PRN (Reason: NAUSEA/VOMITING) prochlorperazine maleate [Compazine] 10 mg tablet 10 mg PO Q6H PRN (Reason: NAUSEA/VOMITING) anastrozole 1 mg tablet 1 mg PO DAILY loratadine [Claritin] 10 mg tablet 10 mg PO DAILY liothyronine 5 mcg tablet 5 mcg PO QAM Qty: 90 1RF levothyroxine 100 mcg tablet 100 mcg PO DAILY Qty: 90 1RF uruwgyoxiy-paoefocahdwmt-frvb 50-325-40 mg tablet 1 tab PO Q4H PRN (Reason: migraine headache) Qty: 30 0RF albuterol sulfate 90 mcg/actuation HFA aerosol inhaler 2 puffs inhalation Q4H PRN (Reason: shortness of breath or wheezing) Qty: 1 0RF medical marijuana 1 dose inhalation DIRECTED PRN (Reason: NEEDED) THYROMIN 1 tab PO QAM PROBIOTIC SUPREME 1 tab PO QAM multivitamin Tablet 1 tab PO DAILY cholecalciferol (vitamin D3) 50 mcg (2,000 unit) capsule 50 mcg PO DAILY meloxicam 15 mg tablet 15 mg PO DAILY PRN (Reason: pain) Qty: 30 5RF Hold Instructions: On Eliquis venlafaxine 150 mg capsule,extended release 24hr 150 mg PO QAM sertraline 50 mg Tablet 75 mg PO QAM Zoladex 3.6 mg Implant 0 mg SUBCUT MONTHLY Rx Instructions: PT UNSURE OF DOSE, UNABLE TO VERIFY. Discharge Orders: Discharge Order (Routine); Ordered 12/13/23 Ordered By: Sergei Bazan/Other Patient Handouts: Cellulitis Dc, Sergo Katz Drain Tube Dc Admission Data Admit Date/Time: 12/10/23 22:27 Attending Provider: Minnie Waldrop Admit Provider: Chaka Ren Primary Care Provider: Meghann Fraire Other Providers: Chaka Ren Other Interventions: Discharge Summary Assessment (RN) Last Done: 12/13/23 10:13 Supervising Physician Co-Signing Physician Notes Attending Physician Supervision Note: I independently interviewed and examined the patient and verified the noguera history and physical, reviewed labs and image studies and agree with findings and care plan noted above. No fever, vitals stable. comfortable, no resp distress. drains intact. perisurgical incision area mild induration + Sepsis sec to Cellulitis/s/p surgical flap left breast area - transition abx to oral. tolerated. -case has been discussed with the surgeon at [facility] -d/c home.
[2023-12-13 10:37] VITALS: PULSE 90
== END 2023-12-13 11:16 | disposition home or self-care (01) | DRG 862 ==
LOC: ED 17:50 → EDINP 22:27 → SUATTDRO 22:27 → 2N 12-11 01:14

== ENCOUNTER 2024-01-03 08:30 | Inpatient (IN) ==
--- NOTE | 2023-12-24 12:03 | PAT Medication Instructions ---
Medication Instructions Date of Service December 24, 2023 Home Medications Medication Instructions Recorded albuterol sulfate 90 mcg/actuation 2 puffs inhalation Q4H PRN 02/08/20 aerosol inhaler shortness of breath or wheezing #1 g liothyronine 5 mcg tablet 5 mcg PO QAM #90 tabs 07/26/23 meloxicam 15 mg tablet 15 mg PO DAILY PRN pain #30 tabs 07/31/23 hcezmxvzly-rmegmyqhshouc-blxrhlfv 1 tab PO Q4H PRN migraine headache 08/19/23 50 mg-325 mg-40 mg tablet #30 tabs venlafaxine 150 mg capsule,extended release 24 hr 150 mg PO QAM albuterol sulfate 90 mcg/actuation aerosol inhaler 2 puffs inhalation Q4H PRN PROBIOTIC SUPREME 1 tab PO QPM THYROMIN 1 tab PO QAM sertraline 50 mg tablet 75 mg PO QAM medical marijuana 1 dose inhalation DIRECTED PRN loratadine 10 mg tablet (Claritin) 10 mg PO QAM anastrozole 1 mg tablet 1 mg PO QAM multivitamin 1 tab PO QPM ondansetron HCl 8 mg tablet 8 mg PO Q8H PRN prochlorperazine maleate 10 mg tablet (Compazine) 10 mg PO Q6H PRN goserelin 3.6 mg subcutaneous implant (Zoladex) 0 mg subcut MONTHLY liothyronine 5 mcg tablet 5 mcg PO QAM cholecalciferol (vitamin D3) 50 mcg (2,000 unit) capsule 50 mcg PO QPM meloxicam 15 mg tablet 15 mg PO DAILY PRN bfdloiddzt-tytauyyxnoljv-gggyasry 50 mg-325 mg-40 mg tablet 1 tab PO Q4H PRN acetaminophen 500 mg tablet 500 mg PO Q6H PRN ibuprofen 200 mg tablet (Advil) 200 mg PO Q6H PRN levothyroxine 100 mcg tablet 100 mcg PO QAM ASK your surgeon for instructions meloxicam 15 mg tablet 15 mg PO DAILY PRN cfhlqitzmm-vgvfdewsbcomy-rjtjrzmb 50 mg-325 mg-40 mg tablet 1 tab PO Q4H PRN ibuprofen 200 mg tablet (Advil) 200 mg PO Q6H PRN ASK your prescriber and surgeon anastrozole 1 mg tablet 1 mg PO QAM goserelin 3.6 mg subcutaneous implant (Zoladex) 0 mg subcut MONTHLY STOP taking 2 weeks before surgery (or as soon as possible if surgery is within 2 weeks) THYROMIN 1 tab PO QAM STOP taking 24 hours before surgery medical marijuana 1 dose inhalation DIRECTED PRN DO NOT take the morning of surgery loratadine 10 mg tablet (Claritin) 10 mg PO QAM Take morning of surgery With a small sip of water, OTHERWISE NOTHING TO EAT OR DRINK AFTER MIDNIGHT: venlafaxine 150 mg capsule,extended release 24 hr 150 mg PO QAM albuterol sulfate 90 mcg/actuation aerosol inhaler 2 puffs inhalation Q4H PRN (use if needed; please bring with you to hospital day of surgery if possible) sertraline 50 mg tablet 75 mg PO QAM ondansetron HCl 8 mg tablet 8 mg PO Q8H PRN(if needed) prochlorperazine maleate 10 mg tablet (Compazine) 10 mg PO Q6H PRN(if needed) liothyronine 5 mcg tablet 5 mcg PO QAM acetaminophen 500 mg tablet 500 mg PO Q6H PRN(if needed) levothyroxine 100 mcg tablet 100 mcg PO QAM Take evening before surgery albuterol sulfate 90 mcg/actuation aerosol inhaler 2 puffs inhalation Q4H PRN(if needed) PROBIOTIC SUPREME 1 tab PO QPM multivitamin 1 tab PO QPM ondansetron HCl 8 mg tablet 8 mg PO Q8H PRN(if needed) prochlorperazine maleate 10 mg tablet (Compazine) 10 mg PO Q6H PRN(if needed) cholecalciferol (vitamin D3) 50 mcg (2,000 unit) capsule 50 mcg PO QPM acetaminophen 500 mg tablet 500 mg PO Q6H PRN(if needed) Other Notes If you have any questions please call us at [phone] or [phone] or [phone] or [phone]
--- NOTE | 2023-12-27 11:00 | Anesthesiology Consultation ---
Date of Service December 27, 2023 Assessment & Plan (1) Encounter for pre-operative examination: Plan - check urine test STAT am DOS. - drain in place s/p left breast surgery with likely removal 12/30/23 per patient. - left arm restriction. - PCP pre-operative evaluation 12/27/23 [place]: "...Hospital f/u: Records, labs, imaging reviewed. Medications reviewed and reconciled. Sepsis d/t cellulitis- resolved: Continued abx treatment. Continue care as per [facility] Abnormal LFTs: Were trending down at admission. Recheck LFTs. Breast cancer: dx w/ invasive ductal carcinoma L breast dx 09/26/21, completed 6 cycles of neoadjuvant chemo February 2022, s/p b/l mastectomy w/ reconstruction on 04/03/22 w/ noted mets to local LN, s/p radiation completed 06/27/22. She has been started on adjuvant therapy, Kadcyla, completed February 2023. Suffered infection L breast, qa auditor removed in November 2022. Also port infection January 2023, now removed. s/p latissimus flay w/ qa auditor coverage in 11/2023 w/ 3 drains; now w/ only 1. In remission, remains on Anastole and Zoladex. Continue care as per Oncology...Pre-op exam...Patient is at acceptable risk for pursuing surgical intervention..." - discharge summary 12/13/23 [facility]: "...Sepsis 2/2 Superficial Cellulitis a/w recent Flap Surgery/Drain Placement- History of left breast malignancy, for which patient has required mastectomy and reconstructive surgery on 11/29/2023- Antibiotics: 12/10: Transitioned from daptomycin/cefepime to ceftriaxone. 12/11: Transitioned from ceftriaxone to cephalexin 500 mg PO QID-BCx negative x48 hours-SIRS + w/ source...Discharged on Keflex 500 mg QID to complete 10 day course, close f/u next week. Reactive airways disease-Continued albuterol sulfate PRN..." Chart Review Chart Review: Acceptable Risk for Surgery and Patient seen in Pre Admission Testing Teaching & Discussion Pre-Anesthesia Teaching/Discussion Notes: Instructed NPO after midnight before surgery, except medications with 15 cc of water. Medication instructions provided according to the PAT guidelines. History Surgery Operation Date: 01/03/24 10:05 Proposed Procedures p Total Abdominal Hysterectomy, Bilateral Salpingo-Oophorectomy - Dakota Hollis MD Height/Weight Height: 5 ft 2.5 in Weight: 72.5 kg Allergies Allergy/AdvReac Type Severity Reaction Status Date / Time animal dander Allergy Intermediate NASAL Verified 12/27/23 08:09 CONGESTION house dust AdvReac Intermediate NASAL Verified 12/27/23 08:09 CONGESTION Medications Home Medications Medication Instructions Recorded Confirmed Last Taken venlafaxine 150 mg 150 mg PO QAM 02/06/19 12/27/23 12/10/23 capsule,extended release 24 hr albuterol sulfate 90 mcg/actuation 2 puffs inhalation Q4H PRN 02/08/20 12/27/23 Unknown aerosol inhaler shortness of breath or wheezing #1 g PROBIOTIC SUPREME 1 tab PO QPM 12/29/20 12/27/23 12/10/23 THYROMIN 1 tab PO QAM 12/29/20 12/27/23 12/10/23 sertraline 50 mg tablet 75 mg PO QAM 11/07/21 12/27/23 12/10/23 medical marijuana 1 dose inhalation DIRECTED PRN 03/19/22 12/27/23 Unknown NEEDED loratadine 10 mg tablet (Claritin) 10 mg PO QAM 04/24/22 12/27/23 12/10/23 anastrozole 1 mg tablet 1 mg PO QAM 10/05/22 12/27/23 12/10/23 multivitamin 1 tab PO QPM 10/05/22 12/27/23 12/10/23 ondansetron HCl 8 mg tablet 8 mg PO Q8H PRN NAUSEA/VOMITING 10/05/22 12/27/23 Unknown prochlorperazine maleate 10 mg 10 mg PO Q6H PRN NAUSEA/VOMITING 10/05/22 12/27/23 Unknown tablet (Compazine) goserelin 3.6 mg subcutaneous 0 mg subcut MONTHLY 01/09/23 12/27/23 12/05/23 implant (Zoladex) liothyronine 5 mcg tablet 5 mcg PO QAM #90 tabs 07/26/23 12/27/23 12/10/23 cholecalciferol (vitamin D3) 50 50 mcg PO QPM 07/31/23 12/27/23 12/10/23 mcg (2,000 unit) capsule meloxicam 15 mg tablet 15 mg PO DAILY PRN pain #30 tabs 07/31/23 12/27/23 Unknown gpzvxunctd-itjsntatsunoy-nbpglwfd 1 tab PO Q4H PRN migraine headache 08/19/23 12/27/23 Unknown 50 mg-325 mg-40 mg tablet #30 tabs acetaminophen 500 mg tablet 500 mg PO Q6H PRN prn 12/20/23 12/20/23 Unknown ibuprofen 200 mg tablet (Advil) 200 mg PO Q6H PRN prn 12/20/23 12/27/23 Unknown levothyroxine 100 mcg tablet 100 mcg PO QAM 12/20/23 12/27/23 Unknown Past Medical History Medical History History of migraine Abnormal LFTs PCP monitoring Sensorineural hearing loss (SNHL) of both ears Tinnitus chronic Hyperlipidemia TAMERA positive mixed connective disorder Abnormal brain scan due to migraines Hiatal hernia Multilevel degenerative disc disease Psoriasis Raynaud's disease Depression with anxiety Allergic rhinitis Nausea and vomiting after administration of anesthetic agent denies scop patch History of breast cancer (2021) Left breast, chemo and radiation treatment ended February 2022 then mastectomy, began second round of chemo and radiation ended 02/2023 History of vertigo Streptococcal bacteremia (01/2023) DVT (deep venous thrombosis) (11/2021) Right subclavian GERD without esophagitis controlled, stable per pt Jagjit's thyroiditis Hypothyroidism Low back pain chronic Reactive airway disease controlled, stable per pt Patient denies h/o stroke, seizures, heart attack, heart failure, DM, HTN, or blood transfusions. Exercise / Class Metabolic Activity II 4-5 Yardwork/Stairs/Walk up hill (denies chest discomfort or shortness of breath with one flight of stairs) Past Family History Family History Mother Hypertension Dyslipidemia Grandfather Cancer Colorectal cancer Grandfather (Maternal) Myocardial infarction Prostate cancer Heart disease Stroke Father Hypertension Grandfather (Paternal) Pancreatic cancer Other Environmental allergies No family history of adverse response to anesthesia No family history of bleeding disorder Denies family history of Ovarian cancer Breast cancer Past Surgical History Surgical History History of breast surgery LAP flap breast surgery [place]/20[place] [facility], 2 drains present-following with [facility] History of removal of Port-a-Cath (01/12/23) Right subclavian Mediport Removal(Right) - Jerome Hsu, DO H/O dilation and curettage 2010 H/O bilateral mastectomy (04/03/22) w/ reconstruction History of History of wisdom tooth extraction History of eye surgery right Past Anesthesia History No Hx of Anesthesia Complications and No Family Hx of Anesthesia Complications History of PONV History of PONV (denies needing scop patch) and Hx of Motion Sickness Social History Smoking Status: Never smoker Do You Dip or Chew Tobacco: No Hx Alcohol Use: Yes Alcohol type: wine alcohol intake frequency: holidays/special occasions only Hx Substance Use: No substance use type: does not use Substance Use Type Other:: Medical marijuana-advised Last Used Substance Other:: Has medical card Review of Systems Patient denies chest pain, shortness of breath, dyspnea on exertion, snoring, witnessed apneas, cough, wheezing, or palpitations. Physical Exam Vital Signs Vitals BP 102/60 P 95 TEMP 97.7 SP02 95% on RA RESP 18 Physical Patient resting comfortably in chair in no acute distress, alert and oriented, responding appropriately throughout visit Full cervical extension range of motion without pain TMD 3.5 finger breadths Mallampati Score 2 Dentition: intact, denies chipped or loose teeth, caps/crowns, implants or bridges Lungs: normal respiratory effort. Good air movement, clear throughout to auscultation, no adventitious breath sounds Cardiac: regular rate and rhythm, no murmurs noted Carotid arteries: negative bruit bilat Lab Results Anesthesia Preop Results Results Anesthesia Widget: WBC 5.56 K/ul (4.8-10.8) 12/27/23 Hgb 13.0 g/dl (12.0-16.0) 12/27/23 Hct 39.3 % (37.0-47.0) 12/27/23 Plt 236 K/uL (130-400) 12/27/23 Na 139 mmol/L (136-145) 12/27/23 K 3.9 mmol/L (3.5-5.1) 12/27/23 Cl 104 mmol/L (98-107) 12/27/23 CO2 30 mmol/L (21-32) 12/27/23 BUN 9 mg/dl (6-23) 12/27/23 Creat 0.80 mg/dl (0.6-1.2) 12/27/23 Glucose Level 69 mg/dl (70-99(Fasting)) L 12/27/23 PT 10.1 Seconds (9.0-12.0) 12/27/23 PTT 27 Seconds (21-31) 12/27/23 INR 0.9 (0.9-1.1) 12/27/23 TSH 0.334 uIu/ml (0.300-4.500) 11/06/23 Urine Test Negative (Negative) 12/27/23 Urine Color Yellow 12/10/23 Urine Appearance Clear (Clear) 12/10/23 Urine pH 7.0 (4.5-7.5) 12/10/23 Urine Specific [place] 1.006 (1.000-1.030) 12/10/23 Urine Protein Negative (Negative) 12/10/23 Urine Glucose (UA) Negative (Negative) 12/10/23 Urine Ketones Negative (Negative) 12/10/23 Urine Blood Negative (Negative) 12/10/23 Urine Nitrite Negative (Negative) 12/10/23 Urine Bilirubin Negative (Negative) 12/10/23 Urine Urobilinogen Negative (Negative) 12/10/23 Urine Leukocyte Esterase Negative (Negative) 12/10/23 Blood Type O Positive 12/27/23 Antibody Screen NEGATIVE 12/27/23 Testing Electrocardiogram Date: 12/10/23 Sinus tachycardia, rate 109 bpm Low voltage QRS Nonspecific ST and T wave abnormality Chest X-Ray Date: 12/10/23 *1view* No acute process. Echocardiogram Date: 02/21/23 EF 60-65% Normal LV wall motion Grade I diastolic dysfunction No significant valvular heart disease Mild tricuspid regurgitation Other Testing Chest CT 12/10/23 1. Left breast implant, new from prior exam, appearing collapsed. It is unclear if this is intentional or reflects intracapsular rupture. Correlate clinically. 2. No abscess visualized. Soft tissue swelling and edema surrounding the left breast implant and extending to the posterior left chest wall, with some regions of suspected subcutaneous hematoma formation. Two subcutaneous drainage catheters are in place extending to the posterior left chest wall. Bone scan nuclear 10/15/23 There is no scintigraphic evidence of bony metastatic disease. Abdomen pelvis CT 10/07/23 1. No evidence of metastatic disease within the abdomen or pelvis. 2. Two low suspicion low-attenuation right adnexal lesions. These likely reflect cysts or dominant follicles. A follow-up pelvic ultrasound in 2 months to ensure resolution/stability is recommended.
--- NOTE | 2023-12-27 12:25 | History & Physical Report ---
Date of Service December 27, 2023 Assessment & Plan (1) Prolapsed uterus: History of Present Illness Chief Complaint: History of bilateral mastectomy triple negative breast cancer. Positive axillary nodes. Primary Care Provider: Meghann Fraire DO Patient is a 48-year-old 5 para 4 she has had 1 spontaneous AB. She had cancer diagnosed in her left breast in 2021. Triple negative breast cancer. Positive axillary nodes. Presently had a double mastectomy. Radiation treatment to the left axilla. 2 rounds of chemotherapy. Periods stopped after her last round of chemotherapy she has some minimal to moderate prolapse. Presently being scheduled for total abdominal hysterectomy bilateral salpingo- oophorectomy. Allergies Allergy/AdvReac Type Severity Reaction Status Date / Time animal dander Allergy Intermediate NASAL Verified 12/27/23 08:09 CONGESTION house dust AdvReac Intermediate NASAL Verified 12/27/23 08:09 CONGESTION Home Medications Medication Instructions Recorded Confirmed Type venlafaxine 150 mg 150 mg PO QAM 02/06/19 12/27/23 History capsule,extended release 24 hr albuterol sulfate 90 mcg/actuation 2 puffs inhalation Q4H PRN 02/08/20 12/27/23 Rx aerosol inhaler shortness of breath or wheezing #1 g PROBIOTIC SUPREME 1 tab PO QPM 12/29/20 12/27/23 History THYROMIN 1 tab PO QAM 12/29/20 12/27/23 History sertraline 50 mg tablet 75 mg PO QAM 11/07/21 12/27/23 History medical marijuana 1 dose inhalation DIRECTED PRN 03/19/22 12/27/23 History NEEDED loratadine 10 mg tablet (Claritin) 10 mg PO QAM 04/24/22 12/27/23 History anastrozole 1 mg tablet 1 mg PO QAM 10/05/22 12/27/23 History multivitamin 1 tab PO QPM 10/05/22 12/27/23 History ondansetron HCl 8 mg tablet 8 mg PO Q8H PRN NAUSEA/VOMITING 10/05/22 12/27/23 History prochlorperazine maleate 10 mg 10 mg PO Q6H PRN NAUSEA/VOMITING 10/05/22 12/27/23 History tablet (Compazine) goserelin 3.6 mg subcutaneous 0 mg subcut MONTHLY 01/09/23 12/27/23 History implant (Zoladex) liothyronine 5 mcg tablet 5 mcg PO QAM #90 tabs 07/26/23 12/27/23 Rx cholecalciferol (vitamin D3) 50 50 mcg PO QPM 07/31/23 12/27/23 History mcg (2,000 unit) capsule meloxicam 15 mg tablet 15 mg PO DAILY PRN pain #30 tabs 07/31/23 12/27/23 Rx ftyhvayeka-nxumwhzgvomln-ybqsnxrk 1 tab PO Q4H PRN migraine headache 08/19/23 12/27/23 Rx 50 mg-325 mg-40 mg tablet #30 tabs acetaminophen 500 mg tablet 500 mg PO Q6H PRN prn 12/20/23 12/20/23 History ibuprofen 200 mg tablet (Advil) 200 mg PO Q6H PRN prn 12/20/23 12/27/23 History levothyroxine 100 mcg tablet 100 mcg PO QAM 12/20/23 12/27/23 History Past Med/Surg History Problem List (Updated 12/27/23 @ 12:24 by Dakota Hollis MD) Prolapsed uterus Vitamin D deficiency Depression, major Dysmetabolic syndrome X Medical History History of migraine Abnormal LFTs PCP monitoring Sensorineural hearing loss (SNHL) of both ears Tinnitus chronic Hyperlipidemia TAMERA positive mixed connective disorder Abnormal brain scan due to migraines Hiatal hernia Multilevel degenerative disc disease Psoriasis Raynaud's disease Depression with anxiety Allergic rhinitis Nausea and vomiting after administration of anesthetic agent denies scop patch History of breast cancer (2021) Left breast, chemo and radiation treatment ended February 2022 then mastectomy, began second round of chemo and radiation ended 02/2023 History of vertigo Streptococcal bacteremia (01/2023) DVT (deep venous thrombosis) (11/2021) Right subclavian GERD without esophagitis controlled, stable per pt Jagjit's thyroiditis Hypothyroidism Low back pain chronic Reactive airway disease controlled, stable per pt Surgical History History of breast surgery LAP flap breast surgery 11/29/2023 at [facility], 2 drains present-following with [facility] History of removal of Port-a-Cath (01/12/23) Right subclavian Mediport Removal(Right) - Jerome Hsu DO H/O dilation and curettage 2010 H/O bilateral mastectomy (04/03/22) w/ reconstruction History of History of wisdom tooth extraction History of eye surgery right Family History Mother Hypertension Dyslipidemia Grandfather Cancer Colorectal cancer Grandfather (Maternal) Myocardial infarction Prostate cancer Heart disease Stroke Father Hypertension Grandfather (Paternal) Pancreatic cancer Other Environmental allergies No family history of adverse response to anesthesia No family history of bleeding disorder Denies family history of Ovarian cancer Breast cancer Social History Smoking Status: Never smoker Second Hand Exposure: No; Do You Dip or Chew Tobacco: No; Hx Alcohol Use: Yes Alcohol type: wine Alcohol Intake Frequency: 2-3 x/Week Hx Substance Use: No Preferred Language: Greek Communication Ability: Effective Communication Tools: Other Visual Impairment: No Limitations Hearing Ability: Normal Patient Care Representative Required: No Beliefs That Will Affect Care: None marital status: Current Living Situation: Spouse and Family current occupational status: employed 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 Neck was supple trachea midline. Thyroid was not enlarged. Chest was clear to auscultation and percussion. Heart had a regular rhythm S1 and S2 were normal. She had bilateral scars on her chest status post bilateral mastectomy. Scar in the left axilla from node dissection. Abdomen soft and nontender. Pelvic exam revealed moderate amount of prolapse. No adnexal masses. No calf tenderness
[~2024-01-03 08:30] MED LIST changes: +DEXAMETHASONE SOD INJ 4 MG/ML VIAL ONE; +DROPERIDOL 5 MG/2 ML VIAL ONE; +DexMEDEtomidine HCL IV 100 MCG/ML VIAL IV ONE; -GLC/500 PO; -LEVO88TA22 PO; +LIDOCAINE 2% 2 ML VIAL/AMP(20MG/ML) INFIL ONE; -LIOT5TAB9 PO; +MIDAZOLAM HCL 1 MG/ML 2ML VIAL ONE; +ONDANSETRON INJ 2 MG/ML 2 ML VIAL ONE; -PRENTAB26; +PROPOFOL IV EMULSION 10 MG/ML 20 ML VIAL IV ONE; +fentaNYL citrate PF 100 MCG/2 ML VIAL ONE
[2024-01-03] MEDS ORDERED: ATROPINE SULFATE 0.1 MG/ML 10ML SYR IV PRN (09:24)
[2024-01-03] MEDS ORDERED: HYDROmorphone INJ 2 MG/ML SYR/VIAL IV PRN (09:24)
[2024-01-03] MEDS ORDERED: ePHEDrine sulfate 50 MG/ML AMP IV PRN ×3 (09:24→15:43)
[2024-01-03] MEDS ORDERED: ONDANSETRON INJ 2 MG/ML 2 ML VIAL IV PRN ×3 (09:24→15:21)
[2024-01-03] MEDS ORDERED: BUPIVACAINE 0.5 % 5 MG/1 ML PF 10ML VIAL ONE (09:28)
[2024-01-03] MEDS ORDERED: MoRPHine SULFATE PF 1 MG/ML 10 ML AMP/VIAL ONE (09:30)
[2024-01-03] MEDS: LR 15ML/HR IV SCH (09:38)
--- NOTE | 2024-01-03 09:41 | History & Physical Bridge Note ---
Date of Service January 03, 2024 History & Physical Bridge Note I have examined the patient, reviewed the History & Physical and in the interval since the performance of the History & Physical I have noted the following changes of clinical significance: no changes noted
[2024-01-03] MEDS ORDERED: MIDAZOLAM HCL 1 MG/ML 2ML VIAL ONE (09:52)
[2024-01-03] MEDS ORDERED: MoRPHine SULFATE PF 1 MG/ML 10 ML AMP/VIAL INT SPINAL ONE ×2 (09:57→15:43)
[2024-01-03] MEDS ORDERED: diphenhydrAMINE 50 MG/ML VIAL IV PRN ×2 (09:57→15:43)
[2024-01-03] MEDS ORDERED: HYDROmorphone INJ 0.5 MG/0.5 ML SYR IV PRN ×2 (09:57→15:43)
[2024-01-03] MEDS ORDERED: NALBUPHINE HCL 5 MG in SYRINGE 0 ML IV PRN ×2 (09:57→15:43)
[2024-01-03] MEDS ORDERED: NALOXONE HCL 0.4 MG/1 ML VIAL/CARP IV PRN ×2 (09:57→15:43)
[2024-01-03] MEDS: cefOXitin 2,000 MG in DEXTROSE 5 % MINI-B 50 ML IV SCH (09:57)
[2024-01-03] MEDS ORDERED: NALOXONE HCL 1 MG in SODIUM CHLORIDE 0.9% 1,000 ML IV PRN ×2 (09:57→15:43)
[2024-01-03] MEDS ORDERED: NALOXONE HCL 0.08 MG in SYRINGE 1.8 ML IV PRN ×2 (09:57→15:43)
[2024-01-03] MEDS ORDERED: LACTATED RINGER'S 500 ML IV PRN ×2 (09:57→15:43)
[2024-01-03] MEDS ORDERED: MoRPHine SULFATE 2 MG/ML CARP IV PRN (09:57)
[2024-01-03] MEDS ORDERED: SODIUM CHLORIDE 0.9% 1,000 ML IV SCH ×2 (10:00→15:45)
[2024-01-03] MEDS ORDERED: DC INTRASPINAL MORPHINE SCH ×2 (10:00→15:45)
[2024-01-03] MEDS ORDERED: NO NARCOTICS OR SEDATIVES SCH ×2 (10:00→15:45)
[2024-01-03] MEDS ORDERED: SUGAMMADEX SODIUM 200 MG/2 ML VIAL IV ONE (10:27)
[2024-01-03] MEDS ORDERED: ROCURONIUM BROMIDE 10 MG/ML 5 ML VIAL IV ONE ×2 (10:38→11:44)
[2024-01-03] MEDS ORDERED: LARYING-O-JET KIT (LTA) ONE (10:38)
[2024-01-03] MEDS ORDERED: PHENYLEPHRINE 100MCG/ML 10ML SYR IV ONE ×2 (10:38→12:16)
[2024-01-03] MEDS ORDERED: ePHEDrine sulfate 50 MG/ML AMP ONE (10:41)
[2024-01-03] MEDS: HEPARIN (PORCINE) 1000 UNIT/ML 10 ML (CATH LAB USE ONLY) ONE (12:10)
[2024-01-03] MEDS ORDERED: HYDROmorphone INJ 1 MG/ML SYRINGE ONE (12:49)
--- NOTE | 2024-01-03 12:57 | Operative Report ---
Post Operative Report Pre & Post Diagnosis Operation Date: 01/03/24 10:05 Pre-Op Diagnosis: Prolapsed Uterus Post-Op Diagnosis: Prolapsed Uterus I identified the patient and participated in the time-out.: Yes Procedure Operation Date: 01/03/24 10:05 Actual Procedures p Total Abdominal Hysterectomy, Bilateral Salpingo-Oophorectomy(Not Applicable) - Dakota Hollis MD Surgeon Dakota Hollis MD Radio Intelligence Operator none Estimated Blood Loss 200 Findings Consistent with Post-Op Diagnosis uterine prolapse Specimens Uterus cervix both tubes both ovaries Anesthesia Type General Regional Complications none Description of Procedure Patient was brought to the OR correctly identified by armband and conversation. Positioned on the operating room table. Vaginal prep was performed. A Thompson catheter was inserted aseptically into the bladder connected to gravity drainage. Lower abdomen was prepped with an alcohol-based sterilizing solution draped in usual sterile fashion. Pfannenstiel incision was made carried down to the anterior fascia by sharp dissection. Fascia was incised transversely from the underlying muscle by blunt and sharp dissection. Recti muscles were in the midline exposing the peritoneum which was carefu lly raised and entered an Kenrick'Tonny-Lyudmila self retraining retractor was inserted into the incision. 4 laparotomy packs were used to pack off the intestines. What could be seen was a retroverted uterus both tubes both ovaries. Fundus of the uterus was grasped with a double-tooth tenaculum. Blood supply to both ovaries was identified on the lateral pelvic rowan and ligated with a Chromic Gut suture tied. and a silk round ligaments were clamped approximately with a Renae. Ligated distally with a transfixion suture of chromic and then proximal to this a silk tie. The round ligaments were cut and incision was made above the vesicouterine fold. The bladder was advanced out of the operative field. Adnexa were cut free from the lateral pelvic rowan. Uterine vessels on either side where exposed. Clamped with a curved Danny. Cut then doubly ligated with a Chromic Gut suture. The cardinal ligaments were clamped by sliding off the cervix with a curved Danny. Cutting with a stump and then ligating with a Chromic Gut suture this was done in 2 steps because of the length of the cardinal ligaments. The vagina was then entered posteriorly and incision and carried around the cervix thus excising the surgical specimen consisting of uterus cervix both tubes and ovaries the angles of the vaginal cuff was suture ligated to the stumps of the cardinal ligaments on either side. The vaginal cuff was approximated front to back with an interrupted suture of chromic gut and anchored to the stumps of the ligaments. Midportion of the vaginal cuff was whipstitched open. A Savanah drain with a safety pin was placed into the vagina the other end into the cul-de-sac posterior portion of the vagina was grasped with an Allis glzpwz-wh-auvoj suture of heavy Vicryl was used to approximate the uterosacral ligaments and give additional support of the vaginal cuff. Round ligaments were brought down and tied to the vaginal cuff on either side. Repair 10 analyzation was approximated with a triple 0 chromic and this covered all the stumps. And both of the sutures were tied in the midline. Pelvis was washed clean of all blood clots and debris hemostasis was excellent packs were removed retractor was removed. The abdomen was closed anatomically the peritoneum was closed with a running chromic gut suture. Recti muscles were approximated interrupted [id number] suture of chromic catgut fascia was closed with continuous interlocking suture of Vicryl on each side tied in the midline subcu was approximated with a running plain and the skin edge approximated with staple clips. Patient Toller procedure well left the OR in good condition thank you I attest to the content of the Intraoperative Record and any orders documented therein. Any exceptions are noted below.
[2024-01-03] MEDS: KETOROLAC 30 MG/ML VIAL IV PRN ×2 (13:18→20:27)
[2024-01-03] MEDS: fentaNYL citrate PF 100 MCG/2 ML VIAL IV PRN (13:20)
[2024-01-03] MEDS: METOPROLOL TARTRATE 1 MG/ML VIAL IV STA (14:00)
[2024-01-03] MEDS ORDERED: METOPROLOL TARTRATE 1 MG/ML VIAL IV ONE (14:01)
--- NOTE | 2024-01-03 14:17 | Anesthesiology Progress Note ---
Date of Service January 03, 2024 Anesthesia Post Procedure Vital Signs Vital Signs: Temp Pulse Pulse Resp BP Pulse Ox O2 Del Method 01/03/24 14:05 118 H 12 137/79 96 Oxymask 01/03/24 13:55 126 H 12 135/82 95 Oxymask 01/03/24 13:45 130 H 10 L 106/82 97 Oxymask 01/03/24 13:35 131 H 12 122/75 97 Oxymask 01/03/24 13:25 126 H 17 140/84 99 Oxymask 01/03/24 13:15 133 H 19 123/76 99 Oxymask 01/03/24 13:05 121 H 16 120/84 97 Oxymask 01/03/24 12:55 114 H 19 123/78 95 Oxymask 01/03/24 12:48 36.0 C L 122 H 12 120/69 96 Oxymask 01/03/24 09:13 37 C 94 H 18 115/84 96 Room Air O2 Flow Rate 01/03/24 14:05 10 01/03/24 13:55 10 01/03/24 13:45 10 01/03/24 13:35 10 01/03/24 13:25 10 01/03/24 13:15 10 01/03/24 13:05 10 01/03/24 12:55 10 01/03/24 12:48 10 01/03/24 09:13 Pain Intensity Abdomen: Pain Intensity: 3 Transfer of Care Handoff Completed per policy Notes Mental Status: alert / awake / arousable and participated in evaluation Patient Amnestic to Procedure: Yes Nausea / Vomiting: adequately controlled Pain: adequately controlled Airway Patency, RR, SpO2: stable & adequate BP & HR: stable & adequate (pt is tachycardic and recieved 2.5 mg of lopressor. pt does not have a cardiac history so I do not want to drop the BP too much as a consequence of treating HR) Hydration State: stable & adequate Anesthetic Complications: no major complications apparent and Pt Satisfied with anesthetic care
[2024-01-03] MEDS ORDERED: MEPERIDINE HCL 50 MG/ML CARP IV PRN (15:21)
[2024-01-03] MEDS ORDERED: KETOROLAC 30 MG/ML VIAL IV PRN (15:21)
[2024-01-03] MEDS: ACETAMINOPHEN 1,000 MG/100 ML VIAL IV PRN (16:05)
[2024-01-03] MEDS: D5W AND LACTATED RINGERS 1,000 ML IV SCH (16:10)
[2024-01-03] MEDS: ONDANSETRON INJ 2 MG/ML 2 ML VIAL IV PRN (21:51)
[2024-01-04] MEDS: PROMETHAZINE HCL 6.25 MG in SODIUM CHLORIDE 0.9% 50 ML IV PRN (00:08)
[2024-01-04 08:08] LABS: Potassium 3.7 mmol/L (3.5-5.1)
[2024-01-04 08:14] LABS: BUN Creatinine Ratio 10.9 (10-20); Creatinine Clr Calc Pharmacy 102.5 ml/min; Est GFR (African American) 123.2 ml/min; Est GFR (Non-African American) 106.3 ml/min
--- NOTE | 2024-01-04 08:27 | Obstetrical Progress Note ---
Date of Service January 04, 2024 Assessment & Plan Admission and Anticipated Discharge Date Admission Date: January 03, 2024 Subjective abdomen soft and non tender bandage removed incision is clean and dry bowel sounds present vaginal bleeding scant afebrile Results & Data Vital Signs (Past 12 Hours) Vital Signs Temp Pulse Resp BP Pulse Ox O2 Del Method O2 Flow Rate 01/04/24 05:22 18 98 01/04/24 04:45 36.8 C 100 H 18 117/69 98 Room Air 01/04/24 04:30 18 98 01/04/24 03:30 16 97 01/04/24 02:30 16 98 01/04/24 01:30 18 98 01/04/24 00:30 16 97 01/03/24 23:30 16 99 01/03/24 23:15 36.6 C 102 H 16 121/71 99 Nasal Cannula 1 01/03/24 22:45 18 98
[2024-01-04] MEDS: LIOTHYRONINE SODIUM 5 MCG TAB PO SCH (08:40)
[2024-01-04] MEDS: LEVOTHYROXINE SODIUM 100 MCG TABLET PO SCH (08:40)
[2024-01-04 09:20] LABS: Hematocrit (blood only) 35.3 % (37.0-47.0); Hemoglobin 11.5 g/dl (12.0-16.0)
--- OUTSIDE RECORDS SUMMARY | 2024-01-04 09:23 | External Medical Summary | Continuity of Care Document ---
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 Butter Filter Operator Name Role Phone Meghann Fraire Primary Care Physician [phone] [id number] Date(s): 12/30/23 - 12/30/23 [facility] [address] [facility] [address] [facility] [place] [phone] Encounter Diagnosis Breast deficiency, acquired(Discharge Diagnosis) - 12/30/23 Discharge Disposition: Home or Self Care Attending Physician: DO Estrada Dino J Referring Physician: MD Fraire Cara M Allergies, Adverse Reactions, Alerts No Known Medication Allergies Substance Criticality Severity Reaction Reaction Severity Status Animal dander Asthma Active Dust Asthma Active Allergy Not found in Search 1 Asthma Active 1seasonal allergies Assessment and Plan Extracted from: Title:Clinical Document Author:DO Estrada Dino J Date:12/30/23 OUTPATIENT NOTE Name: ISABELLA MARIE Patient Number:[id number] : 1975 Date of Service: 12/30/2023 Patient presents here today in follow-up. She presents with her . She reports she has been doing very well. She has had no interval changes in the last week. Today she is seen present medical coding technician. One of her back drains is at the level that can be removed and it was removed today without any difficulty. Her left-sided breast flap is completely viable. As is her nipple areolar complex. She has 1 residual left back drain in place and meets criteria for removal. Hr left back incision is healing well. Today her final drain was removed without difficulty. Assessment and plan. The patient is doing very well. All of her drains are now out. All of her incisions are healing well. At this point in time she has been told to increase her activity and she can participate in physical therapy and range of motion through her left shoulder. She should avoid any direct compression to the left axilla. She should use moisturizing cream to all of her surgical sites. And I plan seeing her back in 6 weeks time. At that point in time we will plan to start the outpatient expansions. She has been told to contact our office if she would have any interval problems questions or concerns. Medications acetaminophen/butalbital/caffeine 325 mg-50 mg-40 mg oral tablet Start: 11/20/23 10:49:00 AM EDT, 30 each, 0 Refill(s), TAKE 1 TABLET BY MOUTH EVERY 4 HOURS NEEDED FOR MIGRAINE HEADACHE Start Date: 11/20/23 Status: Ordered albuterol CFC free 90 mcg/inh MDI Start: 11/15/21 12:37:00 PM EDT, 1 puff, inhaled, qid, PRN: as needed for wheezing Start Date: 11/15/21 Status: Ordered anastrozole 1 mg oral tablet Start: 09/10/22 11:03:00 AM EST, 1 tab, PO, Daily Start Date: 09/10/22 Status: Ordered Calcium and Magnesium oral tablet Start: 11/15/21 12:41:00 PM EDT, 1 tab, PO, Daily Start Date: 11/15/21 Status: Ordered cetirizine 10 mg oral tablet Start: 11/15/21 12:39:00 PM EDT, 1 tab, PO, Daily, PRN: as needed for allergy symptoms Start Date: 11/15/21 Status: Ordered ibuprofen Start: 04/10/22 10:54:00 AM EDT, 1,000 mg =, PO, q8h Start Date: 04/10/22 Status: Ordered levothyroxine 100 mcg (0.1 mg) oral tablet Start: 11/20/23 10:49:00 AM EDT, 90 each, 0 Refill(s), TAKE 1 TABLET BY MOUTH EVERY DAY Start Date: 11/20/23 Status: Ordered Liothyrinine Start: 11/15/21 12:36:00 PM EDT, Liothyrinine, See Instructions, 5mcg po daily Start Date: 11/15/21 Status: Ordered liothyronine 5 mcg oral tablet Start: 12/30/23 8:46:00 AM EDT, 90 tab, 0 Refill(s) Start Date: 12/30/23 Status: Ordered Medical Marijuana Start: 02/20/22 2:44:00 PM EDT, Medical Marijuana, See Instructions Start Date: 02/20/22 Status: Ordered meloxicam 15 mg oral tablet Start: 11/20/23 10:49:00 AM EDT, 30 each, 0 Refill(s), TAKE 1 TABLET BY MOUTH DAILY NEEDED FOR PAIN Start Date: 11/20/23 Status: Ordered meloxicam 5 mg oral capsule Start: 11/20/23 10:47:00 AM EDT Start Date: 11/20/23 Status: Ordered oxyCODONE 5 mg oral tablet Start: 11/29/23 7:35:00 AM EDT, 1 tab, PO, q6h, Disp# 12 tab, Refills: 0, PRN: as needed for pain, Pharmacy: [facility] [place] Start Date: 11/29/23 Status: Ordered Probiotic Formula Start: 11/15/21 12:45:00 PM EDT, 1 cap, PO, Daily Start Date: 11/15/21 Status: Ordered sertraline Start: 11/15/21 12:38:00 PM EDT, 75 mg =, PO, Daily Start Date: 11/15/21 Status: Ordered Tylenol Start: 04/10/22 10:53:00 AM EDT, 1,000 mg =, PO, q8h Start Date: 04/10/22 Status: Ordered venlafaxine 150 mg oral capsule, extended release Start: 11/15/21 12:38:00 PM EDT, 1 cap, PO, Daily Start Date: 11/15/21 Status: Ordered Vitamin D3 5000 intl units (125 mcg) oral capsule Start: 11/15/21 12:41:00 PM EDT, 1 cap, PO, Daily Start Date: 11/15/21 Status: Ordered zoladex Start: 05/22/23 10:46:00 AM EDT, zoladex, once a month Start Date: 05/22/23 Status: Ordered Mental Status 12/30/23 Barriers to Learning one year Vision imp airment, Other: glasses Mandatory Health Literacy Documentation Yes Communication Barrier Present No Health Literacy Communication Barriers N ever Primary Language Kinyarwanda Problem List Condition Confirmation Course Effective Dates [...] Dates Health Status Cl inical Service Informant Breast deficiency, acquired Discharge Diagnosis 12/30/23 Procedures Procedure Date Related Diagnosis Body Site Status Reconstruction 1 11/29/23 Complete d Bilateral mastectomy 2 04/03/22 Co mpleted Port 11/2021 Completed Lymph node biopsy 3 10/25/21 Compl eted Breast biopsy sample 4 09/26/21 Co mpleted D&C - Dilatation and curettage 2009 Completed Extraction of wisdom tooth 6 1994 Completed Eye surgery 1981 Completed Removal 8 Completed 1left latissimus flap - delayed breast recon 2B/L Nipple-Sparing Mastectomies with Left Lilly Medical Coordinator Pesticide Use guided targeted axillary node excision with SLNBX with Implant based reconstruction 3Left axillary node- positive for metastatic breast disease 4Left IDC with LN + ER/AL/HER2 + 5Miscarriage 6impacted 7"lazy eye" 8port Vital Signs Most recent to oldest [Reference Range]: 1 Temperature [36.5-37.9 DegC] 37.0 DegC (12/30/23 8:52 AM) Heart Rate 91 bpm (12/30/23 8:52 AM) Blood Pressure 105/73mmHg (12/30/23 8:52 AM) Cuff Pulse Pressure 32 mmHg (12/30/23 8:52 AM) Social History Social History Type Response [...] Unknown 09/11/25 Unknown Unknown Active Unk nown Outpatient Note * DO Estrada Dino J: PERFORM Event Display: .Outpt Note Authored Date: [id number] OUTPATIENT NOTE Name: ISABELLA MARIE Patient Number:1 [id number] : 1975 Date of Service: 12/30/2023 Patient presents here today in follow-up. She presents with her . She reports she has been doing very well. She has had no interval changes in the last week. Today she is seen present medical coding technician. One of her back drains is at the level that can be removed andit was removed today without any difficulty. Her left-sided breast flap is completely viable. As isher nipple areolar complex. She has 1 residual left back drain in place and meets criteria for removal. Hr left back incision is healing well. Today her final drain was removed without difficulty. Assessment and plan. The patient is doing very well. All of her drains are now out. All of her incisions are healing well. At this point in time she has been told to increase her activity and she canparticipate in physical therapy and range of motion through her left shoulder. She should avoid anydirect compression to the left axilla. She should use moisturizing cream to all of her surgical sites. And I plan seeing her back in 6 weeks time. At that point in time we will plan to start the outpatient expansions. She has been told to contact our office if she would have any interval problems questions or concerns. Electronic Signature on File Electronically Reviewed/Signed by: Farhad Estrada DO Author Signature Dt/Tm:12/30/2023 09:15 AM Division of Plastic and Reconstructive Surgery [facility] Patient Care team information Care Team Personnel Name: Chapis Austin Ann Position: Pharmacist Schedule II Member Role: Pharmacy - Lifetime Name: MD Fraire Cara M Position: Referring DIRECT Member Role: Primary Care Provider Address: Address: [address] [place] [address] Name: Chapis Vásquez Jennifer Position: Pharmacist Schedule II Member Role: Pharmacy - Lifetime Name: Chapis Sanderson Brittani Position: Pharmacist Schedule II Member Role: Pharmacy - Lifetime Care Team Related Persons Name: SIS MARIE Name: SIS MARIE Address: [address], [place] [id number]
[2024-01-04] MEDS ORDERED: MELOXICAM 7.5 MG TAB PO PRN (10:04)
[2024-01-04] MEDS: oxyCODONE/ACETAMINOPHEN 5mg/325mg TAB PO PRN (10:07)
[2024-01-04] MEDS: IBUPROFEN 600 MG TAB PO PRN (10:07)
[2024-01-04] MEDS ORDERED: PROCHLORPERAZINE MALEATE 10 MG TAB PO SCH (10:15)
[2024-01-04] MEDS: MULTIVITAMIN TAB PO SCH (11:34)
[2024-01-04] MEDS: ANASTROZOLE 1 MG TAB PO SCH (11:34)
[2024-01-04] MEDS: VENLAFAXINE HCL XR 150 MG CAPXR PO SCH (11:35)
[2024-01-04] MEDS: SERTRALINE HCL 50 MG TABLET PO SCH (11:35)
[2024-01-04] MEDS: CHOLECALCIFEROL 25 MCG (1000 UNITS) TAB PO SCH (11:36)
[2024-01-04] MEDS ORDERED: LORATADINE 10 MG TAB PO SCH (11:57)
[2024-01-04] MEDS: LORATADINE 10 MG TAB PO SCH (12:13)
[2024-01-05 07:20] LABS: BUN Creatinine Ratio 13.8 (10-20); Calcium 8.4 mg/dl (8.6-10.3); Est GFR (African American) 101.8 ml/min; Est GFR (Non-African American) 87.8 ml/min; Potassium 3.6 mmol/L (3.5-5.1)
[2024-01-05 08:28] VITALS: BP 107/68; RESP 16; TEMP 98.2; O2SAT 95
[2024-01-05] MEDS ORDERED: LORATADINE 10 MG TAB PO SCH (09:00)
--- NOTE | 2024-01-05 09:42 | Obstetrical Progress Note ---
Date of Service January 05, 2024 Assessment & Plan Admission and Anticipated Discharge Date Admission Date: January 03, 2024 Subjective abdomen soft and non tender incision is clean and dry no calf tenderness ambulating well vaginal bleeding scant hgb 11.5 vickie drain is out Results & Data Vital Signs (Past 12 Hours) Vital Signs Temp Pulse Resp BP Pulse Ox O2 Del Method 01/05/24 08:00 36.8 C 108 H 16 107/68 95 Room Air 01/05/24 04:43 36.6 C 92 H 18 117/70 98 Room Air 01/05/24 00:40 37 C 91 H 20 104/68 94 Room Air
--- NOTE | 2024-01-05 09:43 | Discharge Summary ---
Date of Service January 05, 2024 Admission HPI Per Admitting Provider Patient is a 48-year-old 5 para 4 she has had 1 spontaneous AB. She had cancer diagnosed in her left breast in 2021. Triple negative breast cancer. Positive axillary nodes. Presently had a double mastectomy. Radiation treatment to the left axilla. 2 rounds of chemotherapy. Periods stopped after her last round of chemotherapy she has some minimal to moderate prolapse. Presently being scheduled for total abdominal hysterectomy bilateral salpingo- oophorectomy. Discharge Data Procedures Performed Operation Date: 01/03/24 10:05 Actual Procedures p Total Abdominal Hysterectomy, Bilateral Salpingo-Oophorectomy(Not Applicable) - Dakota Hollis MD
--- NOTE | 2024-01-05 09:48 | Discharge Summary ---
Date of Service January 05, 2024 Admission HPI Per Admitting Provider Patient is a 48-year-old 5 para 4 she has had 1 spontaneous AB. She had cancer diagnosed in her left breast in 2021. Triple negative breast cancer. Positive axillary nodes. Presently had a double mastectomy. Radiation treatment to the left axilla. 2 rounds of chemotherapy. Periods stopped after her last round of chemotherapy she has some minimal to moderate prolapse. Presently being scheduled for total abdominal hysterectomy bilateral salpingo- oophorectomy. Patient was admitted for total abdominal hysterectomy with bilateral salpingo- oophorectomy. Patient has metastatic breast cancer. The day of admission she was taken to the OR where she underwent total abdominal hysterectomy with bilateral salpingo-oophorectomy and suspension of the vaginal cuff. Postoperatively she did well she remained afebrile throughout her postoperative course. [place] drain in the vaginal cuff fell out on the second postoperative day. On second postoperative day she was ambulating well eating well incision was clean and dry. Hemoglobin was 11.9. She was given the usual instructions and told to return to the office in 1 week for removal of abbi. Discharge Data Procedures Performed Operation Date: 01/03/24 10:05 Actual Procedures p Total Abdominal Hysterectomy, Bilateral Salpingo-Oophorectomy(Not Applicable) - Dakota Hollis MD
[2024-01-05 10:02] VITALS: PULSE 117
== END 2024-01-05 13:27 | disposition home or self-care (01) | DRG 743 ==
LOC: ASU 08:30 → 4E1 12:52